=== PATIENT | female | born 1955 | race Caucasian/White ===

== ENCOUNTER 2020-01-26 17:10 | Emergency (ER) | payer BC, SELFPAY ==
[2020-01-26 17:40] VITALS: BP 161/79; PULSE 96; RESP 21; TEMP 36.7; O2SAT 98; BMI 37.1
--- NOTE | 2020-01-26 18:08 | HMH.EDUTC ---
[facility] [place] Disposition Clinical Impression: Abrasion, right lower leg, initial encounter Cellulitis Qualifiers: Site of cellulitis: extremity Site of cellulitis of extremity: lower extremity Laterality: right Qualified Code(s): L03.115 - Cellulitis of right lower limb Disposition: Home, Self-Care Condition on Discharge: Good Instructions: Cellulitis Additional Instructions: Keep the wound clean and dry. Follow up with your regular doctor. Take the antibiotics as directed and apply the topical antibiotics as directed. Watch the wound for signs of worsening infection, such as worsening redness, drainage, swelling, etc. GO TO THE ER FOR ANY WORSENING SYMPTOMS Prescriptions: Mupirocin [Bactroban 2% Ointment 22gm tube] 1 applicatio TP TID 7 Days #1 tube Transmission Status: Received by [facility] #[id number] Doxycycline Hyclate [Doxycycline 100mg Capsule] 100 mg PO Q12 10 Days #20 cap Transmission Status: Received by [facility] #[id number] Referrals: Edith King MD [Primary Care Provider] - Time of Disposition: 18:15 Medical Decision Making - Medical Records Medical records reviewed: No: I reviewed the patient's medical records. - Kam Inquiry Pt receiving controlled substance: No Vital Signs: 01/26/20 17:40 01/26/20 18:20 Temperature 98.1 F 98.1 F Temperature Source Oral Pulse Rate 96 H Pulse Rate [Left Brachial] 96 H Respiratory Rate 21 21 Blood Pressure 161/79 H Blood Pressure [Left Arm] 161/79 H Blood Pressure Mean [Left Arm] 106 Blood Pressure Source [Left Arm] Automatic Cuff Blood Pressure Position [Left Arm] Sitting 02 Sat by Pulse Oximetry 98 Oxygen Delivery Method Room Air [facility] [place] HPI - General Stated complaint: AO 01/17 cut R foot Time Seen by Provider: 01/26/20 18:08 Mode of Arrival: Ambulatory Source of Information: Patient Limitations: No Limitations Description of Symptoms (Recalled from Triage Doc. by RN): PATIENT C/O CUT TO RIGHT JAIME THAT OCCURED LAST SUNDAY. PATIENT STATES SHE THINKS SHE CUT IT ON A PAPER BAG CORNER; SHE IS CONCERNED BECAUSE SHE IS DIABETIC. REDNESS AND SWELLING NOTED TO AREA HEENT Symptoms (Recalled from RN notes): No Resp Symptoms (Recalled from RN notes): No Skin Symptoms (Recalled from RN notes): Yes MS Symptoms (Recalled from RN notes): No Functional Status (Recalled from RN notes): WNL - History of Present Illness Provider Complaint: She states that last week she bumped her right leg. this occured last week. Since then she has had a superficial abrasion on the lateral aspect of her right leg. She is diabetic. She states the skin around the wound has began to turn red. - Related Data Home Medications Medication Instructions Recorded Confirmed Empagliflozin [Jardiance] 25 mg PO DAILY 01/27/18 01/12/19 Glimepiride 4 mg PO BID 01/27/18 01/12/19 Levothyroxine Sodium [Synthroid 88 mcg PO DAILY 01/27/18 01/12/19 88mcg (0.088mg) tablet] Quinapril HCl 20 mg PO DAILY 01/27/18 01/12/19 Sitagliptin Phos/Metformin HCl 1 tab PO BID 01/27/18 01/12/19 [Janumet 50-1,000 mg Tablet] Previous Rx's Medication Instructions Recorded neomycin 3.5 mg-polymyxin 10,000 2 drp OPHTHALMIC QID 10 Days #7.5 07/24/18 unit-hydrocort 10 mg/mL eye ml drop,susp Doxycycline Hyclate [Doxycycline 100 mg PO Q12 10 Days #20 cap 01/26/20 100mg Capsule] Mupirocin [Bactroban 2% Ointment 1 applicatio TP TID 7 Days #1 tube 01/26/20 22gm tube] Allergies Allergy/AdvReac Type Severity Reaction Status Date / Time chlordiazepoxide Allergy Unknown Verified 07/24/18 17:43 [From LIBRAX (WITH CLIDINIUM)] clidinium Allergy Unknown Verified 07/24/18 17:43 [From LIBRAX (WITH CLIDINIUM)] iodine [IODINE] Allergy Unknown Verified 07/24/18 17:43 Penicillins [PENICILLINS] Allergy Unknown Verified 07/24/18 17:43 Sulfa (Sulfonamide Allergy Unknown Verified 07/24/18 17:43 Antibiotics) [SULFA (SULFONAMI
[2020-01-26 18:20] VITALS: BP 161/79; PULSE 96; RESP 21; TEMP 36.7; O2SAT 98
== END 2020-01-26 18:21 | disposition home or self-care (01) ==
PROVIDERS: Emergency Provider Nurse Practitioner Family; PCP Family Medicine
DX: S80.811A Abrasion, right lower leg, initial encounter (principal); L03.115 Cellulitis of right lower limb; E11.9 Type 2 diabetes mellitus without complications; I10 Essential (primary) hypertension
CPT/HCPCS: 99201

== ENCOUNTER 2020-10-24 19:44 | Emergency (ER) | payer BC, SELFPAY ==
[2020-10-24 20:00] VITALS: BP 167/85; PULSE 143; RESP 20; TEMP 37.9; O2SAT 95; BMI 35.5
--- NOTE | 2020-10-24 20:11 | HMH.EDUTC ---
[facility] [place] Disposition Clinical Impression: Fever, Tachycardia Disposition: Home, Self-Care Condition on Discharge: Good Instructions: Preventing the Spread of Coronavirus Discharge Instructions Additional Instructions: You have been tested for COVID19. Please isolate yourself as if you are positive until test results received. Referrals: Henry Sears MD [Primary Care Provider] - Forms: Work/School Release Time of Disposition: 20:31 Medical Decision Making - Kam Inquiry Pt receiving controlled substance: No Vital Signs: 10/24/20 20:00 Temperature 100.2 F H Temperature Source Oral Pulse Rate [Left] 143 H Respiratory Rate 20 Blood Pressure [Right Arm] 167/85 H Blood Pressure Mean [Right Arm] 112 02 Sat by Pulse Oximetry 95 - Lab Data Lab results reviewed: Yes: I reviewed the patient's lab results. Orders (Tests/Meds): ORDERS Category Date Time Status Covid-19 Nasal PCR ([facility]) Routine Lab 10/24/20 19:59 Received [facility] [place] HPI - General Stated complaint: headache and fever Time Seen by Provider: 10/24/20 20:11 Mode of Arrival: Ambulatory Source of Information: Patient Limitations: No Limitations Description of Symptoms (Recalled from Triage Doc. by RN): pt c/o a ROBINS x3 days and a fever, lethargy and cough developed this am. HEENT Symptoms (Recalled from RN notes): Yes (ROBINS) Resp Symptoms (Recalled from RN notes): No (cough) Skin Symptoms (Recalled from RN notes): Yes MS Symptoms (Recalled from RN notes): No Functional Status (Recalled from RN notes): fever and lethargy - History of Present Illness Provider Complaint: Headache, fever, sore throat, cough since this am. Potential exposure to COVID19. No vomiting or diarrhea. Onset (ago): day(s) (1) Relieving factors: none, movement Associated symptoms: cough, fever/chills Treatments prior to arrival: NSAID - Related Data Home Medications Medication Instructions Recorded Confirmed Empagliflozin [Jardiance] 25 mg PO DAILY 01/27/18 01/12/19 Glimepiride 4 mg PO BID 01/27/18 01/12/19 Levothyroxine Sodium [Synthroid 88 mcg PO DAILY 01/27/18 01/12/19 88mcg (0.088mg) tablet] Quinapril HCl 20 mg PO DAILY 01/27/18 01/12/19 Sitagliptin Phos/Metformin HCl 1 tab PO BID 01/27/18 01/12/19 [Janumet 50-1,000 mg Tablet] Previous Rx's Medication Instructions Recorded neomycin 3.5 mg-polymyxin 10,000 2 drp OPHTHALMIC QID 10 Days #7.5 07/24/18 unit-hydrocort 10 mg/mL eye ml drop,susp Doxycycline Hyclate [Doxycycline 100 mg PO Q12 10 Days #20 cap 01/26/20 100mg Capsule] Mupirocin [Bactroban 2% Ointment 1 applicatio TP TID 7 Days #1 tube 01/26/20 22gm tube] Allergies Allergy/AdvReac Type Severity Reaction Status Date / Time chlordiazepoxide Allergy Unknown Verified 07/24/18 17:43 [From LIBRAX (WITH CLIDINIUM)] clidinium Allergy Unknown Verified 07/24/18 17:43 [From LIBRAX (WITH CLIDINIUM)] iodine [IODINE] Allergy Unknown Verified 07/24/18 17:43 Penicillins [PENICILLINS] Allergy Unknown Verified 07/24/18 17:43 Sulfa (Sulfonamide Allergy Unknown Verified 07/24/18 17:43 Antibiotics) [SULFA (SULFONAMIDE ANTIBIOTICS)] morphine Allergy Verified 01/26/20 18:05 - Worker's Comp Is this a Worker's Comp case?: No [facility] History - Hepatitis A Screen Drug use history?: No High risk sexual behaviors?: No History of sexually transmitted infection?: No Currently employed?: No Childcare worker?: No Do you have indoor plumbing?: Yes Do you have electricity?: Yes Attestation statement:: This patient has been screened for Hepatitis A risk factors. I have reviewed the patient's past medical history: Yes 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: Reports:: Cancer, Diabetes Mellitus Type 2 - 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 Smoking Status: Never smoker Alcohol Intake: never Substance Use Type: denies use Occupational Status: other Housing: house Household Members: family Family Hx:: No significant family history ROS Obtain
[2020-10-24 20:25] LABS: UTC Strep Screen (Rapid) Negative (Negative)
[2020-10-24 20:40] VITALS: BP 167/85; PULSE 92; RESP 19; TEMP 37.7
== END 2020-10-24 20:41 | disposition home or self-care (01) ==
PROVIDERS: Emergency Provider Physician Assistant; PCP Family Medicine
DX: U07.1 COVID-19 (principal); E11.9 Type 2 diabetes mellitus without complications; Z79.899 Other long term (current) drug therapy; Z88.0 Allergy status to penicillin; Z88.2 Allergy status to sulfonamides
CPT/HCPCS: 87880; 99203; C9803; G0463; U0003; U0005

== ENCOUNTER → 2020-11-19 09:34 | Outpatient (CLI) | payer BC, SELFPAY ==
--- NOTE | 2020-11-19 09:39 | XR_ITS ---
PROCEDURE: XR SHOULDER LT MIN 2V CLINICAL INDICATION: LT SHOULDER PAIN COMPARISON: No exams were available for comparison FINDINGS: The clavicle is intact. There is a slightly high-riding humeral head with minor subacromial stenosis. There is minor spurring of the inferior AC joint. There are no soft tissue calcifications. IMPRESSION: Somewhat high-riding humeral head suggesting possibility of some degree of rotator cuff pathology Dictated by: Dr. Esdras Fulton MD 11/19/2020 10:26 Dr. Esdras Fulton MD in [place] 11/19/2020 10:26
== END ==
PROVIDERS: PCP Family Medicine; Visit Provider Family Medicine
DX: M25.512 Pain in left shoulder (principal)
CPT/HCPCS: 73030

== ENCOUNTER 2020-12-15 15:30 | Outpatient (RCR) | payer BC, SELFPAY ==
--- NOTE | 2020-12-07 14:49 | HMH.OTOPEV ---
OT Inpatient Evaluation Rehab OT Outpatient Eval Start: 12/07/20 14:36 Freq: Status: Active Protocol: Document 12/07/20 14:37 RMYENNY (Rec: 12/07/20 14:49 RMYENNY [id number]) Electronically Signed By Andrew Aponte OT 12/07/20 14:37 Outpatient Therapy Subjective History Subjective History Pt is a 65 year old female who reports to therapy for intial evaluation to left shoulder. Pt reports ~2 months ago her left shoulder begain having significant pain. She does not recall a specific injury initiating the pain. She has noticed since the pain started , the shoulder has become more stiff and weak. 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 This job requires constant bilatearl UE use: lifting, push/pull, and positioning. At this time she has not had a MRI or seen an ortho. She did have a x-ray showing a slight high riding humeral head. Pt has a past medical history of diabetes, HTN, Thyroid disorder, bladdar cancer. Pt does demonstrate with decreased AROM and strength at left shoulder. Pt will continue to be seen twice a week in order to address deficits. Chief Complaint Pain,Spasms,Weakness Symptom Type Ache,Throb,Sharp,Dull Symptoms Relieved By Nothing Symptoms Aggravated By Physical Activity,Lifting Prior Functional Limitations None Current Functional Limitations Reaching,Lifting,Housework, Driving,Sleeping,Recreation Activity Symptom Description Constant but Variable Level of pain today (0-10) 5 Pain scale - at its best (0-10) 3 Pain scale - at its worst (0-10) 8 Shoulder/Elbow Eval Shoulder Objective Measurements Shoulder ROM Left Shoulder Abduction Active Range of 115 degrees Motion (degrees) Shoulder Flexion Active Range of Motion 125 degrees (degrees) Query Text: Shoulder External Rotation Active Range 40 degrees of Motion (degrees)
--- NOTE | 2020-12-07 14:51 | HMH.OTOPEV ---
OT Inpatient Evaluation Rehab OT Outpatient Eval Start: 12/07/20 14:36 Freq: Status: Active Protocol: Document 12/07/20 14:37 RMYENNY (Rec: 12/07/20 14:49 RMYENNY [id number]) Electronically Signed By Andrew Aponte OT 12/07/20 14:37 Outpatient Therapy Subjective History Subjective History Pt is a 65 year old female who reports to therapy for intial evaluation to left shoulder. Pt reports ~2 months ago her left shoulder begain having significant pain. She does not recall a specific injury initiating the pain. She has noticed since the pain started , the shoulder has become more stiff and weak. 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 This job requires constant bilatearl UE use: lifting, push/pull, and positioning. At this time she has not had a MRI or seen an ortho. She did have a x-ray showing a slight high riding humeral head. Pt has a past medical history of diabetes, HTN, Thyroid disorder, bladdar cancer. Pt does demonstrate with decreased AROM and strength at left shoulder. Pt will continue to be seen twice a week in order to address deficits. Chief Complaint Pain,Spasms,Weakness Symptom Type Ache,Throb,Sharp,Dull Symptoms Relieved By Nothing Symptoms Aggravated By Physical Activity,Lifting Prior Functional Limitations None Current Functional Limitations Reaching,Lifting,Housework, Driving,Sleeping,Recreation Activity Symptom Description Constant but Variable Level of pain today (0-10) 5 Pain scale - at its best (0-10) 3 Pain scale - at its worst (0-10) 8 Shoulder/Elbow Eval Shoulder Objective Measurements Shoulder ROM Left Shoulder Abduction Active Range of 115 degrees Motion (degrees) Shoulder Flexion Active Range of Motion 125 degrees (degrees) Query Text: Shoulder External Rotation Active Range 40 degrees of Motion (degrees)
== END 2020-12-15 15:35 | disposition home or self-care (01) ==
LOC: OT 15:30
PROVIDERS: PCP Family Medicine; Visit Provider Family Medicine
DX: M25.512 Pain in left shoulder (principal)
CPT/HCPCS: 97010; 97110; 97166

== ENCOUNTER 2020-12-20 16:45 | Emergency (ER) | payer BC, SELFPAY ==
[2020-12-20 17:50] VITALS: BP 151/74; PULSE 90; RESP 21; TEMP 37.1; O2SAT 99; BMI 35.8
--- NOTE | 2020-12-20 18:51 | HMH.EDUTC ---
[facility] [place] Clinical Impression: Parotitis Disposition: Home, Self-Care Condition on Discharge: Good Instructions: DI for Parotitis-Adult, Parotitis Additional Instructions: Drink plenty of water, and stay well hydrated. Apply warm compresses to the swollen areas. You can gargle with warm salt water four times daily. If you have a blocked parotid gland you can gently massage the gland (s) that are affected to help return the normal... Eat soft foods that do not require too much chewing. Drink plenty of fluids. Follow up with Dr Segovia On as scheduled Return if needed Straight to ER if any life threatening symptom Prescriptions: Doxycycline Monohydrate [Doxycycline Stearns 100mg Tab] 100 mg PO Q12 10 Days #20 tab Transmission Status: Pending to [facility] #[id number] Referrals: Henry Sears MD [Primary Care Provider] - As needed Trever Segovia MD [Staff Physician] - 12/23/20 11:00 am Forms: Work/School Release Time of Disposition: 19:11 Medical Decision Making - Kam Inquiry Pt receiving controlled substance: No Kam was queried for this patient: No Vital Signs: 12/20/20 17:50 Temperature 98.7 F Temperature Source Oral Pulse Rate [Left Brachial] 90 Respiratory Rate 21 Blood Pressure [Left Arm] 151/74 H Blood Pressure Mean [Left Arm] 99 Blood Pressure Source [Left Arm] Automatic Cuff Blood Pressure Position [Left Arm] Sitting 02 Sat by Pulse Oximetry 99 Oxygen Delivery Method Room Air - Physician Consults Physician Consulted: Dr Segovia Time: 19:12 Reason -: ENT Eval/Care Comment/Response: Spoke with Dr Segovia he advised to start her on Doxy 100mg BID and have her come and see him in the office on at 11am and gargle warm salt water, drink plenty of fluids and take medications [facility] [place] [facility] [place] - General Stated complaint: L jaw swollen Time Seen by Provider: 12/20/20 18:20 Mode of Arrival: Ambulatory Source of Information: Patient Limitations: No Limitations Description of Symptoms (Recalled from Triage Doc. by RN): PATIENT C/O SWOLLEN LEFT JAW AND LEFT EAR PAIN THAT STARTED TODAY HEENT Symptoms (Recalled from RN notes): Yes Resp Symptoms (Recalled from RN notes): No Skin Symptoms (Recalled from RN notes): No MS Symptoms (Recalled from RN notes): No Functional Status (Recalled from RN notes): WNL - History of Present Illness Provider Complaint: Patient states that she is having pain in her left ear and noticed earlier today it looked a little swollen under her left ear and was tender to the touch States that she has TMJ and her jaw has been popping and not sure if she may have some swelling do to that Statse that she has been able to eat ok just feels like it is swollen and hurts States that as the evening has went on the swelling seems to be getting worse - Related Data Home Medications Medication Instructions Recorded Confirmed Empagliflozin [Jardiance] 25 mg PO DAILY 01/27/18 01/12/19 Glimepiride 4 mg PO BID 01/27/18 01/12/19 Levothyroxine Sodium [Synthroid 88 mcg PO DAILY 01/27/18 01/12/19 88mcg (0.088mg) tablet] Quinapril HCl 20 mg PO DAILY 01/27/18 01/12/19 Sitagliptin Phos/Metformin HCl 1 tab PO BID 01/27/18 01/12/19 [Janumet 50-1,000 mg Tablet] Previous Rx's Medication Instructions Recorded neomycin 3.5 mg-polymyxin 10,000 2 drp OPHTHALMIC QID 10 Days #7.5 07/24/18 unit-hydrocort 10 mg/mL eye ml drop,susp Doxycycline Hyclate [Doxycycline 100 mg PO Q12 10 Days #20 cap 01/26/20 100mg Capsule] Mupirocin [Bactroban 2% Ointment 1 applicatio TP TID 7 Days #1 tube 01/26/20 22gm tube] Doxycycline Monohydrate 100 mg PO Q12 10 Days #20 tab 12/20/20 [Doxycycline Stearns 100mg Tab] Allergies Allergy/AdvReac Type Severity Reaction Status Date / Time chlordiazepoxide Allergy Unknown Verified 07/24/18 17:43 [From LIBRAX (WITH CLIDINIUM)] clidinium Allergy Unknown Verified 07/24/18 17:43 [From LIBRAX (WITH C
[2020-12-20 19:10] VITALS: BP 151/74; PULSE 90; RESP 21; TEMP 37.1; O2SAT 99
== END 2020-12-20 19:14 | disposition home or self-care (01) ==
PROVIDERS: Emergency Provider Nurse Practitioner; PCP Family Medicine
DX: K11.20 Sialoadenitis, unspecified (principal); E11.9 Type 2 diabetes mellitus without complications; Z88.0 Allergy status to penicillin; Z88.2 Allergy status to sulfonamides; Z88.5 Allergy status to narcotic agent
CPT/HCPCS: 99202; G0463

== ENCOUNTER 2021-08-01 14:39 | Emergency (ER) | payer BC, MEDICARE, SELFPAY ==
[2021-08-01] VITALS (10 sets, daily range): BP systolic 133–164; BP diastolic 73–88; PULSE 108–130; RESP 16–18; TEMP 36.7; O2SAT 94–98; BMI 35.5
--- NOTE | 2021-08-01 14:35 | ECG_ITS ---
APPROVED REPORT Exam: Resting ECG HR:138 bpm ECG Measurements Heart Rate 138 AXES FL 143 P 58 QRSd 82 QRS -55 QT 302 T 58 QTc 382 Conclusion SINUS TACHYCARDIA LAD with LAFB Late r wave progression ABNORMAL ECG UNCONFIRMED REPORT Electronically signed by : Henry Macias MD 08/03/2021 14:45:14
--- NOTE | 2021-08-01 14:44 | XR_ITS ---
FINAL REPORT CLINICAL HISTORY: chest pain COMPARISON: January 27, 2018 FINDINGS: The heart size is normal. The mediastinum is normal. There is no focal infiltrate or edema. There are no pleural effusions. There is no pneumothorax. There is no osseous abnormality. IMPRESSION: No acute cardiopulmonary process Reviewed, Interpreted and Dictated by Dante Avitia III, MD Transcribed by Rey Rodríguez Authenticated and [facility]
--- NOTE | 2021-08-01 14:57 | HMH.EDCP ---
ED Disposition Clinical Impression: Nonspecific chest pain UTI (urinary tract infection) Qualifiers: Urinary tract infection type: acute cystitis Hematuria presence: with hematuria Qualified Code(s): N30.01 - Acute cystitis with hematuria Disposition: Home, Self-Care Condition on Discharge: Good Instructions: DI for Atypical Chest Pain Prescriptions: cephALEXin [Cephalexin 500mg Tab] 500 mg PO BID #20 tab Transmission Status: Pending to [email or web address] #[id number] Referrals: Henry Sears MD [Primary Care Provider] - - Critical Care Critical Care Time: No Attestation: On 08/01/21, the high probability of a clinically significant, sudden or life threatening deterioration of the following system(s) required my full and direct attention, intervention and personal management. The time I documented below is in addition to time spent performing reported procedures but includes the following listed in this critical care notation. Medical Decision Making - Medical Records Medical records reviewed: Yes: I reviewed the patient's medical records. - Kam Inquiry Pt receiving controlled substance: No Vital Signs: 08/01/21 14:39 08/01/21 15:54 Pulse Rate 115 H Pulse Rate [Left Radial] 130 H Respiratory Rate 18 16 Blood Pressure 146/75 H Blood Pressure [Right Arm] 135/73 Blood Pressure Mean [Right Arm] 93 Blood Pressure Source Automatic Cuff Blood Pressure Position Sitting 02 Sat by Pulse Oximetry 96 98 Oxygen Delivery Method Room Air Room Air - Lab Data Lab Results 08/01/21 14:48: WBC 19.6 H, RBC 5.50 H, Hgb 16.5 H, Hct 48.7 H, MCV 88.5, MCH 30.0, MCHC 33.9, RDW 13.9, Plt Count 224, MPV 10.0, Neut % (Auto) 85.2 H, Lymph % (Auto) 8.4 L, [place] % (Auto) 4.2, Eos % (Auto) 1.7, Baso % (Auto) 0.4, Neut # (Auto) 16.7 H, Lymph # (Auto) 1.7, [place] # (Auto) 0.8, Eos # (Auto) 0.3, Baso # (Auto) 0.1, Total Counted 100, Neutrophils % (Manual) 81 H, Lymphocytes % (Manual) 9 L, Monocytes % (Manual) 10 H, Platelet Estimate Normal, RBC Morphology Normal 08/01/21 14:48: Sodium 139, Potassium 3.9, Chloride 106, Carbon Dioxide 23, Anion Gap 13.9, BUN 6 L, Creatinine 0.50 L, Estimated Creat Clear 87, Estimated GFR 123, Est GFR ( Amer) 149, Glucose 204 H, Calcium 10.6 H, Total Bilirubin 0.8, AST 54 H, ALT 38, Alkaline Phosphatase 104, Troponin I < 0.01, NT-Pro-B Natriuret Pep 66.3, Total Protein 7.7, Albumin 4.4, Globulin 3.3 H, Albumin/Globulin Ratio 1.3, Lipase 144 08/01/21 15:50: Urine Color Yellow, Urine Appearance Clear, Urine pH 6.0, Ur Specific [place] >= 1.030, Urine Protein 2+, Urine Glucose (UA) Negative, Urine Ketones Trace, Urine Blood Trace-i, Urine Nitrate Negative, Urine Bilirubin 1+ A, Urine Urobilinogen 0.2, Ur Leukocyte Esterase Negative, Urine RBC 3-5, Urine WBC 3-5, Ur Squamous Epith Cells 5-10, Urine Bacteria 1+ 08/01/21 18:06: Troponin I < 0.01 Result diagrams: 08/01/21 14:48 08/01/21 14:48 Orders (Tests/Meds): ED MEDICATIONS Discontinued Medications Generic Name Dose Route Start Last Admin Trade Name Freq PRN Reason Stop Dose Admin Sodium Chloride 1,000 mls @ 999 mls/hr 08/01/21 14:45 08/01/21 14:49 Sod Chlor 0.9% 1000ml Bag IV 08/01/21 15:45 999 mls/hr .Q1H1M NICOL Administration ORDERS Category Date Time Status Troponin I Q3H Lab 08/01/21 20:45 Ordered - Radiology Data #1 Image(s): Chest Image Reviewed: Yes I reviewed the patient's radiology results, Yes I reviewed the patient's radiology image, Yes I have reviewed radiologist's interpretation Preliminary Findings: Normal/NAD - CT Data CT Scan: Abdomen, Pelvis Time Received: 18:[address] Reviewed: Yes: I have reviewed the patient's CT results, I have viewed the radiologist's interpretation Findings Narrative: IMPRESSION: 1. Nonobstructing stones in the collecting systems of both kidneys. 2. No other acute changes in the abdomen or pelvis. - ECG Data Tracing #1 I reviewed this ECG and
[2021-08-01 15:01] LABS: Basophils # 0.1 K/mm3 (0-0.2); Basophils % 0.4 % (0.1-2.0); Eosinophils # 0.3 K/mm3 (0.0-0.4); Eosinophils % 1.7 % (0.1-12.0); Hematocrit 48.7 % (37.0-47.0); Hemoglobin 16.5 g/dL (12.2-16.2); Lymphocytes # 1.7 K/mm3 (0.7-4.5); Lymphocytes % 8.4 % (10-50); Mean Corpuscular HGB Conc 33.9 g/dL (31.8-35.4); Mean Corpuscular Volume 88.5 fl (81-99); Monocytes # 0.8 K/mm3 (0.1-1.0); Monocytes % 4.2 % (1.7-9.3); Neutrophils # 16.7 K/mm3 (1.8-7.8); Neutrophils % 85.2 % (37.0-80.0); Platelet Count 224 K/mm3 (142-424); Red Cell Distribution Width 13.9 % (11.5-17.5); White Blood Count 19.6 K/mm3 (4.8-10.8)
[2021-08-01 15:03] LABS: MANUAL DIFFERENTIAL MANUAL DIFFERENTIAL (MANUAL DIFF)
[2021-08-01 15:04] LABS: Chloride 106 mmol/L (98-107); Potassium 3.9 mmoL/L (3.5-5.1); Sodium 139 mmol/L (136-145)
[2021-08-01 15:07] LABS: Alanine Aminotransferase 38 U/L (12-78); Albumin Level 4.4 g/dl (3.5-5.0); Albumin/Globulin Ratio 1.3 (1.1-1.8); Alkaline Phosphatase 104 U/L (38-126); Anion Gap 13.9 mEq/L (5-15); Aspartate Amino Transferase 54 U/L (14-36); Bilirubin,Total 0.8 mg/dl (0.2-1.3); Blood Urea Nitrogen 6 mg/dl (7-17); Calcium 10.6 mg/dl (8.4-10.2); Carbon Dioxide 23 mmol/L (22.0-30.0); Creatinine Clearance Estimated 87 mL/min (50-200); Estimated Glomerular Filt Rate 123 ml/min (>60); GFR (African American) 149 ML/MIN (>60); Globulin 3.3 g/dL (1.3-3.2); Glucose 204 mg/dl (74-100); Lipase 144 U/L (23-300); Total Protein,Serum 7.7 g/dl (6.3-8.2)
[2021-08-01 15:18] LABS: Lymphocytes % 9 % (10-50); Monocytes % 10 % (2-9); NT Pro Brain Natriuretic Pep. 66.3 pg/mL (0-125); Neutrophils % 81 % (42-76); Total Cells Counted 100
[2021-08-01 15:20] LABS: Platelet Estimate Normal; RBC Morphology Normal
[2021-08-01 15:27] LABS: Troponin I < 0.01 ng/ml (0.00-0.034)
--- NOTE | 2021-08-01 15:47 | PC.NURSE ---
Rounded on patient at this time. Pt up and ambulated to restroom.
[2021-08-01 15:54] LABS: Microscopic, Urine URINE MICROSCOPIC (MICROSCOPIC)
--- NOTE | 2021-08-01 15:54 | PC.NURSE ---
pt returned from restroom, able to provide urine sample. Hooked back up to fluids and datascope. Warm blankets provided. No other needs at this time.
[2021-08-01 16:05] LABS: Appearance,Urine CLEAR (Clear); Blood, Urine TRACE-I (Negative); Color,Urine YELLOW (Yellow); Glucose,Urine (UA) Negative (Negative); Ketones,Urine TRACE (Negative); Leukocyte Esterase,Urine Negative (Negative); Nitrate,Urine Negative (Negative); Protein,Urine 2+ (Negative); Specific Gravity, Urine >= 1.030 (1.005-1.030); Urobilinogen,Urine 0.2 EU/dl (0.2)
[2021-08-01 16:26] LABS: Bilirubin,Urine 1+ (Negative)
[2021-08-01 16:34] LABS: Bacteria,Urine 1+ /lpf
--- NOTE | 2021-08-01 17:03 | CT_ITS ---
PROCEDURE INFORMATION: Exam: CT Abdomen And Pelvis Without Contrast Exam date and time: 08/01/2021 5:17 PM Age: 65 years old Clinical indication: Abdominal pain; Prior surgery; Additional info: Low abd pain, h/o kidney stones TECHNIQUE: Imaging protocol: Computed tomography of the abdomen and pelvis without contrast. Radiation optimization: All CT scans at this facility use at least one of these dose optimization techniques: automated exposure control; mA and/or kV adjustment per patient size (includes targeted exams where dose is matched to clinical indication); or iterative reconstruction. COMPARISON: ABDPELW/O CT ABD PELVIS W/O CONTRAST 10/04/2016 1:09 AM FINDINGS: Liver: Mild diffuse fatty infiltration again noted. No focal lesions or acute changes. Gallbladder and bile ducts: Prior cholecystectomy again noted. Normal bile ducts. Pancreas: Diffuse atrophy again noted. No acute changes or focal lesions. Spleen: Normal. No splenomegaly. Adrenal glands: Normal. No mass. Kidneys and ureters: Small nonobstructing renal collecting system stones. No obstructing stones or hydronephrosis. No obstructing stones or hydronephrosis. Stomach and bowel: Unremarkable. No obstruction. No mucosal thickening. Appendix: No evidence for appendicitis. Intraperitoneal space: Unremarkable. No free air. No significant fluid collection. Vasculature: Unremarkable. No abdominal aortic aneurysm. Lymph nodes: Unremarkable. No enlarged lymph nodes. Urinary bladder: Unremarkable as visualized. Reproductive: Unremarkable as visualized. Bones/joints: [id number] degenerative changes in the spine. Diffuse idiopathic skeletal hyperostosis. No fractures. Soft tissues: Unremarkable. IMPRESSION: 1. Nonobstructing stones in the collecting systems of both kidneys. 2. No other acute changes in the abdomen or pelvis.
[2021-08-01 18:37] LABS: Troponin I < 0.01 ng/ml (0.00-0.034)
== END 2021-08-01 19:18 | disposition home or self-care (01) ==
PROVIDERS: Emergency Provider Emergency Medicine; PCP Family Medicine
DX: N13.6 Pyonephrosis (principal); R07.9 Chest pain, unspecified; E11.9 Type 2 diabetes mellitus without complications; Z85.9 Personal history of malignant neoplasm, unspecified; Z88.0 Allergy status to penicillin; Z88.2 Allergy status to sulfonamides; Z88.8 Allergy status to other drugs, medicaments and biological substances
CPT/HCPCS: 36415; 71045; 74176; 80053; 81001; 83690; 83880; 84484; 85007; 85025; 93005; 96360; 99285

== ENCOUNTER 2021-11-29 19:35 | Inpatient (IN) | payer BC, MEDICARE, SELFPAY ==
[2021-11-29 20:50] VITALS: BP 125/51; PULSE 138; RESP 22; TEMP 37.4; O2SAT 99; BMI 35.5
--- NOTE | 2021-11-29 21:10 | PC.NURSE ---
Dr. Rodriguez at bedside
[2021-11-29 21:13] VITALS: BMI 35.5
--- NOTE | 2021-11-29 21:13 | CT_ITS ---
PROCEDURE INFORMATION: Exam: CT Abdomen And Pelvis With Contrast Exam date and time: 11/29/2021 9:55 PM Age: 66 years old Clinical indication: Nausea and vomiting; Additional info: Abd pain, n/v/d TECHNIQUE: Imaging protocol: Computed tomography of the abdomen and pelvis with contrast. Radiation optimization: All CT scans at this facility use at least one of these dose optimization techniques: automated exposure control; mA and/or kV adjustment per patient size (includes targeted exams where dose is matched to clinical indication); or iterative reconstruction. Contrast material: ISOVUE; Contrast volume: 75 ml; Contrast route: IV; COMPARISON: CT ABDOMEN PELVIS WO CON 08/01/2021 5:17 PM FINDINGS: Lungs: There is a 3 mm calcified nodule of the right lower lobe. No focal consolidation. No pleural effusion. Liver: The liver is mildly enlarged measuring 22 cm. There is diffuse low-attenuation of the liver consistent with fatty infiltration. There are mildly nodular hepatic surface contours suggesting parenchymal liver disease. No discrete hepatic mass. Gallbladder and bile ducts: Status post cholecystectomy. Pancreas: Unremarkable. Spleen: Mild splenomegaly. Small splenic calcification noted. Adrenal glands: Unremarkable. Kidneys and ureters: There is a 3 mm nonobstructing right renal stone. There are a few left nonobstructing renal stones measuring up to 4 mm. No hydronephrosis or renal mass. The ureters are normal in caliber. Stomach and bowel: Small bowel caliber is normal. No evidence of obstruction. No bowel wall thickening. No significant colonic diverticulosis or CT evidence of acute diverticulitis. Appendix: No evidence of appendicitis. Intraperitoneal space: No free air. No significant fluid collection. Retroperitoneal space: No bulky lymphadenopathy. Vasculature: Unremarkable. No abdominal aortic aneurysm. Lymph nodes: Unremarkable. No enlarged lymph nodes. Urinary bladder: The urinary bladder is decompressed and unremarkable. Reproductive: Status post hysterectomy. Bones/joints: Unremarkable. No acute osseous abnormality. Soft tissues: There are postoperative changes of the periumbilical ventral abdominal wall, stable. No abdominal wall hernia. IMPRESSION: 1. No acute findings. 2. Mild hepatosplenomegaly with diffuse fatty infiltration of liver. Nodular hepatic surface contours suggest parenchymal liver disease. 3. Bilateral nonobstructing nephrolithiasis. 4. Status post cholecystectomy and hysterectomy.
--- NOTE | 2021-11-29 21:16 | PC.NURSE ---
verbal orders received from Dr. Rodriguez, orders placed
[2021-11-29 21:21] LABS: Coronavirus 19, PCR Not Detected (NotDetected); Influenza A, PCR Not Detected (NotDetected); Influenza B, PCR Not Detected (NotDetected)
[2021-11-29 21:30] LABS: Basophils # 0.1 K/mm3 (0-0.2); Basophils % 0.5 % (0.1-2.0); Eosinophils # 0.3 K/mm3 (0.0-0.4); Eosinophils % 1.2 % (0.1-12.0); Hematocrit 50.7 % (37.0-47.0); Hemoglobin 16.2 g/dL (12.2-16.2); Lymphocytes # 1.3 K/mm3 (0.7-4.5); Lymphocytes % 6.2 % (10-50); Mean Corpuscular Hemoglobin 29.8 pg (27.0-31.2); Monocytes # 0.8 K/mm3 (0.1-1.0); Monocytes % 3.9 % (1.7-9.3); Neutrophils # 18.8 K/mm3 (1.8-7.8); Neutrophils % 88.1 % (37.0-80.0); Platelet Count 321 K/mm3 (142-424); Red Blood Count 5.45 M/mm3 (4.20-5.40); Red Cell Distribution Width 13.8 % (11.5-17.5); White Blood Count 21.3 K/mm3 (4.8-10.8)
[2021-11-29 21:33] LABS: Chloride 99 mmol/L (98-107); Potassium 3.6 mmoL/L (3.5-5.1); Sodium 139 mmol/L (136-145)
[2021-11-29 21:35] LABS: MANUAL DIFFERENTIAL MANUAL DIFFERENTIAL (MANUAL DIFF)
[2021-11-29 21:36] LABS: Alanine Aminotransferase 38 U/L (12-78); Alkaline Phosphatase 121 U/L (38-126); Amylase 51 U/L (30-110); Anion Gap 24.6 mEq/L (5-15); Aspartate Amino Transferase 62 U/L (14-36); Bilirubin,Total 1.1 mg/dl (0.2-1.3); Blood Urea Nitrogen 9 mg/dl (7-17); Calcium 10.1 mg/dl (8.4-10.2); Carbon Dioxide 19 mmol/L (22.0-30.0); Creatinine Clearance Estimated 86 mL/min (50-200); Estimated Glomerular Filt Rate 72 ml/min (>60); GFR (African American) 87 ML/MIN (>60); Glucose 268 mg/dl (74-100); Lipase 179 U/L (23-300)
[2021-11-29 21:37] LABS: Albumin Level 4.6 g/dl (3.5-5.0); Albumin/Globulin Ratio 1.4 (1.1-1.8); Globulin 3.4 g/dL (1.3-3.2)
[2021-11-29 21:42] LABS: Lactic Acid 7.6 mmol/L (0.7-2.1)
--- NOTE | 2021-11-29 21:49 | PC.NURSE ---
Dr. Rodriguez notified of critical lactic
--- NOTE | 2021-11-29 21:57 | PC.NURSE ---
Pt reports to [facility] of a previous reaction during head ct with contrast approx [address] Rodriguez notified and s/w pt and regarding this. Pt reports she had hives all over my throat . Denies any breathing trouble a this occurrence. Pt agreed to have CT with contrast and will monitor for any reaction.
--- NOTE | 2021-11-29 21:58 | HMH.EDNVD ---
Discharge Plan Disposition Patient Disposition: Admitted As Inpatient Chief Complaint: Nausea/Vomiting/Diarrhea Prescriptions Prescriptions: No Action metformin 1,000 mg tablet 500 mg PO BID Label Comments: TAKE 1 TABLET BY MOUTH TWICE DAILY WITH A MEAL Rybelsus 14 mg tablet 14 mg PO DAILY Label Comments: TAKE 1 TABLET BY MOUTH EVERY DAY 30 MINUTES BEFORE FIRST FOOD OR BEVERAGE OR MEDICINE OF THE DAY levothyroxine 88 MCG tablet 88 mcg PO DAILY glimepiride 4 MG tablet 4 mg PO BID quinapril 20 MG tablet 20 mg PO DAILY Referrals Follow up/Referrals: Edith King MD [Primary Care Provider] - See instructions Clinical Impressions Clinical Impression: Gastroenteritis, DKA (diabetic ketoacidosis), Diabetes mellitus, Obesity Instructions Patient Instructions: DI for Diarrhea and Traveler's Diarrhea -- Adult, DI for Diarrhea and Traveler's Diarrhea -- Child, DI for Nausea -- Adult, DI for Nausea -- Child Discharge ED Provider: Samuel Rodriguez Nausea/Vomiting/Diarrhea HPI General Chief complaint: Nausea/Vomiting/Diarrhea Stated complaint: V&D Time Seen by Provider: 11/29/21 21:20 Mode of Arrival: Family Vehicle Source of Information: Patient Limitations: No Limitations Description of Symptoms (Recalled from ER Triage Doc. by RN): Pt c/o nausea, vomiting, and diarrhea that began this evening at 1730. States she is weak and having abd cramping. States she has felt like I had a fever coming on earlier . 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 Denies cough or SOA. She does report runny nose. History of Present Illness HPI Narrative: pt with vomiting and diarrhea w/o blood or known exposure and has crampy abd pain in diabetic pt - no resp sx complaint: nausea, vomiting, diarrhea and abdominal pain Onset (ago): hour(s) Associated Abdominal Pain: Yes Location of pain: diffuse Severity: moderate Quality: cramping Consistency: intermittent Associated symptoms: denies other symptoms Related Data Home Medications Medication Instructions Recorded Confirmed glimepiride 4 mg tablet 4 mg PO BID DM 01/27/18 11/29/21 levothyroxine 88 mcg tablet 88 mcg PO DAILY THYROID 01/27/18 11/29/21 quinapril 20 mg tablet 20 mg PO DAILY HTN 01/27/18 11/29/21 metformin 1,000 mg tablet 500 mg PO BID Diabetes 11/29/21 11/29/21 semaglutide 14 mg tablet (Rybelsus) 14 mg PO DAILY Diabetes 11/29/21 11/29/21 Allergies Allergy/AdvReac Type Severity Reaction Status Date / Time chlordiazepoxide Allergy Unknown Verified 12/23/20 10:42 [From LIBRAX (WITH CLIDINIUM)] clidinium Allergy Unknown Verified 12/23/20 10:42 [From LIBRAX (WITH CLIDINIUM)] iodine [IODINE] Allergy Unknown Verified 12/23/20 10:42 Penicillins [PENICILLINS] Allergy Unknown Verified 12/23/20 10:42 Sulfa (Sulfonamide Allergy Unknown Verified 12/23/20 10:42 Antibiotics) [SULFA (SULFONAMIDE ANTIBIOTICS)] morphine Allergy Verified 12/23/20 10:42 PFSH PFSH 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 Smoking Status: Never smoker alcohol intake: never substance use type: denies use current occupational status: other Travel in the last 8 weeks: None household members: family housing: house ROS Obtained: Yes All systems reviewed & no additional complaints except as documented Constitutional Constitutional: Denies fever(s), Denies frequent falls and Reports weakness Eyes Eyes: Denies diplopia ENT Ears, Nose, Mouth, and Throat: Denies facial pain Cardiovascular Cardiovascular: Denies chest pain with activity Respiratory Respiratory: Denies cough Gastrointestinal Gastrointestingal: Reports as per HPI and vomiting Musculoskeletal Musculoskeletal: Denies back pain Integumentary/Breasts Skin/Breast: Denies rash Neurologic Neurologic: Denies frequent falls and Reports weakness Physical Exam General General appearance: alert and
[2021-11-29 22:03] LABS: Microscopic, Urine URINE MICROSCOPIC (MICROSCOPIC)
[2021-11-29 22:06] LABS: Appearance,Urine CLOUDY (Clear); Blood, Urine TRACE-I (Negative); Color,Urine YELLOW (Yellow); Glucose,Urine (UA) Negative (Negative); Ketones,Urine 1+ (Negative); Leukocyte Esterase,Urine Negative (Negative); Nitrate,Urine Negative (Negative); PH,Urine 5.5 (5.0-8.5); Protein,Urine 3+ (Negative); Specific Gravity, Urine >= 1.030 (1.005-1.030); Urobilinogen,Urine 0.2 EU/dl (0.2)
[2021-11-29 22:08] LABS: Bilirubin,Urine 2+ (Negative)
[2021-11-29 22:25] LABS: Amorphous Sediment,Urine 1+ /lpf; Bacteria,Urine 4+ /lpf; Squamous Epithelial Cell,Urine 20-50 #/hpf (0-5)
[2021-11-29 22:27] LABS: Acetone, Serum (Rapid) Small (None Detect)
[2021-11-29 22:35] LABS: Eosinophils % 2 % (0-3); Lymphocytes % 6 % (10-50); Monocytes % 7 % (2-9); Neutrophils % 85 % (42-76); Total Cells Counted 100
[2021-11-29 22:36] LABS: Platelet Estimate Normal; RBC Morphology Normal
[2021-11-29 23:08] VITALS: BP 130/59; PULSE 120; O2SAT 95
[2021-11-29 23:33] VITALS: BMI 34.0
--- NOTE | 2021-11-29 23:36 | EXP.HP ---
History of Present Illness *Admission Date: 11/29/21 *Reason for visit:: Nausea, vomiting, diarrhea, fevers. *History of present illness: Ms. Ayala is a 66-year-old female with a past medical history that is positive for Diabetes Mellitus, Hypothyroidism and HTN. She presents to [facility] with acute onset of nausea, vomiting and diarrhea associated with fevers body aches and chills that she starts began this afternoon. Work-up in the ER is concerning for DKA and Sepsis. The patient has an elevated WBC at 21.3 and urine is showing 4 plus bacteria with lactic acid level of 7.6. Also Co2 is 19 and anion gap is 24.6 with small Acetone. The patient will be admitted with initial impression: DKA and Sepsis. The patient will be transferred from the ER to the ICU. She will be placed initially on DKA protocol, it is mild, it will be monitored closely as gap closes and transition her from iv to sub q insulin. She will be placed on broad spectrum antibiotics while we await cultures. The plan of care was discussed with the patient and her mother in the ER prior to her admission. Both verbalized understanding and agreement with the plan of care. [facility] 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 (Updated 11/30/21 @ 01:36 by Marine Yusuf RN) Cholelithiases Dermatitis Dermatitis Dermatitis Endometrial cancer GERD (gastroesophageal reflux disease) Hypertension Hypothyroidism UTI (urinary tract infection) Family History (Updated 11/30/21 @ 01:34 by Marine Yusuf RN) Family history of GERD Breast cancer Endometrial cancer Hypertension 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 (Updated 11/30/21 @ 01:38 by Marine Yusuf RN) Smoking Status: Never smoker alcohol intake: never substance use type: denies use current occupational status: employed and other Travel in the last 8 weeks: None household members: family housing: house Review of Systems Review of Systems Review of systems:: pertinent systems reviewed and negative unless documented below Constitutional Constitutional: Reports body ache(s), Reports chills, Reports fever(s) and Reports weakness Eyes Eyes: Reports system reviewed and no additional complaints, except as documented ENT Ears, Nose, Mouth, and Throat: Reports system reviewed and no additional complaints, except as documented *Cardiovascular Cardiovascular: Reports system reviewed and no additional complaints, except as documented *Respiratory Respiratory: Reports system reviewed and no additional complaints, except as documented *Gastrointestinal Gastrointestinal: Reports abdominal pain, Reports diarrhea, Reports nausea and Reports vomiting *Genitourinary Genitourinary: Reports urinary urgency *Musculoskeletal Musculoskeletal: Reports myalgias Integumentary/Breasts Skin/Breast: Reports system reviewed and no additional complaints, except as documented *Neurologic Neurologic: Reports system reviewed and no additional complaints, except as documented and Reports weakness Psychiatric Psychiatric: Reports system reviewed and no additional complaints, except as documented Endocrine Endocrine: Reports system reviewed and no additional complaints, except as documented Hematologic/Lymphatic Hematologic/Lymphatic: Reports system reviewed and no additional complaints, except as documented Allergic/Immunologic Allergic/Immunologic: Reports system reviewed and no additional complaints, except as documented Meds Home Medications and Allergies Home Medications Medication Instructions Recorded Confirmed Type glimepiride 4 mg tablet 8 mg PO DAILYDM Diabetes 01/27/18 11/30/21 History levothyroxine 88 mcg tablet 88 mcg PO DAILYDM hypothyroidism 01/27/18 11/30/21 History quinapril 20 mg tablet 40 mg PO DAILY High blood pressure 01/27/18 11/30/21 History metformin 1,000 mg tablet 1,000 mg PO BID Diabetes 11/29/21 11/30/21 History semaglutide 14 mg tablet (Rybelsus) 14 mg PO DAILYDM Diabetes 11/29/21 11/30/21 History New Prescriptions to Start
[2021-11-29 23:47] VITALS: BP 131/60; PULSE 98; RESP 18; TEMP 36.6; O2SAT 98
[2021-11-30] VITALS (9 sets, daily range): BP systolic 100–133; BP diastolic 55–73; PULSE 78–111; RESP 15–20; TEMP 36.6–37.2; O2SAT 93–99; BMI 34.0
[2021-11-30 00:06] LABS: Reflex Lactic Add Lactic Reflex
[2021-11-30 00:18] LABS: Lactic Acid Follow Up (RFLX 1) 4.1 mmol/L (0.7-2.1)
[2021-11-30 00:26] LABS: Acetone, Serum (Rapid) None Detected (None Detect)
[2021-11-30 00:28] LABS: Anion Gap 20.5 mEq/L (5-15); Blood Urea Nitrogen 11 mg/dl (7-17); Calcium 8.5 mg/dl (8.4-10.2); Carbon Dioxide 19 mmol/L (22.0-30.0); Chloride 101 mmol/L (98-107); Creatinine Clearance Estimated 86 mL/min (50-200); Estimated Glomerular Filt Rate 123 ml/min (>60); GFR (African American) 149 ML/MIN (>60); Glucose 238 mg/dl (74-100); Potassium 4.5 mmoL/L (3.5-5.1); Sodium 136 mmol/L (136-145)
[2021-11-30 01:23] LABS: Reflex Lactic (2 hrs) Add Lactic Reflex
[2021-11-30 01:48] LABS: Lactic Acid Follow up (RFLX 2) 2.8 mmol/L (0.7-2.1)
[2021-11-30 01:53] LABS: POC Glucose,Bedside 261 (70-110)
[2021-11-30 01:53] LABS: POC Glucose,Bedside 230 (70-110)
[2021-11-30 02:37] LABS: POC Glucose,Bedside 215 (70-110)
[2021-11-30 03:45] LABS: Chloride 102 mmol/L (98-107)
[2021-11-30 03:46] LABS: Potassium 3.6 mmoL/L (3.5-5.1); Sodium 137 mmol/L (136-145)
[2021-11-30 03:48] LABS: Acetone, Serum (Rapid) None Detected (None Detect)
[2021-11-30 03:49] LABS: Anion Gap 15.6 mEq/L (5-15); Blood Urea Nitrogen 11 mg/dl (7-17); Calcium 8.8 mg/dl (8.4-10.2); Carbon Dioxide 23 mmol/L (22.0-30.0); Creatinine Clearance Estimated 83 mL/min (50-200); Estimated Glomerular Filt Rate 100 ml/min (>60); GFR (African American) 121 ML/MIN (>60); Glucose 216 mg/dl (74-100)
[2021-11-30 04:12] LABS: POC Glucose,Bedside 211 (70-110)
--- NOTE | 2021-11-30 04:25 | PC.NURSE ---
Spoke with Victor M about new lab results. Continue insulin gtt at this time. Will evaluate after next BMP. Pt is resting in bed. Has slept at intervals since arriving to floor. Has been up to BR x1. Has c/o headache x1. Medicated per mar. Insulin gtt is infusing @ 2 units/hr. NS @ 150 ml/hr. VSS. Call light within reach.
[2021-11-30 06:33] LABS: Lactic Acid 2.7 mmol/L (0.7-2.1)
[2021-11-30 07:11] LABS: POC Glucose,Bedside 141 (70-110)
[2021-11-30 07:11] LABS: POC Glucose,Bedside 153 (70-110)
--- NOTE | 2021-11-30 07:53 | EXP.PHA.CONS ---
Pharmacy Consult Date: 11/30/21 Time: 07:53 Referring provider: DR. PINEDA Reason for Consult:: VANCOMYCIN DOSING Allergies Allergy/AdvReac Type Severity Reaction Status Date / Time chlordiazepoxide Allergy Unknown Verified 12/23/20 10:42 [From LIBRAX (WITH CLIDINIUM)] clidinium Allergy Unknown Verified 12/23/20 10:42 [From LIBRAX (WITH CLIDINIUM)] iodine [IODINE] Allergy Unknown Verified 12/23/20 10:42 Penicillins [PENICILLINS] Allergy Unknown Verified 12/23/20 10:42 Sulfa (Sulfonamide Allergy Unknown Verified 12/23/20 10:42 Antibiotics) [SULFA (SULFONAMIDE ANTIBIOTICS)] morphine Allergy Verified 12/23/20 10:42 Home Medications Medication Instructions Recorded Confirmed Type glimepiride 4 mg tablet 8 mg PO DAILY DM 01/27/18 11/30/21 History levothyroxine 88 mcg tablet 88 mcg PO DAILY THYROID 01/27/18 11/30/21 History quinapril 20 mg tablet 40 mg PO DAILY HTN 01/27/18 11/30/21 History metformin 1,000 mg tablet 1,000 mg PO BID Diabetes 11/29/21 11/30/21 History semaglutide 14 mg tablet (Rybelsus) 14 mg PO DAILY Diabetes 11/29/21 11/30/21 History New Prescriptions to Start Prescriptions: Height: 1.68 m Weight: 95.935 kg Laboratory Results:: Laboratory Results - last 24 hr 11/29/21 20:50: SARS-CoV-2 (PCR) Not detected, Influenza A Untype (PCR) Not detected, Influenza Type B (PCR) Not detected 11/29/21 21:12: WBC 21.3 H*, RBC 5.45 H, Hgb 16.2, Hct 50.7 H, MCV 93.0, MCH 29.8, MCHC 32.0, RDW 13.8, Plt Count 321, MPV 10.0, Neut % (Auto) 88.1 H, Lymph % (Auto) 6.2 L, [place] % (Auto) 3.9, Eos % (Auto) 1.2, Baso % (Auto) 0.5, Neut # (Auto) 18.8 H, Lymph # (Auto) 1.3, [place] # (Auto) 0.8, Eos # (Auto) 0.3, Baso # (Auto) 0.1, Total Counted 100, Neutrophils % (Manual) 85 H, Lymphocytes % (Manual) 6 L, Monocytes % (Manual) 7, Eosinophils % (Manual) 2, Platelet Estimate Normal, RBC Morphology Normal 11/29/21 21:12: Sodium 139, Potassium 3.6, Chloride 99, Carbon Dioxide 19 L, Anion Gap 24.6 H, BUN 9, Creatinine 0.80, Estimated Creat Clear 86, Estimated GFR 72, Est GFR ( Amer) 87, Glucose 268 H, Calcium 10.1, Total Bilirubin 1.1, AST 62 H, ALT 38, Alkaline Phosphatase 121, Total Protein 8.0, Albumin 4.6, Globulin 3.4 H, Albumin/Globulin Ratio 1.4, Amylase 51, Lipase 179 11/29/21 21:12: Lactate 7.6 H 11/29/21 21:12: Acetone Level Small 11/29/21 22:00: Urine Color Yellow, Urine Appearance Cloudy, Urine pH 5.5, Ur Specific [place] >= 1.030, Urine Protein 3+, Urine Glucose (UA) Negative, Urine Ketones 1+, Urine Blood Trace-i, Urine Nitrate Negative, Urine Bilirubin 2+ A, Urine Urobilinogen 0.2, Ur Leukocyte Esterase Negative, Urine RBC 3-5, Urine WBC 3-5, Ur Squamous Epith Cells 20-50, Amorphous Sediment 1+, Urine Bacteria 4+ 11/29/21 23:55: Sodium 136, Potassium 4.5 D, Chloride 101, Carbon Dioxide 19 L, Anion Gap 20.5 H, BUN 11, Creatinine 0.50 L D, Estimated Creat Clear 86, Estimated GFR 123, Est GFR ( Amer) 149 D, Glucose 238 H, Calcium 8.5, Acetone Level None detected 11/30/21 00:00: Lactate 4.1 H 11/30/21 00:24: POC Glucose 230 H 11/30/21 01:30: Lactate 2.8 H 11/30/21 01:45: POC Glucose 261 H 11/30/21 02:27: POC Glucose 215 H 11/30/21 03:15: Sodium 137, Potassium 3.6, Chloride 102, Carbon Dioxide 23, Anion Gap 15.6 H, BUN 11, Creatinine 0.60, Estimated Creat Clear 83, Estimated GFR 100, Est GFR ( Amer) 121, Glucose 216 H, Calcium 8.8 11/30/21 03:15: Acetone Level None detected 11/30/21 03:59: POC Glucose 211 H 11/30/21 05:49: POC Glucose 141 H 11/30/21 05:57: Lactate 2.7 H 11/30/21 07:03: POC Glucose 153 H 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: 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 (Updated 11/30/21 @ 01:36 by Marine Yusuf RN) Cholelithiases Dermatitis Dermatitis Dermatitis Endometrial cancer GERD (gastroesophageal reflux disease) Hypertension Hypothyroidism UTI (urinary tract infection) Assessment and Plan Assessment and plan all Dx Assessment and Plan for all problems:: Pharmacokinetic dosing service
[2021-11-30 08:28] LABS: Chloride 105 mmol/L (98-107); Potassium 3.6 mmoL/L (3.5-5.1); Sodium 139 mmol/L (136-145)
[2021-11-30 08:31] LABS: Anion Gap 12.6 mEq/L (5-15); Blood Urea Nitrogen 11 mg/dl (7-17); Calcium 8.6 mg/dl (8.4-10.2); Carbon Dioxide 25 mmol/L (22.0-30.0); Creatinine Clearance Estimated 83 mL/min (50-200); Estimated Glomerular Filt Rate 123 ml/min (>60); GFR (African American) 149 ML/MIN (>60); Glucose 160 mg/dl (74-100)
[2021-11-30 09:37] LABS: Lipase 58 U/L (23-300)
[2021-11-30 09:48] LABS: Hemoglobin A1C 7.7 % (4.0-6.0)
[2021-11-30 11:17] LABS: POC Glucose,Bedside 208 (70-110)
--- NOTE | 2021-11-30 12:22 | EXP.ACUTE.PN ---
Subjective *Date: 11/30/21 *Time: 12:22 Interval history: Complains of mild discomfort and nausea. Presented with gastroenteritis symptoms for 24 to 36 hours. This morning denies any more emesis. No bowel movement since admission. Blood pressure within a normal range on exam. Her anion gap is closed. Has been taking her diabetes meds fairly regularly per her report. Is somewhat hungry and would like to try p.o. intake. Denies shortness of breath, chest pain, headache, confusion. Medical Exam Vital signs and Labs for Last 24 Hours: Vital Signs Temp Pulse Pulse Resp BP BP Pulse Ox 11/30/21 08:00 99 11/30/21 06:00 88 16 100/58 L 94 L 11/30/21 04:00 98.9 F 101 H 15 107/62 L 95 11/30/21 03:00 101 H 15 103/57 L 96 11/30/21 00:30 102 H 16 113/58 L 93 L 11/30/21 00:00 97.9 F 111 H 16 133/68 97 11/29/21 23:47 98 F 98 H 18 131/60 11/29/21 23:08 120 H 130/59 L 95 11/29/21 20:50 99.3 F 138 H 22 125/51 L 99 Intake and Output 11/29/21 11/30/21 11/30/21 23:59 07:59 15:59 Intake Total 536 / 536 Output Total 300 / 300 0 / 300 Balance 236 / 236 0 / 236 Intake: Intake, Total IV Amount 536 / 536 0.9 % Sodium Chloride 1,000 ml 244 / 244 @ 150 mls/hr IV .Q6H40M [facility] Rx# :[id number] Dextrose 5 % and 0.9 % NaCl 1, 75 / 75 000 ml @ 75 mls/hr IV .[id number] NIC[facility] Rx#:[id number] Insulin Regular, Human 100 unit 17 / 17 In 0.9 % Sodium Chloride 100 ml @ 2 UNITS/HR 2.02 mls/hr IV .Q25H [facility] Rx#:[id number] Levofloxacin/D5w 500 mg In 100 100 / 100 ml @ 100 mls/hr IV Q24H [facility] Rx# :[id number] Metronidaz/Sod Chl 500 mg In 100 / 100 100 ml @ 100 mls/hr IV Q6H NICOL Rx#:[id number] Output: Output, Urine Amount 300 / 300 0 / 300 Other: Number of Unmeasured Voids 1 Weight 95.935 kg 95.935 kg Patient Weight 11/30/21 23:59 Weight 95.935 kg Laboratory Results - last 24 hr 11/29/21 20:50: SARS-CoV-2 (PCR) Not detected, Influenza A Untype (PCR) Not detected, Influenza Type B (PCR) Not detected 11/29/21 21:12: WBC 21.3 H*, RBC 5.45 H, Hgb 16.2, Hct 50.7 H, MCV 93.0, MCH 29.8, MCHC 32.0, RDW 13.8, Plt Count 321, MPV 10.0, Neut % (Auto) 88.1 H, Lymph % (Auto) 6.2 L, [place] % (Auto) 3.9, Eos % (Auto) 1.2, Baso % (Auto) 0.5, Neut # (Auto) 18.8 H, Lymph # (Auto) 1.3, [place] # (Auto) 0.8, Eos # (Auto) 0.3, Baso # (Auto) 0.1, Total Counted 100, Neutrophils % (Manual) 85 H, Lymphocytes % (Manual) 6 L, Monocytes % (Manual) 7, Eosinophils % (Manual) 2, Platelet Estimate Normal, RBC Morphology Normal 11/29/21 21:12: Sodium 139, Potassium 3.6, Chloride 99, Carbon Dioxide 19 L, Anion Gap 24.6 H, BUN 9, Creatinine 0.80, Estimated Creat Clear 86, Estimated GFR 72, Est GFR ( Amer) 87, Glucose 268 H, Calcium 10.1, Total Bilirubin 1.1, AST 62 H, ALT 38, Alkaline Phosphatase 121, Total Protein 8.0, Albumin 4.6, Globulin 3.4 H, Albumin/Globulin Ratio 1.4, Amylase 51, Lipase 179 11/29/21 21:12: Lactate 7.6 H 11/29/21 21:12: Acetone Level Small 11/29/21 22:00: Urine Color Yellow, Urine Appearance Cloudy, Urine pH 5.5, Ur Specific [place] >= 1.030, Urine Protein 3+, Urine Glucose (UA) Negative, Urine Ketones 1+, Urine Blood Trace-i, Urine Nitrate Negative, Urine Bilirubin 2+ A, Urine Urobilinogen 0.2, Ur Leukocyte Esterase Negative, Urine RBC 3-5, Urine WBC 3-5, Ur Squamous Epith Cells 20-50, Amorphous Sediment 1+, Urine Bacteria 4+ 11/29/21 23:55: Sodium 136, Potassium 4.5 D, Chloride 101, Carbon Dioxide 19 L, Anion Gap 20.5 H, BUN 11, Creatinine 0.50 L D, Estimated Creat Clear 86, Estimated GFR 123, Est GFR ( Amer) 149 D, Glucose 238 H, Calcium 8.5, Acetone Level None detected 11/30/21 00:00: Lactate 4.1 H 11/30/21 00:24: POC Glucose 230 H 11/30/21 01:30: Lactate 2.8 H 11/30/21 01:45: POC Glucose 261 H 11/30/21 02:27: POC Glucose 215 H 11/30/21 03:15: Sodium 137, Potassium 3.6, Chloride 1
[2021-11-30 15:53] LABS: Basophils % 0.4 % (0.1-2.0); Eosinophils # 0.2 K/mm3 (0.0-0.4); Eosinophils % 2.3 % (0.1-12.0); Hematocrit 35.5 % (37.0-47.0); Lymphocytes # 1.6 K/mm3 (0.7-4.5); Lymphocytes % 23.6 % (10-50); Mean Corpuscular HGB Conc 33.2 g/dL (31.8-35.4); Mean Corpuscular Volume 90.2 fl (81-99); Mean Platelet Volume 10.7 fl (7.4-10.4); Monocytes # 0.4 K/mm3 (0.1-1.0); Monocytes % 6.1 % (1.7-9.3); Neutrophils # 4.6 K/mm3 (1.8-7.8); Neutrophils % 67.6 % (37.0-80.0); Platelet Count 149 K/mm3 (142-424); Red Blood Count 3.93 M/mm3 (4.20-5.40); White Blood Count 6.9 K/mm3 (4.8-10.8)
[2021-11-30 15:56] LABS: Hemoglobin 11.8 g/dL (12.2-16.2)
[2021-11-30 16:27] LABS: POC Glucose,Bedside 170 (70-110)
--- NOTE | 2021-11-30 16:55 | PC.NURSE ---
Patient weaned from insulin drip this shift, transitioned to sliding scale insulin, alert and oriented x4, perrla, HR reg, lungs cta, on RA, voids per BR, no BM this shift, denies any cp or soa, reported headache, treated with tylenol per emar with good results, vss, bed in lowest position with call light in reach.
[2021-11-30 20:43] LABS: POC Glucose,Bedside 257 (70-110)
[2021-12-01] VITALS: BP 119/65; PULSE 80; PULSE 82; RESP 16; TEMP 36.6; O2SAT 97
[2021-12-01 04:00] VITALS: BP 120/69; PULSE 80; RESP 16; TEMP 36.7; O2SAT 97
--- NOTE | 2021-12-01 04:47 | PC.NURSE ---
Pt has c/o some discomfort to abdomen this shift. Has had 2 loose stools. Specimen not obtained due to contamination with urine. Pt advised to notify staff when she has another BM. Pt has ambulated to BR without difficulty. VSS. Call light within reach.
[2021-12-01 05:00] VITALS: BMI 34.0
[2021-12-01 06:02] LABS: POC Glucose,Bedside 202 (70-110)
[2021-12-01 06:23] LABS: Adenovirus F 40/41, stool Not Detected (NotDetected); Astrovirus Not Detected (NotDetected); Campylobacter Not Detected (NotDetected); Clostridium Difficile A/B, PCR Not Detected (NotDetected); Cryptosporidium Not Detected (NotDetected); Cyclospora Cayetanesis Not Detected (NotDetected); Entamoeba histolytica Not Detected (NotDetected); Enteroaggregative E coli Not Detected (NotDetected); Enteropathogenic E coli Not Detected (NotDetected); Enterotoxigenic E coli Not Detected (NotDetected); Giardia lamblia Not Detected (NotDetected); Norovirus Not Detected (NotDetected); Plesimonas Shigalloides, PCR Not Detected (NotDetected); Rotavirus A Not Detected (NotDetected); Salmonella, PCR Not Detected (NotDetected); Sapovirus Not Detected (NotDetected); Shiga-like toxin E coli Not Detected (NotDetected); Shigella Enterovasive E coli Not Detected (NotDetected); Vibrio Cholerae Not Detected (NotDetected); Vibrio, PCR Not Detected (NotDetected); Yersinia Entercolitica, PCR Not Detected (NotDetected)
[2021-12-01 07:10] LABS: Chloride 107 mmol/L (98-107); Potassium 3.7 mmoL/L (3.5-5.1); Sodium 142 mmol/L (136-145)
[2021-12-01 07:13] LABS: Anion Gap 11.7 mEq/L (5-15); Blood Urea Nitrogen 6 mg/dl (7-17); Carbon Dioxide 27 mmol/L (22.0-30.0); Creatinine Clearance Estimated 83 mL/min (50-200); Estimated Glomerular Filt Rate 123 ml/min (>60); GFR (African American) 149 ML/MIN (>60)
[2021-12-01 07:14] LABS: Calcium 8.7 mg/dl (8.4-10.2); Glucose 195 mg/dl (74-100)
[2021-12-01 08:00] VITALS: BP 124/78; PULSE 88; RESP 16; TEMP 36.7; O2SAT 93; O2SAT 97
--- NOTE | 2021-12-01 08:34 | EXP.DC.SUM ---
General Admission date:: 11/30/21 HPI HPI HPI: Ms. Ayala is a 66-year-old female with a past medical history that is positive for Diabetes Mellitus, Hypothyroidism and HTN. She presents to [facility] with acute onset of nausea, vomiting and diarrhea associated with fevers body aches and chills that she starts began this afternoon. Work-up in the ER is concerning for DKA and Sepsis. The patient has an elevated WBC at 21.3 and urine is showing 4 plus bacteria with lactic acid level of 7.6. Also Co2 is 19 and anion gap is 24.6 with small Acetone. The patient will be admitted with initial impression: DKA and Sepsis. The patient will be transferred from the ER to the ICU. She will be placed initially on DKA protocol, it is mild, it will be monitored closely as gap closes and transition her from iv to sub q insulin. She will be placed on broad spectrum antibiotics while we await cultures. The plan of care was discussed with the patient and her mother in the ER prior to her admission. Both verbalized understanding and agreement with the plan of care. Hospital Course Hospital Course Hospital Course: 66 year old female with past medical history of Diabetes, Hypothyroidism and Hypertension who presented with acute onset of nausea, vomiting, diarrhea, fevers, chills and body aches.? Work-up concerning for Sepsis and mild DKA.? Cultures obtained on admission. Urine positive for gram-negative rods. Stool sample negative for pathogens. Diarrhea improved but not resolved during admission. Problems addressed as follows: Sepsis -Blood cultures remain negative at 48 hours. Initially treated with vancomycin, Levaquin, Flagyl. De-escalated antibiotics to Levaquin orally to complete treatment for urinary tract infection. Patient's symptoms defervesced within 24 hours of admission. Stable for discharge home with lose follow-up with her PCP. DKA, resolved -Gap closed quickly with insulin drip. Transition to sliding scale insulin for remainder of hospitalization. Will transition to home diabetic regimen at discharge. A1c 7.7 on admission, appears to be fairly well controlled and compliant with her regimen. Hypothyroidism: continued patient's home regime Essential hypertension: held home regimen in light of patient's blood pressure being very well controlled.? Held at discharge, reevaluate in outpatient setting with follow-up with PCP. Of note, CT of abdomen also identified Mild hepatosplenomegaly with diffuse fatty infiltration of liver. Nodular hepatic surface contours suggest parenchymal liver disease. This needs follow-up/work-up in the outpatient setting. Deferring to PCP. Medically stable for discharge home Exam Data for Last 24 hours Vital signs and Labs for Last 24 Hours: Temp Pulse Resp BP Pulse Ox 98.1 F 80 16 120/69 97 12/01/21 04:00 12/01/21 04:00 12/01/21 04:00 12/01/21 04:00 12/01/21 04:00 Laboratory Results - last 24 hr 11/29/21 06:05: Stl Aeromonas (PCR) Not detected, Stl C. cayetanensis PCR Not detected, Stool Rotavirus (PCR) Not detected, Stl Adenov F 40/41 PCR Not detected, Stool Astrovirus (PCR) Not detected, Stool Campylobacter PCR Not detected, Stl C.difficile Tox PCR Not detected, Stool Cryptosporidium PCR Not detected, Stl E.coli Shiga Tox PCR Not detected, Stool E coli O157 PCR Not detected, Stl Enterotoxigenic E PCR Not detected, Stool EPEC (PCR) Not detected, Stool EAEC (PCR) Not detected, Stl E. histolytica PCR Not detected, Stool Giardia Lamblia PCR Not detected, Stool Salmonella PCR Not detected, Stool Sapovirus (PCR) Not detected, Stl P. shigelloides PCR Not detected, Stl Shigella/EIEC PCR Not detected, St Y.enterocolitica PCR Not detected, Stool Vibrio (PCR) Not detected, Stl Vibrio cholerae PCR Not detected, Stl Norovirus GI/GII PCR Not detected 11/29/21 22:00: Urine Color Yellow, Urine Appearance Cloudy, Urine pH 5.5, Ur Specific [place] >= 1.030, Urine Protein 3+, Urine Glucose
[2021-12-01 11:55] LABS: POC Glucose,Bedside 235 (70-110)
[2021-12-01 12:00] VITALS: BP 136/75; PULSE 80; RESP 16; TEMP 36.8; O2SAT 98
[2021-12-01 23:42] LABS: Peripheral Smear Review Scanned Result
--- NOTE | 2021-12-02 13:28 | CARE MANAGER ---
Spoke with patient for post-discharge phone interview, she states that she is dong well and has no issues at this time.
== END 2021-12-01 13:05 | disposition home or self-care (01) | DRG 637 ==
LOC: ER 23:19 → 2ND 23:34
PROVIDERS: Nurse Practitioner Family; Admitting Provider Internal Medicine Adolescent Medicine; Emergency Provider Emergency Medicine; PCP Family Medicine; Visit Provider Internal Medicine Adolescent Medicine
DX: E11.10 Type 2 diabetes mellitus with ketoacidosis without coma (principal); A41.9 Sepsis, unspecified organism; N39.0 Urinary tract infection, site not specified; I10 Essential (primary) hypertension; E03.9 Hypothyroidism, unspecified; K21.9 Gastro-esophageal reflux disease without esophagitis; Z85.42 Personal history of malignant neoplasm of other parts of uterus; Z79.84 Long term (current) use of oral hypoglycemic drugs
CPT/HCPCS: 36415; 74177; 80048; 80053; 81001; 82009; 82150; 82962; 83036; 83605; 83690; 85007; 85025; 87040; 87086; 87088; 87186; 87507; 99285; C9803; J1956; J2405; Q9967; U0003; U0005

== ENCOUNTER → 2021-12-06 16:39 | Outpatient (CLI) | payer BC, MEDICARE, SELFPAY ==
[2021-12-06 18:21] LABS: Alanine Aminotransferase 45 U/L (12-78); Albumin Level 4.1 g/dl (3.5-5.0); Albumin/Globulin Ratio 1.3 (1.1-1.8); Alkaline Phosphatase 109 U/L (38-126); Anion Gap 19.1 mEq/L (5-15); Aspartate Amino Transferase 86 U/L (14-36); Bilirubin,Total 0.7 mg/dl (0.2-1.3); Blood Urea Nitrogen 6 mg/dl (7-17); Carbon Dioxide 24 mmol/L (22.0-30.0); Chloride 100 mmol/L (98-107); Estimated Glomerular Filt Rate 123 ml/min (>60); GFR (African American) 149 ML/MIN (>60); Globulin 3.1 g/dL (1.3-3.2); Glucose 99 mg/dl (74-100); Potassium 4.1 mmoL/L (3.5-5.1); Sodium 139 mmol/L (136-145); Total Protein,Serum 7.2 g/dl (6.3-8.2)
[2021-12-06 18:45] LABS: Basophils # 0.1 K/mm3 (0-0.2); Basophils % 0.7 % (0.1-2.0); Eosinophils # 0.2 K/mm3 (0.0-0.4); Eosinophils % 2.7 % (0.1-12.0); Hematocrit 45.7 % (37.0-47.0); Hemoglobin 14.6 g/dL (12.2-16.2); Lymphocytes # 2.6 K/mm3 (0.7-4.5); Lymphocytes % 28.2 % (10-50); Mean Corpuscular HGB Conc 31.9 g/dL (31.8-35.4); Mean Corpuscular Hemoglobin 28.8 pg (27.0-31.2); Mean Corpuscular Volume 90.3 fl (81-99); Mean Platelet Volume 9.6 fl (7.4-10.4); Monocytes # 0.5 K/mm3 (0.1-1.0); Monocytes % 5.8 % (1.7-9.3); Neutrophils # 5.7 K/mm3 (1.8-7.8); Neutrophils % 62.6 % (37.0-80.0); Platelet Count 202 K/mm3 (142-424); Red Blood Count 5.06 M/mm3 (4.20-5.40); Red Cell Distribution Width 13.8 % (11.5-17.5); White Blood Count 9.1 K/mm3 (4.8-10.8)
== END ==
PROVIDERS: PCP Family Medicine; Visit Provider Family Medicine
DX: N39.0 Urinary tract infection, site not specified (principal); R11.2 Nausea with vomiting, unspecified; B96.89 Other specified bacterial agents as the cause of diseases classified elsewhere; B96.29 Other Escherichia coli [E. coli] as the cause of diseases classified elsewhere
CPT/HCPCS: 36415; 80053; 85025; 87086; 87088; 87186

== ENCOUNTER 2021-12-07 16:46 | Observation (INO) | payer BC, MEDICARE, SELFPAY ==
--- NOTE | 2021-12-07 16:44 | ECG_ITS ---
APPROVED REPORT Exam: Resting ECG HR:130 bpm ECG Measurements Heart Rate 130 AXES WI 146 P 69 QRSd 90 QRS -63 QT 308 T 53 QTc 385 Conclusion SINUS TACHYCARDIA LEFT ANTERIOR FASCICULAR BLOCK LAD Late r wave progression ABNORMAL ECG UNCONFIRMED REPORT Electronically signed by : Henry Macias MD 12/08/2021 21:07:42
[2021-12-07 16:47] VITALS: BP 171/84; PULSE 132; RESP 20; TEMP 36.7; O2SAT 99; BMI 34.9
--- NOTE | 2021-12-07 16:53 | PC.NURSE ---
ED MD AT BEDSIDE FOR EVALUATION
--- NOTE | 2021-12-07 16:54 | XR_ITS ---
PROCEDURE INFORMATION: Exam: XR Chest Exam date and time: 12/07/2021 5:09 PM Age: 66 years old Clinical indication: Other: Palpitations TECHNIQUE: Imaging protocol: Radiologic exam of the chest. Views: 1 view. Portable AP exam 5:14 p.m. COMPARISON: CR XR CHEST PORTABLE 08/01/2021 2:55 PM FINDINGS: Tubes, catheters and devices: Overlying cardiac care nurse electrodes. Lungs: Mild hypoventilation. No acute findings. No consolidation. Pulmonary vessels do not appear congested. Pleural spaces: Unremarkable. No significant pleural effusion. No pneumothorax. Heart/Mediastinum: The cardiac silhouette is normal. Bones/joints: There are spinal degenerative changes, with multilevel disc narrrowing and spondylosis. Arthritis of acromioclavicular joints. IMPRESSION: No acute findings.
--- NOTE | 2021-12-07 16:55 | HMH.EDGENADL ---
Discharge Plan Disposition Patient Disposition: Admitted as Observation Condition: Fair Prescriptions Prescriptions: No Action metformin 1,000 mg tablet 1,000 mg PO BID Label Comments: TAKE 1 TABLET BY MOUTH TWICE DAILY WITH A MEAL Rybelsus 14 mg tablet 14 mg PO DAILYDM Label Comments: TAKE 1 TABLET BY MOUTH EVERY DAY 30 MINUTES BEFORE FIRST FOOD OR BEVERAGE OR MEDICINE OF THE DAY levofloxacin 500 mg Tablet 500 mg PO DAILY 3 Days Qty: 3 0RF levothyroxine 88 MCG tablet 88 mcg PO DAILYDM glimepiride 4 MG tablet 8 mg PO DAILYDM quinapril 20 MG tablet 40 mg PO DAILY Hold Instructions: pending follow-up with PCP Referrals Follow up/Referrals: Provider,Referral, [Primary Care Provider] - See instructions Clinical Impressions Clinical Impression: Dehydration, Persistent vomiting Discharge ED Provider: Deja Diaz Adult HPI General Chief complaint: Chest Pain Stated complaint: chest pain Time Seen by Provider: 12/07/21 16:50 Mode of Arrival: Ambulatory Limitations: No Limitations Description of Symptoms (Recalled from ER Triage Doc. by RN): PT WITH C/O CHEST PAIN THAT BEGAN AFTER VOMITING THAT BEGAN ABOUT 30 MINUTES AGO. PT C/O OF SHORTNESS OF BREATH AND INCREASED HR. RECENTLY DISCHARGED LAST SUNDAY History of Present Illness HPI narrative: 66-year-old female presenting to the emergency department with palpitations, chest pain, nausea, diarrhea. Symptoms started this afternoon. When she got home from work she felt generally unwell. Had nausea and 1 episode of emesis. Then had an episode of diarrhea. Now she has chest pain that is located across the front of her chest. Feels like her heart is beating fast. Feels dehydrated. She recently was admitted to our hospital and treated for sepsis. Urinary source. Says she felt well this morning. No fevers, chills. She was able to eat today, fruit, donuts. No medications prior to arrival. Related Data Home Medications Medication Instructions Recorded Confirmed glimepiride 4 mg tablet 8 mg PO DAILYDM Diabetes 01/27/18 11/30/21 levothyroxine 88 mcg tablet 88 mcg PO DAILYDM hypothyroidism 01/27/18 11/30/21 quinapril 20 mg tablet 40 mg PO DAILY High blood pressure 01/27/18 11/30/21 metformin 1,000 mg tablet 1,000 mg PO BID Diabetes 11/29/21 11/30/21 semaglutide 14 mg tablet (Rybelsus) 14 mg PO DAILYDM Diabetes 11/29/21 11/30/21 Previous Rx's Medication Instructions Recorded levofloxacin 500 mg tablet 500 mg PO DAILY 3 days #3 tabs 12/01/21 Allergies Allergy/AdvReac Type Severity Reaction Status Date / Time chlordiazepoxide Allergy Unknown Verified 12/23/20 10:42 [From LIBRAX (WITH CLIDINIUM)] clidinium Allergy Unknown Verified 12/23/20 10:42 [From LIBRAX (WITH CLIDINIUM)] iodine [IODINE] Allergy Unknown Verified 12/23/20 10:42 Penicillins [PENICILLINS] Allergy Unknown Verified 12/23/20 10:42 Sulfa (Sulfonamide Allergy Unknown Verified 12/23/20 10:42 Antibiotics) [SULFA (SULFONAMIDE ANTIBIOTICS)] morphine Allergy Verified 12/23/20 10:42 [facility] 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 (Updated 12/07/21 @ 19:39 by Deja Diaz DO) Cholelithiases Dermatitis Dermatitis Dermatitis Endometrial cancer GERD (gastroesophageal reflux disease) Hypertension Hypothyroidism UTI (urinary tract infection) Family History Other Breast cancer Endometrial cancer Family history of GERD Hypertension 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 (Updated 12/07/21 @ 18:[address] RN) Smoking Status: Never smoker alcohol intake: never substance use type: denies use current occupational status: employed and other Travel in the last 8 weeks: None household members: family housing: house ROS Obtained: Yes All systems reviewed & no additional complaints except as documented Constitutional Constitutional: Denies chills,
--- NOTE | 2021-12-07 16:59 | PC.NURSE ---
XR AT BEDSIDE
[2021-12-07 17:24] LABS: Alanine Aminotransferase 54 U/L (12-78); Albumin Level 4.4 g/dl (3.5-5.0); Albumin/Globulin Ratio 1.3 (1.1-1.8); Alkaline Phosphatase 128 U/L (38-126); Anion Gap 20.6 mEq/L (5-15); Aspartate Amino Transferase 92 U/L (14-36); Bilirubin,Total 0.7 mg/dl (0.2-1.3); Blood Urea Nitrogen 6 mg/dl (7-17); Carbon Dioxide 22 mmol/L (22.0-30.0); Chloride 99 mmol/L (98-107); Creatinine Clearance Estimated 82 mL/min (50-200); Estimated Glomerular Filt Rate 123 ml/min (>60); GFR (African American) 149 ML/MIN (>60); Globulin 3.5 g/dL (1.3-3.2); Glucose 122 mg/dl (74-100); Potassium 3.6 mmoL/L (3.5-5.1); Sodium 138 mmol/L (136-145); Total Protein,Serum 7.9 g/dl (6.3-8.2)
[2021-12-07 17:28] LABS: Basophils # 0.1 K/mm3 (0-0.2); Basophils % 0.5 % (0.1-2.0); Eosinophils # 0.3 K/mm3 (0.0-0.4); Eosinophils % 1.5 % (0.1-12.0); Hematocrit 50.5 % (37.0-47.0); Lymphocytes # 3.8 K/mm3 (0.7-4.5); Lymphocytes % 17.5 % (10-50); Mean Corpuscular HGB Conc 32.5 g/dL (31.8-35.4); Mean Corpuscular Hemoglobin 29.8 pg (27.0-31.2); Mean Corpuscular Volume 91.7 fl (81-99); Mean Platelet Volume 9.7 fl (7.4-10.4); Monocytes # 0.7 K/mm3 (0.1-1.0); Monocytes % 3.3 % (1.7-9.3); Neutrophils # 16.9 K/mm3 (1.8-7.8); Neutrophils % 77.1 % (37.0-80.0); Platelet Count 292 K/mm3 (142-424); Red Cell Distribution Width 13.9 % (11.5-17.5); White Blood Count 21.8 K/mm3 (4.8-10.8)
[2021-12-07 17:30] LABS: D-Dimer 0.67 ug/mL (0.0-0.5); Hemoglobin 16.4 g/dL (12.2-16.2); MANUAL DIFFERENTIAL MANUAL DIFFERENTIAL (MANUAL DIFF)
[2021-12-07 17:46] LABS: Troponin I < 0.01 ng/ml (0.00-0.034)
[2021-12-07 17:50] LABS: VBG Base Excess -4.8 mmol/L (-2.4-2.3); VBG HCO3 21.5 mmol/L (23-30); VBG Oxygen Saturation 69.3 % (50-70); VBG PCO2 43.8 mmol/L (35-51); VBG PH 7.31 mmol/L (7.31-7.41); VBG PO2 37.6 mmol/L (28-40); VBG Total CO2 22.8 mmol/L (23-27)
[2021-12-07 17:56] LABS: Eosinophils % 2 % (0-3); Lymphocytes % 21 % (10-50); Monocytes % 3 % (2-9); Neutrophils % 73 % (42-76); Total Cells Counted 100
[2021-12-07 17:57] LABS: Platelet Estimate Normal; RBC Morphology Normal; Thyroid Stimulating Hormone 3.41 uIU/mL (0.465-4.68)
--- NOTE | 2021-12-07 18:00 | PC.NURSE ---
ROUNDED ON PT AT THIS TIME, C/O NAUSEA. UNABLE TO PROVIDE UA AT THIS TIME
--- NOTE | 2021-12-07 18:22 | PC.NURSE ---
PT MEDICATED PER EMAR, WARM BLANKET PROVIDED. UNABLE TO VOID. CALL LIGHT WITHIN REACH. WILL CALL FOR ASSISTANCE TO PROVIDE UA
[2021-12-07 19:02] VITALS: BP 165/71; PULSE 125; RESP 19; O2SAT 97
--- NOTE | 2021-12-07 19:03 | PC.NURSE ---
ED MD AT BEDSIDE FOR REEVALUATION
[2021-12-07 19:24] LABS: Appearance,Urine SL CLOUDY (Clear); Blood, Urine Negative (Negative); Color,Urine YELLOW (Yellow); Glucose,Urine (UA) Negative (Negative); Ketones,Urine 1+ (Negative); Leukocyte Esterase,Urine Negative (Negative); Microscopic, Urine URINE MICROSCOPIC (MICROSCOPIC); Nitrate,Urine Negative (Negative); Protein,Urine 3+ (Negative); Specific Gravity, Urine >= 1.030 (1.005-1.030); Urobilinogen,Urine 0.2 EU/dl (0.2)
[2021-12-07 19:31] LABS: Bilirubin,Urine 1+ (Negative)
[2021-12-07 19:59] LABS: Amorphous Sediment,Urine Trace /lpf; Bacteria,Urine Trace /lpf; Calcium Oxalate Crystals,Urine 2+ /lpf
[2021-12-07 20:18] LABS: Procalcitonin 0.236 ng/mL (0.0-2.0)
[2021-12-07 20:21] LABS: Coronavirus 19, PCR Not Detected (NotDetected); Influenza A, PCR Not Detected (NotDetected); Influenza B, PCR Not Detected (NotDetected)
--- NOTE | 2021-12-07 20:25 | EXP.HP ---
History of Present Illness *Admission Date: 12/07/21 *Reason for visit:: SIRS, Dehydration *History of present illness: Ms. Ayala is a 66-year-old female with a past medical history that is positive for Diabetes Mellitus, Hypothyroidism and Hypertension. She presents to [facility] through the ER, today, 12/07/2021 secondary to feeling ill associated with nausea and vomiting that started approximately two days prior to this admission. The patient was seen in the ER prior to admission. It is important to note that the patient was just discharged from this facility following an acute hospitalization from 11/29-12/01/21 where she was treated for Sepsis due to UTI from gram negative rods. She was treated with a seven day course of Levaquin. WBC normalized prior to discharge. The patient reports that she took her antibiotic as prescribed. She reports that two days prior to presentation that she started feeling ill and fatigued. She reports that she missed work two days ago and went to work the last two days (12/06 and 12/07). She reports that today following work that she continued to feel ill and started having constant vomiting and diarrhea so she came into the ER again for evaluation. In the ER the patient was noted to be Tachycardic with a HR of 125, WBC was elevated at 21.8. Anion Gap was 20.6, Co2 was within normal range at 22. Urinalysis was negative for leukocytes and showed trace bacteria. The patient will be admitted with initial impression: SIRS and Dehydration. Cultures will be obtained again to include stool, urine and blood. A KUB will be ordered. The patient will be given fluids. The plan of care was discussed with the patient in length and detail at bedside. The patient verbalized understanding and agreement with the plan of care. [facility] 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 (Updated 12/07/21 @ 23:29 by Suzanne Rodriguez RN) Ankle fracture, right Bladder cancer Cholelithiases Dermatitis Dermatitis Dermatitis Diabetes mellitus, type 2 Endometrial cancer GERD (gastroesophageal reflux disease) Hypertension Hypothyroidism Kidney stones Left wrist fracture UTI (urinary tract infection) Surgical History (Updated 12/07/21 @ 23:27 by Suzanne Rodriguez RN) H/O bilateral oophorectomy H/O total hysterectomy History of cholecystectomy S/P hernia surgery Family History Other Breast cancer Endometrial cancer Family history of GERD Hypertension 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 (Updated 12/07/21 @ 23:29 by Suzanne Rodriguez RN) Smoking Status: Never smoker alcohol intake: never substance use type: denies use current occupational status: employed and other Travel in the last 8 weeks: None household members: family housing: house lives independently: No education level: high school service: No pets and animals: No Review of Systems Review of Systems Review of systems:: pertinent systems reviewed and negative unless documented below Constitutional Constitutional: Reports fatigue, Reports lethargy and Reports malaise Eyes Eyes: Reports system reviewed and no additional complaints, except as documented ENT Ears, Nose, Mouth, and Throat: Reports system reviewed and no additional complaints, except as documented *Cardiovascular Cardiovascular: Reports system reviewed and no additional complaints, except as documented *Respiratory Respiratory: Reports system reviewed and no additional complaints, except as documented *Gastrointestinal Gastrointestinal: Reports bloating, Reports loose stools, Reports nausea and Reports vomiting *Genitourinary Genitourinary: Reports system reviewed and no additional complaints, except as documented *Musculoskeletal Musculoskeletal: Reports muscle weakness and Reports myalgias Integumentary/Breasts Skin/Breast: Reports system reviewed and no additional complaints, except as documented *Neurologic Neurolog
--- NOTE | 2021-12-07 20:45 | XR_ITS ---
PROCEDURE INFORMATION: Exam: XR Abdomen Exam date and time: 12/07/2021 9:04 PM Age: 66 years old Clinical indication: Nausea and vomiting and other: Diarrhea; Additional info: Nausea, vomiting, diarrhea TECHNIQUE: Imaging protocol: Radiologic exam of the abdomen. Views: Frontal supine view of the abdomen. 1 View. Four images received in order to better visualize the entire abdomen. COMPARISON: CT ABDOMEN PELVIS W CON 11/29/2021 9:55 PM FINDINGS: Tubes, catheters and devices: Overlying satellite project site monitor electrodes. Gastrointestinal tract: Nonobstructive bowel gas pattern. Minimal small intestinal air, mild gaseous distention of the colon; no dilated loops. Intraperitoneal space: Right upper quadrant cholecystectomy clips. Organs: Some tiny rounded calcifications at the left flank up to 4 mm likely corresponding with small renal stones seen on the prior CT of 11/29/2021, and a calcification in the lower left pelvis up to 3 mm which likely corresponds with phlebolith seen on the prior CT. Bones/joints: Spinal degenerative changes, with disc narrowing and spondylosis, lower lumbar facet arthropathy.There is no evidence of acute fracture. IMPRESSION: 1. Nonobstructive bowel gas pattern. 2. Tiny calcifications at the left flank, likely corresponding with left lower pole renal calculi seen on prior CT of 11/29/2021. 3. Additional nonemergency and chronic findings as above.
--- NOTE | 2021-12-07 20:45 | PC.NURSE ---
Bed assignment obtained, admissions notified
[2021-12-07 22:11] VITALS: BP 137/74; PULSE 119; RESP 18; TEMP 36.7; O2SAT 97
[2021-12-07 22:19] LABS: Lactic Acid 3.8 mmol/L (0.7-2.1)
[2021-12-07 22:34] VITALS: BP 113/68; PULSE 121; RESP 16; TEMP 36.8; O2SAT 97; BMI 36.6
--- NOTE | 2021-12-07 22:34 | PC.NURSE ---
PT ARRIVED TO FLOOR VIA WHEELCHAIR AT THIS TIME
[2021-12-07 23:53] LABS: Troponin I < 0.01 ng/ml (0.00-0.034)
[2021-12-08] VITALS: BP 122/59; PULSE 118; PULSE 121; RESP 18; TEMP 37.2; O2SAT 94
[2021-12-08 00:05] LABS: Troponin I < 0.01 ng/ml (0.00-0.034)
[2021-12-08 01:32] LABS: Reflex Lactic Add Lactic Reflex
[2021-12-08 02:09] LABS: Lipase 101 U/L (23-300)
[2021-12-08 02:12] LABS: Lactic Acid Follow Up (RFLX 1) 2.1 mmol/L (0.7-2.1)
[2021-12-08 03:42] LABS: Reflex Lactic (2 hrs) Add Lactic Reflex
[2021-12-08 03:51] VITALS: BP 126/69; PULSE 104; RESP 18; TEMP 36.8; O2SAT 95
[2021-12-08 05:05] LABS: Lactic Acid Follow up (RFLX 2) 2.1 mmol/L (0.7-2.1)
--- NOTE | 2021-12-08 05:21 | PC.NURSE ---
pt is alert and oriented x4, 2+ edema noted to RLE, 1+ to LLE, pt with complaints of nausea and projectile emesis noted x1 upon arrival to floor, phenergan given with relief as prescribed, pt complains of lower abd pain and tenderness, abd large, soft, round with hypoactive bowel sounds noted, states it feels better laying supine, pt states she gets nauseated when lays on either side, v/s reveal tachycardia in which christin winkler [employer] is aware of, no other issues or concerns noted at this time, no acute distress noted
[2021-12-08 05:51] VITALS: BMI 36.0
[2021-12-08 05:54] LABS: POC Glucose,Bedside 116 (70-110)
--- NOTE | 2021-12-08 07:18 | HMH.PHAINT1 ---
Pharmacy Intervention Comments: Home medication reconciliation completed using outpatient pharmacy fill history and recent discharge packet.
[2021-12-08 08:00] VITALS: BP 101/48; PULSE 95; RESP 16; TEMP 36.7; O2SAT 93
[2021-12-08 12:22] LABS: POC Glucose,Bedside 146 (70-110)
--- NOTE | 2021-12-08 14:27 | EXP.PN ---
Subjective *Date: 12/08/21 *Time: 14:33 Interval history: The patient reports no acute events since admission. I am accompanied by multiple members of the MDR team to evaluate the patient. Nursing staff report that she remains afebrile with improved blood pressures and ongoing tachycardia. She is saturating appropriately on room air. Her morning labs identify a creatinine of 0.5 and a white blood cell count of 22,000. Her procalcitonin is negative. Her troponins trended negatively. Her recent Levaquin course has been noted and her urine culture identifies intermediate coverage. CT scan of her abdomen and pelvis x2 identifies ongoing concerns with bilateral kidney stones left greater than right. The patient reports ongoing evaluation with Dr. Edd Sosa for urological needs. Exam Data for Last 24 hours Vital signs and Labs for Last 24 Hours: Temp Pulse Resp BP Pulse Ox 98.0 F 95 H 16 101/48 L 93 L 12/08/21 08:00 12/08/21 08:00 12/08/21 08:00 12/08/21 08:00 12/08/21 08:00 Laboratory Results - last 24 hr 12/07/21 16:50: WBC 21.8 H* D, RBC 5.50 H, Hgb 16.4 H D, Hct 50.5 H, MCV 91.7, MCH 29.8, MCHC 32.5, RDW 13.9, Plt Count 292 D, MPV 9.7, Neut % (Auto) 77.1, Lymph % (Auto) 17.5, [place] % (Auto) 3.3, Eos % (Auto) 1.5, Baso % (Auto) 0.5, Neut # (Auto) 16.9 H, Lymph # (Auto) 3.8, [place] # (Auto) 0.7, Eos # (Auto) 0.3, Baso # (Auto) 0.1, Total Counted 100, Neutrophils % (Manual) 73, Band Neutrophils % 1.0, Lymphocytes % (Manual) 21, Monocytes % (Manual) 3, Eosinophils % (Manual) 2, Platelet Estimate Normal, RBC Morphology Normal 12/07/21 16:50: D-Dimer 0.67 H 12/07/21 16:50: Sodium 138, Potassium 3.6, Chloride 99, Carbon Dioxide 22, Anion Gap 20.6 H, BUN 6 L, Creatinine 0.50 L, Estimated Creat Clear 82, Estimated GFR 123, Est GFR ( Amer) 149, Glucose 122 H D, Calcium 10.0, Total Bilirubin 0.7, AST 92 H, ALT 54, Alkaline Phosphatase 128 H, Troponin I < 0.01, Total Protein 7.9, Albumin 4.4, Globulin 3.5 H, Albumin/Globulin Ratio 1.3, TSH 3.41 12/07/21 16:50: Procalcitonin 0.236 12/07/21 17:40: VBG pH 7.31, VBG pCO2 43.8, VBG pO2 37.6, VBG HCO3 21.5 L, VBG Total CO2 22.8 L, VBG O2 Saturation 69.3, VBG Base Excess -4.8 L 12/07/21 19:15: Urine Color Yellow, Urine Appearance Sl cloudy, Urine pH 6.0, Ur Specific [place] >= 1.030, Urine Protein 3+, Urine Glucose (UA) Negative, Urine Ketones 1+, Urine Blood Negative, Urine Nitrate Negative, Urine Bilirubin 1+ A, Urine Urobilinogen 0.2, Ur Leukocyte Esterase Negative, Urine RBC 3-5, Urine WBC 3-5, Ur Squamous Epith Cells 10-20, Calcium Oxalate Crystal 2+, Amorphous Sediment Trace, Urine Bacteria Trace, Hyaline Casts 5-10 12/07/21 19:55: Troponin I < 0.01 12/07/21 19:55: Lipase 101 12/07/21 20:15: SARS-CoV-2 (PCR) Not detected, Influenza A Untype (PCR) Not detected, Influenza Type B (PCR) Not detected 12/07/21 21:25: Lactate 3.8 H 12/07/21 23:03: Troponin I < 0.01 12/08/21 01:33: Lactate 2.1 12/08/21 04:10: Lactate 2.1 12/08/21 05:43: POC Glucose 116 H 12/08/21 12:11: POC Glucose 146 H I & O for Last 24 hours: Intake & Output 12/05/21 12/06/21 12/07/21 12/08/21 23:59 23:59 23:59 23:59 Intake Total 842 / 842 Output Total 500 / 500 Balance 342 / 342 Weight 99.904 kg 98.146 kg Assessment and Plan *Assessment and plan (1) SIRS (systemic inflammatory response syndrome): Status: Acute Category: Medical Code(s): R65.10 - Systemic inflammatory response syndrome (SIRS) of non-infectious origin without acute organ dysfunction (2) UTI (urinary tract infection): Status: Acute Qualifiers: Hematuria presence: with hematuria Urinary tract infection type: acute cystitis Qualified Code(s): N30.01 - Acute cystitis with hematuria Category: Medical Code(s): N39.0 - Urinary tract infection, site not specified (3) Diabetes: Status: Acute Category: Medical Code(s): E11.9 - Type 2 diabetes mellitus without compli
[2021-12-08 15:06] VITALS: BP 108/56; PULSE 87; RESP 16; TEMP 36.9; O2SAT 94
[2021-12-08 16:43] LABS: POC Glucose,Bedside 145 (70-110)
--- NOTE | 2021-12-08 18:33 | PC.NURSE ---
Pt is alert and oriented x4. She's ambulated to the bathroom with standby assist. Glucose was 146 and 145 at checks. Tylenol administered once for pt report of pain. Relief noted on reassessment. No reports of nausea. +2 edema noted to RLE. Family/friends have been to visit. Bed is locked and in the lowest position, call light is within reach.
[2021-12-08 19:43] VITALS: BP 117/65; PULSE 87; RESP 18; TEMP 36.9; O2SAT 97
[2021-12-08 20:00] VITALS: O2SAT 96
[2021-12-08 21:14] LABS: POC Glucose,Bedside 193 (70-110)
[2021-12-09 04:00] VITALS: BP 127/69; PULSE 79; RESP 17; TEMP 36.8; O2SAT 94
[2021-12-09 05:00] VITALS: BMI 36.6
[2021-12-09 06:25] LABS: POC Glucose,Bedside 142 (70-110)
--- NOTE | 2021-12-09 06:29 | PC.NURSE ---
no acute distress, pt rested well through the night, no issues or concerns, pt denies n/v, no c/o pain noted, no other issues or concerns noted at this time. VSS, fsbs this am 142
[2021-12-09 07:09] LABS: Chloride 109 mmol/L (98-107); Potassium 3.9 mmoL/L (3.5-5.1); Sodium 139 mmol/L (136-145)
[2021-12-09 07:12] LABS: Blood Urea Nitrogen 3 mg/dl (7-17); Creatinine Clearance Estimated 86 mL/min (50-200); Estimated Glomerular Filt Rate 159 ml/min (>60); GFR (African American) 193 ML/MIN (>60)
[2021-12-09 07:13] LABS: Anion Gap 7.9 mEq/L (5-15); Calcium 8.5 mg/dl (8.4-10.2); Carbon Dioxide 26 mmol/L (22.0-30.0); Glucose 160 mg/dl (74-100)
[2021-12-09 08:00] VITALS: BP 122/74; PULSE 87; RESP 20; TEMP 36.7; O2SAT 96
[2021-12-09 08:28] LABS: Basophils % 0.6 % (0.1-2.0); Eosinophils # 0.2 K/mm3 (0.0-0.4); Eosinophils % 4.8 % (0.1-12.0); Hematocrit 38.3 % (37.0-47.0); Hemoglobin 12.6 g/dL (12.2-16.2); Lymphocytes # 1.3 K/mm3 (0.7-4.5); Lymphocytes % 28.3 % (10-50); Mean Corpuscular HGB Conc 32.8 g/dL (31.8-35.4); Mean Corpuscular Hemoglobin 29.9 pg (27.0-31.2); Mean Corpuscular Volume 91.3 fl (81-99); Monocytes # 0.2 K/mm3 (0.1-1.0); Monocytes % 4.9 % (1.7-9.3); Neutrophils # 2.7 K/mm3 (1.8-7.8); Neutrophils % 61.3 % (37.0-80.0); Platelet Count 138 K/mm3 (142-424); Red Cell Distribution Width 13.9 % (11.5-17.5); White Blood Count 4.4 K/mm3 (4.8-10.8)
--- NOTE | 2021-12-09 10:07 | PC.NURSE ---
courtesy tech jerry: pt is sleeping with call light within reach
[2021-12-09 12:03] LABS: POC Glucose,Bedside 158 (70-110)
[2021-12-09 14:15] VITALS: BMI 36.5
[2021-12-09 16:00] VITALS: BP 116/59; PULSE 83; RESP 20; TEMP 36.8; O2SAT 97
--- NOTE | 2021-12-09 16:26 | EXP.PN ---
Subjective *Date: 12/09/21 *Time: 16:26 Interval history: Date of service 12/09/2021 The patient reports that she is feeling better and is sitting up at the side of her bed. I am accompanied by multiple members of the MDR team to evaluate the patient. Nursing staff report that she remains afebrile with stable vital signs and saturating appropriately on room air. She is tolerating her IV antibiotic therapy with no adverse events. Her morning labs have been reviewed and discussed which identified improved leukocytosis. Exam Data for Last 24 hours Vital signs and Labs for Last 24 Hours: Temp Pulse Resp BP Pulse Ox 98.0 F 87 20 122/74 96 12/09/21 08:00 12/09/21 08:00 12/09/21 08:00 12/09/21 08:00 12/09/21 08:00 Laboratory Results - last 24 hr 12/08/21 16:35: POC Glucose 145 H 12/08/21 20:43: POC Glucose 193 H 12/09/21 06:12: POC Glucose 142 H 12/09/21 06:28: Sodium 139, Potassium 3.9, Chloride 109 H, Carbon Dioxide 26, Anion Gap 7.9, BUN 3 L D, Creatinine 0.40 L, Estimated Creat Clear 86, Estimated GFR 159, Est GFR ( Amer) 193 D, Glucose 160 H, Calcium 8.5 12/09/21 08:18: WBC 4.4 L D, RBC 4.20, Hgb 12.6, Hct 38.3, MCV 91.3, MCH 29.9, MCHC 32.8, RDW 13.9, Plt Count 138 L D, MPV 10.0, Neut % (Auto) 61.3, Lymph % (Auto) 28.3, [place] % (Auto) 4.9, Eos % (Auto) 4.8, Baso % (Auto) 0.6, Neut # (Auto) 2.7, Lymph # (Auto) 1.3, [place] # (Auto) 0.2, Eos # (Auto) 0.2, Baso # (Auto) 0.0 12/09/21 11:44: POC Glucose 158 H Temp Pulse Resp BP Pulse Ox 98.1 F 80 16 120/69 97 12/01/21 04:00 12/01/21 04:00 12/01/21 04:00 12/01/21 04:00 12/01/21 04:00 Laboratory Results - last 24 hr 11/29/21 06:05: Stl Aeromonas (PCR) Not detected, Stl C. cayetanensis PCR Not detected, Stool Rotavirus (PCR) Not detected, Stl Adenov F 40/41 PCR Not detected, Stool Astrovirus (PCR) Not detected, Stool Campylobacter PCR Not detected, Stl C.difficile Tox PCR Not detected, Stool Cryptosporidium PCR Not detected, Stl E.coli Shiga Tox PCR Not detected, Stool E coli O157 PCR Not detected, Stl Enterotoxigenic E PCR Not detected, Stool EPEC (PCR) Not detected, Stool EAEC (PCR) Not detected, Stl E. histolytica PCR Not detected, Stool Giardia Lamblia PCR Not detected, Stool Salmonella PCR Not detected, Stool Sapovirus (PCR) Not detected, Stl P. shigelloides PCR Not detected, Stl Shigella/EIEC PCR Not detected, St Y.enterocolitica PCR Not detected, Stool Vibrio (PCR) Not detected, Stl Vibrio cholerae PCR Not detected, Stl Norovirus GI/GII PCR Not detected 11/29/21 22:00: Urine Color Yellow, Urine Appearance Cloudy, Urine pH 5.5, Ur Specific [place] >= 1.030, Urine Protein 3+, Urine Glucose (UA) Negative, Urine Ketones 1+, Urine Blood Trace-i, Urine Nitrate Negative, Urine Bilirubin 2+ A, Urine Urobilinogen 0.2, Ur Leukocyte Esterase Negative, Urine RBC 3-5, Urine WBC 3-5, Ur Squamous Epith Cells 20-50, Amorphous Sediment 1+, Urine Bacteria 4+ 11/30/21 03:15: Lipase 58 11/30/21 05:35: Hemoglobin A1c 7.7 H 11/30/21 08:15: Sodium 139, Potassium 3.6, Chloride 105, Carbon Dioxide 25, Anion Gap 12.6, BUN 11, Creatinine 0.50 L, Estimated Creat Clear 83, Estimated GFR 123, Est GFR ( Amer) 149 D, Glucose 160 H D, Calcium 8.6 11/30/21 11:03: POC Glucose 208 H 11/30/21 15:23: WBC 6.9 D, RBC 3.93 L D, Hgb 11.8 L D, Hct 35.5 L, MCV 90.2, MCH 30.0, MCHC 33.2, RDW 14.0, Plt Count 149 D, MPV 10.7 H, Neut % (Auto) 67.6, Lymph % (Auto) 23.6, [place] % (Auto) 6.1, Eos % (Auto) 2.3, Baso % (Auto) 0.4, Neut # (Auto) 4.6, Lymph # (Auto) 1.6, [place] # (Auto) 0.4, Eos # (Auto) 0.2, Baso # (Auto) 0.0 11/30/21 16:10: POC Glucose 170 H 11/30/21 19:56: POC Glucose 257 H 12/01/21 05:38: Sodium 142, Potassium 3.7, Chloride 107, Carbon Dioxide 27, Anion Gap 11.7, BUN 6 L D, Creatinine 0.50 L, Estimated Creat Clear 83, Estimated GFR 123, Est GFR ( Amer) 149, Glucose 195 H D, Calcium 8.7 12/01/21 05:51: POC Glucose 202 H I & O for Last 24 hours: Intake & Output 12/06/21 12/07/21 1
[2021-12-09 17:11] LABS: POC Glucose,Bedside 225 (70-110)
[2021-12-09 20:00] VITALS: BP 131/55; PULSE 85; RESP 18; TEMP 36.9; O2SAT 96
--- NOTE | 2021-12-09 20:14 | PC.NURSE ---
Pt is A/ox4. She has tolerated her diet well this shift. She ambulated multiple times in her room independently. She has been RA all shift. She has no complaints.
[2021-12-09 21:27] LABS: POC Glucose,Bedside 154 (70-110)
--- NOTE | 2021-12-10 01:58 | EXP.PN ---
Subjective *Date: 12/10/21 *Time: 05:52 Interval history: Progress note I saw and examined this patient in room 203. Upon examination of this patient she appears to be in no acute distress and nontoxic in nature. This is patient's second day of admission to the hospital. She denies any acute complaints this evening she continues to receive IV antibiotics for the urinary tract infection. Will monitor laboratory studies in the morning. White blood cell count has decreased from 21.8 on 12/07/2021 to 4.4 this morning. Microbiology results of blood cultures showed no growth after 48 hours and the preliminary urine culture revealed gram-negative rods. Will continue current clinical plan and evaluate for potential discharge in the next 24 hours. Exam Data for Last 24 hours Vital signs and Labs for Last 24 Hours: Temp Pulse Resp BP Pulse Ox 98.5 F 85 18 131/55 L 96 12/09/21 20:00 12/09/21 20:00 12/09/21 20:00 12/09/21 20:00 12/09/21 20:00 Laboratory Results - last 24 hr 12/09/21 06:12: POC Glucose 142 H 12/09/21 06:28: Sodium 139, Potassium 3.9, Chloride 109 H, Carbon Dioxide 26, Anion Gap 7.9, BUN 3 L D, Creatinine 0.40 L, Estimated Creat Clear 86, Estimated GFR 159, Est GFR ( Amer) 193 D, Glucose 160 H, Calcium 8.5 12/09/21 08:18: WBC 4.4 L D, RBC 4.20, Hgb 12.6, Hct 38.3, MCV 91.3, MCH 29.9, MCHC 32.8, RDW 13.9, Plt Count 138 L D, MPV 10.0, Neut % (Auto) 61.3, Lymph % (Auto) 28.3, [place] % (Auto) 4.9, Eos % (Auto) 4.8, Baso % (Auto) 0.6, Neut # (Auto) 2.7, Lymph # (Auto) 1.3, [place] # (Auto) 0.2, Eos # (Auto) 0.2, Baso # (Auto) 0.0 12/09/21 11:44: POC Glucose 158 H 12/09/21 16:49: POC Glucose 225 H 12/09/21 20:34: POC Glucose 154 H Temp Pulse Resp BP Pulse Ox 98.1 F 80 16 120/69 97 12/01/21 04:00 12/01/21 04:00 12/01/21 04:00 12/01/21 04:00 12/01/21 04:00 Laboratory Results - last 24 hr 11/29/21 06:05: Stl Aeromonas (PCR) Not detected, Stl C. cayetanensis PCR Not detected, Stool Rotavirus (PCR) Not detected, Stl Adenov F 40/41 PCR Not detected, Stool Astrovirus (PCR) Not detected, Stool Campylobacter PCR Not detected, Stl C.difficile Tox PCR Not detected, Stool Cryptosporidium PCR Not detected, Stl E.coli Shiga Tox PCR Not detected, Stool E coli O157 PCR Not detected, Stl Enterotoxigenic E PCR Not detected, Stool EPEC (PCR) Not detected, Stool EAEC (PCR) Not detected, Stl E. histolytica PCR Not detected, Stool Giardia Lamblia PCR Not detected, Stool Salmonella PCR Not detected, Stool Sapovirus (PCR) Not detected, Stl P. shigelloides PCR Not detected, Stl Shigella/EIEC PCR Not detected, St Y.enterocolitica PCR Not detected, Stool Vibrio (PCR) Not detected, Stl Vibrio cholerae PCR Not detected, Stl Norovirus GI/GII PCR Not detected 11/29/21 22:00: Urine Color Yellow, Urine Appearance Cloudy, Urine pH 5.5, Ur Specific [place] >= 1.030, Urine Protein 3+, Urine Glucose (UA) Negative, Urine Ketones 1+, Urine Blood Trace-i, Urine Nitrate Negative, Urine Bilirubin 2+ A, Urine Urobilinogen 0.2, Ur Leukocyte Esterase Negative, Urine RBC 3-5, Urine WBC 3-5, Ur Squamous Epith Cells 20-50, Amorphous Sediment 1+, Urine Bacteria 4+ 11/30/21 03:15: Lipase 58 11/30/21 05:35: Hemoglobin A1c 7.7 H 11/30/21 08:15: Sodium 139, Potassium 3.6, Chloride 105, Carbon Dioxide 25, Anion Gap 12.6, BUN 11, Creatinine 0.50 L, Estimated Creat Clear 83, Estimated GFR 123, Est GFR ( Amer) 149 D, Glucose 160 H D, Calcium 8.6 11/30/21 11:03: POC Glucose 208 H 11/30/21 15:23: WBC 6.9 D, RBC 3.93 L D, Hgb 11.8 L D, Hct 35.5 L, MCV 90.2, MCH 30.0, MCHC 33.2, RDW 14.0, Plt Count 149 D, MPV 10.7 H, Neut % (Auto) 67.6, Lymph % (Auto) 23.6, [place] % (Auto) 6.1, Eos % (Auto) 2.3, Baso % (Auto) 0.4, Neut # (Auto) 4.6, Lymph # (Auto) 1.6, [place] # (Auto) 0.4, Eos # (Auto) 0.2, Baso # (Auto) 0.0 11/30/21 16:10: POC Glucose 170 H 11/30/21 19:56: POC Glucose 257 H 12/01/21 05:38: Sodium 142, Potassium 3.7, Chloride 107, Carbon Dioxide 27, Anion Gap 11.7, BUN 6 L
[2021-12-10 04:00] VITALS: BP 116/68; PULSE 79; RESP 20; TEMP 36.6; O2SAT 97
[2021-12-10 04:20] LABS: Peripheral Smear Review Scanned Result
--- NOTE | 2021-12-10 04:31 | PC.NURSE ---
Shift summary: Pt has not voiced any c/o to staff. Tolerating RA. VS WNL. Ambulating to BR independently. Call light within reach.
[2021-12-10 04:54] LABS: POC Glucose,Bedside 129 (70-110)
[2021-12-10 05:00] VITALS: BMI 35.8
[2021-12-10 08:21] VITALS: BP 139/66; PULSE 75; RESP 16; TEMP 36.7; O2SAT 96
--- NOTE | 2021-12-10 10:34 | EXP.DC.SUM ---
General Admission date:: 12/07/21 Discharge date: 12/10/21 HPI HPI HPI: Ms. Ayala is a 66-year-old female with a past medical history that is positive for Diabetes Mellitus, Hypothyroidism and Hypertension. She presents to [facility] through the ER, today, 12/07/2021 secondary to feeling ill associated with nausea and vomiting that started approximately two days prior to this admission. The patient was seen in the ER prior to admission. It is important to note that the patient was just discharged from this facility following an acute hospitalization from 11/29-12/01/21 where she was treated for Sepsis due to UTI from gram negative rods. She was treated with a seven day course of Levaquin. WBC normalized prior to discharge. The patient reports that she took her antibiotic as prescribed. She reports that two days prior to presentation that she started feeling ill and fatigued. She reports that she missed work two days ago and went to work the last two days (12/06 and 12/07). She reports that today following work that she continued to feel ill and started having constant vomiting and diarrhea so she came into the ER again for evaluation. In the ER the patient was noted to be Tachycardic with a HR of 125, WBC was elevated at 21.8. Anion Gap was 20.6, Co2 was within normal range at 22. Urinalysis was negative for leukocytes and showed trace bacteria. The patient will be admitted with initial impression: SIRS and Dehydration. Cultures will be obtained again to include stool, urine and blood. A KUB will be ordered. The patient will be given fluids. The plan of care was discussed with the patient in length and detail at bedside. The patient verbalized understanding and agreement with the plan of care. Hospital Course Hospital Course Hospital Course: The patient was admitted to the medical floor with IV fluid resuscitation. Her imaging was significant for kidney stones and the patient reported chronic history of kidney stones with previous evaluation by Dr. Edd Sosa from urology. Her previous urine culture identified intermediate sensitivity to Levaquin. Her labs, inflammatory markers and cultures were trended. She was administered IV Rocephin with good tolerance and resolve of her leukocytosis. The patient identified improvement and inquired about discharge home. We recommended discharge home on antibiotic therapy with her kidney stones with the addition of alpha-arlin therapy. Her usual blood pressure medication was reduced in dose secondary to low blood pressures in the hospital. She is advised to follow-up with her PCP in 3 to 5 days to discuss her kidney stones, urinary tract infection and reassess her blood pressure and medications. She is advised to follow-up with her urologist to discuss her hospitalization course and chronic kidney stones. I spent 35 minutes in [id number] time with the patient and nursing staff (Laverne STEPHENS) concerning the discharge process. We discussed the admitting diagnoses and the hospital course. We discussed identified improvement and the patient's desire to be discharged. We reviewed inpatient studies and imaging. The patient voiced understanding on the importance of follow-up with her primary care provider and urologist. The patient plans to be compliant with the medication regimen prescribed. She understands that she can return to the emergency department with any sudden changes or concerns. Exam Data for Last 24 hours Vital signs and Labs for Last 24 Hours: Temp Pulse Resp BP Pulse Ox 98.1 F 75 16 139/66 96 12/10/21 08:21 12/10/21 08:21 12/10/21 08:21 12/10/21 08:21 12/10/21 08:21 Laboratory Results - last 24 hr 12/09/21 11:44: POC Glucose 158 H 12/09/21 16:49: POC Glucose 225 H 12/09/21 20:34: POC Glucose 154 H 12/10/21 04:47: POC Glucose 129 H I & O for Last 24 hours: Intake & Output 12/07/21 12/08/21 12/09/21 12/10/21 23:59 23:59 23:59 23:
--- NOTE | 2021-12-10 10:55 | PC.NURSE ---
Pt is calling jo
--- NOTE | 2021-12-12 14:36 | CARE MANAGER ---
Left message for post-discharge phone interview.
== END 2021-12-10 11:50 | disposition home or self-care (01) ==
LOC: ER 19:39 → 2ND 20:56
PROVIDERS: Nurse Practitioner Family; Admitting Provider Family Medicine; Emergency Provider Emergency Medicine; Visit Provider Family Medicine
DX: E86.0 Dehydration (principal); I10 Essential (primary) hypertension; E11.9 Type 2 diabetes mellitus without complications; E03.9 Hypothyroidism, unspecified; Z79.899 Other long term (current) drug therapy; Z79.84 Long term (current) use of oral hypoglycemic drugs; N39.0 Urinary tract infection, site not specified
CPT/HCPCS: 36415; 71045; 74018; 80048; 80053; 81001; 82803; 82962; 83605; 83690; 84145; 84443; 84484; 85007; 85025; 85378; 87040; 93005; 99285; C9803; G0378; J0696; J2405; U0003; U0005

== ENCOUNTER 2022-03-22 17:20 | Emergency (ER) | payer BC, MEDICARE, SELFPAY ==
[2022-03-22 18:08] VITALS: BP 138/72; PULSE 95; RESP 18; TEMP 36.9; O2SAT 97; BMI 35.5
--- NOTE | 2022-03-22 18:19 | CT_ITS ---
PROCEDURE INFORMATION: Exam: CT Abdomen And Pelvis With Contrast Exam date and time: 03/22/2022 7:48 PM Age: 66 years old Clinical indication: Abdominal pain; Generalized TECHNIQUE: Imaging protocol: Computed tomography of the abdomen and pelvis with contrast. Radiation optimization: All CT scans at this facility use at least one of these dose optimization techniques: automated exposure control; mA and/or kV adjustment per patient size (includes targeted exams where dose is matched to clinical indication); or iterative reconstruction. Contrast material: ISOVUE; Contrast volume: 75 ml; Contrast route: IV; Other protocol: This patient has received 2 known CTs and 0 known cardiac nuclear medicine studies in the 12 months prior to the current study. COMPARISON: CT ABDOMEN PELVIS W CON 11/29/2021 9:55 PM FINDINGS: Heart: Mitral valve calcifications. Coronary arteries: Coronary artery calcifications. Liver: Hepatic steatosis and cirrhosis. Gallbladder and bile ducts: Gallbladder is absent. Pancreas: Normal. No ductal dilation. Spleen: Borderline splenomegaly. Adrenal glands: Normal. No mass. Kidneys and ureters: Nonobstructing bilateral nephrolithiasis. Stomach and bowel: Nonspecific bowel wall thickening of portions of small bowel and colon. Appendix: Unremarkable appendix. Intraperitoneal space: Unremarkable. No free air. No significant fluid collection. Vasculature: The arteries demonstrate mild atherosclerotic disease. Lymph nodes: Unremarkable. No enlarged lymph nodes. Urinary bladder: Unremarkable as visualized. Reproductive: Status post hysterectomy. Bones/joints: The lumbar spine demonstrates moderate degenerative changes at multiple levels. Soft tissues: There is a healed anterior abdominal wall incision. Other findings: Stigmata of old granulomatous disease. IMPRESSION: 1. Nonspecific bowel wall thickening of portions of small bowel and colon. Please exclude enterocolitis. 2. Hepatic steatosis and cirrhosis. 3. Nonobstructing bilateral nephrolithiasis.
--- NOTE | 2022-03-22 18:26 | HMH.EDGENADL ---
Discharge Plan Disposition Patient Disposition: Still a Patient Prescriptions Prescriptions: No Action metformin 1,000 mg tablet 1,000 mg PO BID Label Comments: TAKE 1 TABLET BY MOUTH TWICE DAILY WITH A MEAL Rybelsus 14 mg tablet 14 mg PO DAILYDM Label Comments: TAKE 1 TABLET BY MOUTH EVERY DAY 30 MINUTES BEFORE FIRST FOOD OR BEVERAGE OR MEDICINE OF THE DAY tamsulosin 0.4 mg Capsule 0.4 mg PO HS Qty: 30 0RF cefdinir 300 mg capsule 300 mg PO BID Qty: 20 0RF quinapril 10 mg tablet 10 mg PO DAILY Qty: 30 0RF levothyroxine 88 MCG tablet 88 mcg PO DAILYDM glimepiride 4 MG tablet 8 mg PO DAILYDM Referrals Follow up/Referrals: Edith King MD [Primary Care Provider] - See instructions Clinical Impressions Clinical Impression: Abdominal pain Instructions Patient Instructions: DI for Acute Abdominal Pain Discharge ED Provider: Lino Beckman General Adult HPI General Chief complaint: Abdominal Pain Stated complaint: Abdominal Pain,Diarrhea Time Seen by Provider: 03/22/22 19:00 Mode of Arrival: Ambulatory Source of Information: Patient Limitations: No Limitations Description of Symptoms (Recalled from ER Triage Doc. by RN): Pt reports lower abd cramping x2 days, diarrhea. Pt also reports nausea and GERD, burning like reflux x2 days. Pt denies vomitting, fever or urinary symptoms. History of Present Illness HPI narrative: 66-year-old female presents with lower abdominal cramping for 2 days and watery diarrhea. She also has nausea and GERD history of hiatal hernia. Pain is constant nonradiating. No hematuria or dysuria. Related Data Home Medications Medication Instructions Recorded Confirmed glimepiride 4 mg tablet 8 mg PO DAILYDM Diabetes 01/27/18 12/08/21 levothyroxine 88 mcg tablet 88 mcg PO DAILYDM hypothyroidism 01/27/18 12/08/21 metformin 1,000 mg tablet 1,000 mg PO BID Diabetes 11/29/21 12/08/21 semaglutide 14 mg tablet (Rybelsus) 14 mg PO DAILYDM Diabetes 11/29/21 12/08/21 Previous Rx's Medication Instructions Recorded cefdinir 300 mg capsule 300 mg PO BID #20 caps 12/10/21 quinapril 10 mg tablet 10 mg PO DAILY #30 tabs 12/10/21 tamsulosin 0.4 mg capsule 0.4 mg PO HS #30 caps 12/10/21 Allergies Allergy/AdvReac Type Severity Reaction Status Date / Time chlordiazepoxide Allergy Unknown Verified 12/23/20 10:42 [From LIBRAX (WITH CLIDINIUM)] clidinium Allergy Unknown Verified 12/23/20 10:42 [From LIBRAX (WITH CLIDINIUM)] iodine [IODINE] Allergy Unknown Verified 12/07/21 23:16 Penicillins [PENICILLINS] Allergy Unknown Rash Verified 12/07/21 23:16 Sulfa (Sulfonamide Allergy Unknown Rash Verified 12/07/21 23:16 Antibiotics) [SULFA (SULFONAMIDE ANTIBIOTICS)] morphine Allergy Chest Pain Verified 12/07/21 23:16 [facility] Disclaimer: The information contained in this section may have been updated after the patient was seen, as this information can be updated by other users. 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 (Updated 03/22/22 @ 19:52 by Lino Beckman MD) Ankle fracture, right Bladder cancer Cholelithiases Dermatitis Dermatitis Dermatitis Diabetes mellitus, type 2 Endometrial cancer GERD (gastroesophageal reflux disease) Hypertension Hypothyroidism Kidney stones Left wrist fracture UTI (urinary tract infection) Surgical History (Updated 12/07/21 @ 23:27 by Suzanne Rodriguez, KAT) H/O bilateral oophorectomy H/O total hysterectomy History of cholecystectomy S/P hernia surgery Family History Other Breast cancer Endometrial cancer Family history of GERD Hypertension 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 (Updated 12/07/21 @ 23:29 by Suzanne Rodriguez, RN) Smoking Status: Never smoker alcohol intake: never substance use type: denies use current occupational status: employed and other Travel in the last 8 weeks: None household members: family housing:
[2022-03-22 18:59] LABS: Chloride 106 mmol/L (98-107)
[2022-03-22 19:00] VITALS: BP 117/81; PULSE 95; O2SAT 96
[2022-03-22 19:00] LABS: Basophils # 0.1 K/mm3 (0-0.2); Basophils % 0.7 % (0.1-2.0); Eosinophils # 0.4 K/mm3 (0.0-0.4); Eosinophils % 3.4 % (0.1-12.0); Hematocrit 42.7 % (37.0-47.0); Hemoglobin 14.5 g/dL (12.2-16.2); Lymphocytes # 2.2 K/mm3 (0.7-4.5); Mean Corpuscular HGB Conc 34.1 g/dL (31.8-35.4); Mean Corpuscular Hemoglobin 29.9 pg (27.0-31.2); Mean Corpuscular Volume 87.8 fl (81-99); Mean Platelet Volume 9.9 fl (7.4-10.4); Monocytes # 0.5 K/mm3 (0.1-1.0); Monocytes % 4.5 % (1.7-9.3); Neutrophils # 7.3 K/mm3 (1.8-7.8); Neutrophils % 70.4 % (37.0-80.0); Platelet Count 184 K/mm3 (142-424); Potassium 3.7 mmoL/L (3.5-5.1); Red Blood Count 4.87 M/mm3 (4.20-5.40); Red Cell Distribution Width 13.9 % (11.5-17.5); Sodium 139 mmol/L (136-145); White Blood Count 10.4 K/mm3 (4.8-10.8)
--- NOTE | 2022-03-22 19:00 | PC.NURSE ---
shift change report given to emely salinas and marielenarn
[2022-03-22 19:02] LABS: Alanine Aminotransferase 35 U/L (12-78); Albumin Level 4.2 g/dl (3.5-5.0); Albumin/Globulin Ratio 1.4 (1.1-1.8); Alkaline Phosphatase 79 U/L (38-126); Aspartate Amino Transferase 44 U/L (14-36); Bilirubin,Total 0.6 mg/dl (0.2-1.3); Blood Urea Nitrogen 6 mg/dl (7-17); Creatinine Clearance Estimated 86 mL/min (50-200); Estimated Glomerular Filt Rate 123 ml/min (>60); GFR (African American) 149 ML/MIN (>60); Globulin 3.1 g/dL (1.3-3.2); Total Protein,Serum 7.3 g/dl (6.3-8.2)
[2022-03-22 19:03] LABS: Anion Gap 14.7 mEq/L (5-15); Calcium 9.5 mg/dl (8.4-10.2); Carbon Dioxide 22 mmol/L (22.0-30.0); Glucose 170 mg/dl (74-100)
[2022-03-22 19:19] LABS: Lipase 177 U/L (23-300)
[2022-03-22 19:30] VITALS: BP 137/79; PULSE 87; O2SAT 95
--- NOTE | 2022-03-22 19:41 | ECG_ITS ---
APPROVED REPORT Exam: Resting ECG HR:84 bpm ECG Measurements Heart Rate 84 AXES SC 183 P 48 QRSd 100 QRS -29 QT 377 T 20 QTc 418 Conclusion SINUS RHYTHM LOW QRS VOLTAGE IN PRECORDIAL LEADS [QRS DEFLECTION < 1.0 mV IN CHEST LEADS] MODERATE VOLTAGE CRITERIA FOR LVH, CONSIDER NORMAL VARIANT [MEETS CRITERIA IN ONE OF: R(aVL), S(V1), R(V5), R(V5/V6)+S(V1)] POSSIBLE ANTERIOR MYOCARDIAL INFARCTION , PROBABLY OLD [30 ms Q WAVE IN V3/V4, OR R < 0.2 mV IN V4] BORDERLINE ECG UNCONFIRMED REPORT Electronically signed by : Henry Macias MD 03/23/2022 08:01:13
--- NOTE | 2022-03-22 19:55 | PC.NURSE ---
Pt back from RAD
[2022-03-22 20:00] VITALS: BP 142/79; PULSE 93; O2SAT 96
[2022-03-22 20:30] VITALS: BP 115/68; PULSE 95; O2SAT 95
[2022-03-22 20:41] LABS: Microscopic, Urine URINE MICROSCOPIC (MICROSCOPIC)
[2022-03-22 20:47] LABS: Appearance,Urine CLEAR (Clear); Bilirubin,Urine Negative (Negative); Blood, Urine Negative (Negative); Color,Urine STRAW (Yellow); Glucose,Urine (UA) Negative (Negative); Ketones,Urine Negative (Negative); Leukocyte Esterase,Urine Negative (Negative); Nitrate,Urine Negative (Negative); Protein,Urine Negative (Negative); Specific Gravity, Urine <= 1.005 (1.005-1.030); Urobilinogen,Urine 0.2 EU/dl (0.2)
--- NOTE | 2022-03-22 22:17 | PC.NURSE ---
Rounded on pt. Pt notified that we have critical cases at this time and we will be back with them as soon as possible.
[2022-03-22 23:10] VITALS: BP 121/75; PULSE 82; RESP 18; TEMP 36.6; O2SAT 97
--- NOTE | 2022-03-22 23:18 | PC.NURSE ---
Pt d/c at [id number]
--- NOTE | 2022-03-23 06:04 | HMH.EDABDPAI ---
Discharge Plan Disposition Patient Disposition: Home, Self-Care Prescriptions Prescriptions: No Action metformin 1,000 mg tablet 1,000 mg PO BID Label Comments: TAKE 1 TABLET BY MOUTH TWICE DAILY WITH A MEAL Rybelsus 14 mg tablet 14 mg PO DAILYDM Label Comments: TAKE 1 TABLET BY MOUTH EVERY DAY 30 MINUTES BEFORE FIRST FOOD OR BEVERAGE OR MEDICINE OF THE DAY tamsulosin 0.4 mg Capsule 0.4 mg PO HS Qty: 30 0RF cefdinir 300 mg capsule 300 mg PO BID Qty: 20 0RF quinapril 10 mg tablet 10 mg PO DAILY Qty: 30 0RF levothyroxine 88 MCG tablet 88 mcg PO DAILYDM glimepiride 4 MG tablet 8 mg PO DAILYDM Referrals Follow up/Referrals: Edith King MD [Primary Care Provider] - See instructions Clinical Impressions Clinical Impression: Abdominal pain, Gastroenteritis Instructions Patient Instructions: DI for Acute Abdominal Pain Discharge ED Provider: Lino Beckman Abdominal Pain HPI General Chief Complaint: Abdominal Pain Stated Complaint: Abdominal Pain,Diarrhea Time Seen by Provider: 03/22/22 19:00 Mode of Arrival: Ambulatory Source of Information: Patient and Medical Record Limitations: No Limitations Description of Symptoms (Recalled from ER Triage Doc. by RN): Pt reports lower abd cramping x2 days, diarrhea. Pt also reports nausea and GERD, burning like reflux x2 days. Pt denies vomitting, fever or urinary symptoms. History of Present Illness HPI narrative: crampy lower abd pain with nausea and episode of diarrhea x 2 days no hematuria - also has gerd sx - MD complaint: abdominal pain Onset (ago): day(s) Consistency: intermittent Location: diffuse Severity: moderate Associated symptoms: denies other symptoms Related Data Home Medications Medication Instructions Recorded Confirmed glimepiride 4 mg tablet 8 mg PO DAILYDM Diabetes 01/27/18 12/08/21 levothyroxine 88 mcg tablet 88 mcg PO DAILYDM hypothyroidism 01/27/18 12/08/21 metformin 1,000 mg tablet 1,000 mg PO BID Diabetes 11/29/21 12/08/21 semaglutide 14 mg tablet (Rybelsus) 14 mg PO DAILYDM Diabetes 11/29/21 12/08/21 Previous Rx's Medication Instructions Recorded cefdinir 300 mg capsule 300 mg PO BID #20 caps 12/10/21 quinapril 10 mg tablet 10 mg PO DAILY #30 tabs 12/10/21 tamsulosin 0.4 mg capsule 0.4 mg PO HS #30 caps 12/10/21 Allergies Allergy/AdvReac Type Severity Reaction Status Date / Time chlordiazepoxide Allergy Unknown Verified 12/23/20 10:42 [From LIBRAX (WITH CLIDINIUM)] clidinium Allergy Unknown Verified 12/23/20 10:42 [From LIBRAX (WITH CLIDINIUM)] iodine [IODINE] Allergy Unknown Verified 12/07/21 23:16 Penicillins [PENICILLINS] Allergy Unknown Rash Verified 12/07/21 23:16 Sulfa (Sulfonamide Allergy Unknown Rash Verified 12/07/21 23:16 Antibiotics) [SULFA (SULFONAMIDE ANTIBIOTICS)] morphine Allergy Chest Pain Verified 12/07/21 23:16 [facility] Disclaimer: The information contained in this section may have been updated after the patient was seen, as this information can be updated by other users. 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 (Updated 03/23/22 @ 06:09 by Samuel JOE)MD) Ankle fracture, right Bladder cancer Cholelithiases Dermatitis Dermatitis Dermatitis Diabetes mellitus, type 2 Endometrial cancer GERD (gastroesophageal reflux disease) Hypertension Hypothyroidism Kidney stones Left wrist fracture UTI (urinary tract infection) Surgical History (Updated 12/07/21 @ 23:27 by Suzanne Rodriguez RN) H/O bilateral oophorectomy H/O total hysterectomy History of cholecystectomy S/P hernia surgery Family History Other Breast cancer Endometrial cancer Family history of GERD Hypertension 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 (Updated 12/07/21 @ 23:29 by Suzanne Rodriguez RN) Smoking Status: Never smoker alcohol intake: never substance use type: denies use current occupatio
== END 2022-03-22 23:10 | disposition home or self-care (01) ==
PROVIDERS: Emergency Provider Emergency Medicine; PCP Family Medicine
DX: R10.30 Lower abdominal pain, unspecified (principal); R19.7 Diarrhea, unspecified; R11.0 Nausea; K21.9 Gastro-esophageal reflux disease without esophagitis; Z85.51 Personal history of malignant neoplasm of bladder; E11.9 Type 2 diabetes mellitus without complications; Z85.42 Personal history of malignant neoplasm of other parts of uterus; I10 Essential (primary) hypertension; E03.9 Hypothyroidism, unspecified; Z87.440 Personal history of urinary (tract) infections; Z87.442 Personal history of urinary calculi; Z90.710 Acquired absence of both cervix and uterus; Z80.9 Family history of malignant neoplasm, unspecified; Z82.49 Family history of ischemic heart disease and other diseases of the circulatory system; Z83.79 Family history of other diseases of the digestive system
CPT/HCPCS: 74177; 80053; 81001; 83690; 85025; 93005; 96361; 96374; 99285; J2405; Q9967

== ENCOUNTER 2022-09-18 16:33 | Observation (INO) | payer MEDICARE, OTHER, SELFPAY ==
[2022-09-18] VITALS (11 sets, daily range): BP systolic 117–179; BP diastolic 61–103; PULSE 73–132; RESP 13–19; TEMP 36.8–37.2; O2SAT 94–98; BMI 35.6
--- NOTE | 2022-09-18 16:33 | ECG_ITS ---
APPROVED REPORT Exam: Resting ECG HR:136 bpm ECG Measurements Heart Rate 136 AXES VA 147 P 87 QRSd 90 QRS -66 QT 307 T 75 QTc 386 Conclusion SINUS TACHYCARDIA POSSIBLE ANTERIOR MYOCARDIAL INFARCTION , PROBABLY OLD [30 ms Q WAVE IN V3/V4, OR R < 0.2 mV IN V4] INFERIOR MYOCARDIAL INFARCTION , OF INDETERMINATE AGE [40+ ms Q WAVE AND/OR ST/T ABNORMALITY IN II/aVF] ABNORMAL ECG UNCONFIRMED REPORT Electronically signed by : Henry Macias MD 09/19/2022 20:49:10
--- NOTE | 2022-09-18 16:46 | CT_ITS ---
PROCEDURE INFORMATION: Exam: CTA Chest With Contrast Exam date and time: 09/18/2022 6:11 PM Age: 66 years old Clinical indication: Pain; Radiating; Additional info: Chest pain radiating to back, SOA, tachycardia TECHNIQUE: Imaging protocol: Computed tomographic angiography of the chest with contrast. Exam focused on the arteries. 3D rendering (Not supervised by radiologist): MIP and/or 3D reconstructed images were created by the technologist. Radiation optimization: All CT scans at this facility use at least one of these dose optimization techniques: automated exposure control; mA and/or kV adjustment per patient size (includes targeted exams where dose is matched to clinical indication); or iterative reconstruction. Contrast material: ISOVUE; Contrast volume: 75 ml; Contrast route: INTRAVENOUS (IV); REPORTING DATA: Count of CT and Cardiac NM exams in prior 12 months: This patient has received 2 known CTs and 0 known cardiac nuclear medicine studies in the 12 months prior to the current study. COMPARISON: CR XR CHEST PORTABLE 09/18/2022 4:59 PM FINDINGS: Pulmonary arteries: Normal. No pulmonary emboli. Aorta: Unremarkable. No aortic aneurysm. No aortic dissection. Lungs: Small calcified granuloma in the RUL right lower lobe. Nodular change within the lingula which is most likely atelectatic in nature. Pleural spaces: Unremarkable. No pneumothorax. No pleural effusion. Heart: Unremarkable. No cardiomegaly. No pericardial effusion. Coronary arteries: Coronary vascular calcification. Lymph nodes: Unremarkable. No enlarged lymph nodes. Liver: Partially visualized cirrhotic morphology of the liver. Gallbladder and bile ducts: The patient is status post cholecystectomy. Bones/joints: Degenerative change of the thoracolumbar spine. Soft tissues: Unremarkable. IMPRESSION: 1. No evidence for pulmonary embolus. No acute intrathoracic abnormality. 2. Partially visualized changes of cirrhosis.
--- NOTE | 2022-09-18 16:46 | XR_ITS ---
PROCEDURE INFORMATION: Exam: XR Chest Exam date and time: 09/18/2022 4:59 PM Age: 66 years old Clinical indication: Shortness of breath; Additional info: wesly HERNANDEZ TECHNIQUE: Imaging protocol: Radiologic exam of the chest. Views: 1 view. COMPARISON: CR XR CHEST PORTABLE 12/07/2021 5:09 PM FINDINGS: Lungs: Unremarkable. No consolidation. Pleural spaces: Unremarkable. No pleural effusion. No pneumothorax. Heart/Mediastinum: Unremarkable. No cardiomegaly. Bones/joints: Unremarkable. Other findings: The examination is mildly limited as the patient's bra strap is in place. There is a low level of inspiration. IMPRESSION: No acute findings.
--- NOTE | 2022-09-18 16:46 | CT_ITS ---
PROCEDURE INFORMATION: Exam: CT Abdomen And Pelvis With Contrast Exam date and time: 09/18/2022 6:11 PM Age: 66 years old Clinical indication: Abdominal pain; Generalized; Additional info: Chest pain radiating to back, SOA, tachycardia TECHNIQUE: Imaging protocol: Computed tomography of the abdomen and pelvis with contrast. Radiation optimization: All CT scans at this facility use at least one of these dose optimization techniques: automated exposure control; mA and/or kV adjustment per patient size (includes targeted exams where dose is matched to clinical indication); or iterative reconstruction. Contrast material: ISOVUE; Contrast volume: 75 ml; Contrast route: IV; REPORTING DATA: Count of CT and Cardiac NM exams in prior 12 months: This patient has received 2 known CTs and 0 known cardiac nuclear medicine studies in the 12 months prior to the current study. COMPARISON: CT ABDOMEN PELVIS W CON 03/22/2022 7:48 PM FINDINGS: Liver: There is a cirrhotic morphology of the liver. Gallbladder and bile ducts: The patient is status post cholecystectomy. Pancreas: Normal. No ductal dilation. Spleen: The spleen is upper limits of normal in size. There are multiple calcifications in the spleen most likely reflects small granulomas. Adrenal glands: Normal. No mass. Kidneys and ureters: There are nonobstructing left lower pole intrarenal calculi. There is a nonobstructing right midpole intrarenal calculus. Stomach and bowel: There is mild fluid distention of a central small bowel loop without obstruction identified. Appendix: No evidence of appendicitis. Intraperitoneal space: Unremarkable. No free air. No significant fluid collection. Vasculature: There is atherosclerotic disease of the visualized aorta and its major branch vessels. Lymph nodes: Unremarkable. No enlarged lymph nodes. Urinary bladder: Unremarkable as visualized. Reproductive: Unremarkable as visualized. Bones/joints: There is diffuse degenerative disease of the visualized osseous structures. Soft tissues: Postsurgical changes of prior laparotomy. IMPRESSION: No acute pathology in the abdomen or pelvis. Cirrhosis and portal hypertension. Nonobstructing bilateral intrarenal calculi.
[2022-09-18 17:01] LABS: Basophils # 0.1 K/mm3 (0-0.2); Basophils % 0.3 % (0.1-2.0); Eosinophils # 0.3 K/mm3 (0.0-0.4); Eosinophils % 1.4 % (0.1-12.0); Hematocrit 51.1 % (37.0-47.0); Hemoglobin 16.2 g/dL (12.2-16.2); Lymphocytes % 9.4 % (10-50); Mean Corpuscular HGB Conc 31.7 g/dL (31.8-35.4); Mean Corpuscular Hemoglobin 27.9 pg (27.0-31.2); Mean Corpuscular Volume 87.9 fl (81-99); Monocytes # 0.9 K/mm3 (0.1-1.0); Monocytes % 4.4 % (1.7-9.3); Neutrophils # 17.6 K/mm3 (1.8-7.8); Neutrophils % 84.5 % (37.0-80.0); Platelet Count 227 K/mm3 (142-424); Red Blood Count 5.81 M/mm3 (4.20-5.40); White Blood Count 20.9 K/mm3 (4.8-10.8)
[2022-09-18 17:03] LABS: MANUAL DIFFERENTIAL MANUAL DIFFERENTIAL (MANUAL DIFF)
[2022-09-18 17:04] LABS: Alanine Aminotransferase 45 U/L (12-78); Albumin Level 4.8 g/dl (3.5-5.0); Alkaline Phosphatase 130 U/L (38-126); Anion Gap 20.7 mEq/L (5-15); Aspartate Amino Transferase 63 U/L (14-36); Bilirubin,Indirect 0.7 mg/dL (0.0-0.9); Bilirubin,Total 0.7 mg/dl (0.2-1.3); Bilirubin,Unconjugated 0.7 mg/dL (0.0-1.1); Blood Urea Nitrogen 7 mg/dl (7-17); Calcium 10.5 mg/dl (8.4-10.2); Carbon Dioxide 21 mmol/L (22.0-30.0); Chloride 104 mmol/L (98-107); Creatinine Clearance Estimated 81 mL/min (50-200); Estimated Glomerular Filt Rate 83 ml/min (>60); GFR (African American) 101 ML/MIN (>60); Glucose 221 mg/dl (74-100); Lipase 144 U/L (23-300); Potassium 3.7 mmoL/L (3.5-5.1); Sodium 142 mmol/L (136-145); Total Protein,Serum 8.6 g/dl (6.3-8.2)
[2022-09-18 17:07] LABS: Activated Partial Thrombo Time 28.4 seconds (22.8-30.6); INR 1.02 (0.9-1.1)
[2022-09-18 17:16] LABS: NT Pro Brain Natriuretic Pep. 42.1 pg/mL (0-125)
[2022-09-18 17:21] LABS: Lymphocytes % 13 % (10-50); Monocytes % 4 % (2-9); Neutrophils % 82 % (42-76); Platelet Estimate Normal; RBC Morphology Normal; Total Cells Counted 100
[2022-09-18 17:23] LABS: Troponin I < 0.01 ng/ml (0.00-0.034)
--- NOTE | 2022-09-18 17:27 | HMH.EDGENADL ---
Discharge Plan Disposition Patient Disposition: Admitted Chief Complaint: Chest Pain Clinical Impressions Clinical Impression: SIRS (systemic inflammatory response syndrome) Discharge ED Provider: Dilma Rogers General Adult HPI General Chief complaint: Chest Pain Stated complaint: chest pain Time Seen by Provider: 09/18/22 16:39 Mode of Arrival: Wheelchair Source of Information: Patient Limitations: No Limitations Description of Symptoms (Recalled from ER Triage Doc. by RN): 66 yo F presents to ED sent from PCP office. pt reports she went to [facility] for covid exposure. pt reports test in office was negative. per pt report [employer]EE[employer] noticed that her HR was elevated. EKG was taken. pt sent to ED for further evaluation. when pt presents to ED she has c/o vomitting, diarrhea, shortness of air and chest pain located in the middle of her chest. History of Present Illness HPI narrative: Patient has a PMHx significant for endometrial cancer, bladder lesion under surveillance, hypertension, diabetes, multiple kidney stones who presents to the ED with complaints of chest pain, abdominal pain, fatigue. Patient notes on Sunday, she had a COVID exposure. Over the past 2 days, the patient has been having progressively worsening weakness, generalized malaise and fatigue. Starting this morning, patient notes that she has been having this generalized abdominal cramping with associated nausea vomiting x3. All vomiting has been nonbloody. Furthermore, starting this morning, she has been having a progressive chest pain, which she describes as a pressure sensation that radiates to her back between her shoulder blades. Patient endorses mild shortness of breath. Patient went to her PCPs office due to these complaints and was found to be tachycardic. Patient subsequently transferred to for further evaluation. Related Data Home Medications Medication Instructions Recorded Confirmed glimepiride 4 mg tablet 8 mg PO DAILYDM Diabetes 01/27/18 12/08/21 levothyroxine 88 mcg tablet 88 mcg PO DAILYDM hypothyroidism 01/27/18 12/08/21 metformin 1,000 mg tablet 1,000 mg PO BID Diabetes 11/29/21 12/08/21 semaglutide 14 mg tablet (Rybelsus) 14 mg PO DAILYDM Diabetes 11/29/21 12/08/21 Previous Rx's Medication Instructions Recorded cefdinir 300 mg capsule 300 mg PO BID #20 caps 12/10/21 quinapril 10 mg tablet 10 mg PO DAILY #30 tabs 12/10/21 tamsulosin 0.4 mg capsule 0.4 mg PO HS #30 caps 12/10/21 Allergies Allergy/AdvReac Type Severity Reaction Status Date / Time chlordiazepoxide Allergy Unknown Verified 09/18/22 16:47 [From LIBRAX (WITH CLIDINIUM)] clidinium Allergy Unknown Verified 09/18/22 16:47 [From LIBRAX (WITH CLIDINIUM)] iodine [IODINE] Allergy Unknown Verified 09/18/22 16:47 Penicillins [PENICILLINS] Allergy Unknown Rash Verified 09/18/22 16:47 Sulfa (Sulfonamide Allergy Unknown Rash Verified 09/18/22 16:47 Antibiotics) [SULFA (SULFONAMIDE ANTIBIOTICS)] morphine Allergy Chest Pain Verified 09/18/22 16:47 [facility] Disclaimer: The information contained in this section may have been updated after the patient was seen, as this information can be updated by other users. 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 (Updated 09/18/22 @ 20:39 by Dilma Rogers MD) Ankle fracture, right Bladder cancer Cholelithiases Dermatitis Dermatitis Dermatitis Diabetes mellitus, type 2 Endometrial cancer GERD (gastroesophageal reflux disease) Hypertension Hypothyroidism Kidney stones Left wrist fracture UTI (urinary tract infection) Surgical History (Updated 12/07/21 @ 23:27 by Suzanne Rodriguez, KAT) H/O bilateral oophorectomy H/O total hysterectomy History of cholecystectomy S/P hernia surgery Family History Other Breast cancer Endometrial cancer Family history of GERD Hypertension 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 (Updated 12/07/21 @ 23:29 by Suzanne Rodriguez, KAT) Vitor
--- NOTE | 2022-09-18 17:28 | PC.NURSE ---
LAB CALLED FOR LACTIC DRAWL AND COVID SWAB SENT TO LAB
[2022-09-18 17:34] LABS: Coronavirus 19, PCR Not Detected (NotDetected); Influenza A, PCR Not Detected (NotDetected); Influenza B, PCR Not Detected (NotDetected)
--- NOTE | 2022-09-18 17:41 | ECG_ITS ---
APPROVED REPORT Exam: Resting ECG HR:104 bpm ECG Measurements Heart Rate 104 AXES TX 165 P 72 QRSd 94 QRS -50 QT 347 T 59 QTc 408 Conclusion SINUS TACHYCARDIA LEFT ANTERIOR FASCICULAR BLOCK [QRS AXIS <= -45, QR IN I, RS IN II] POSSIBLE ANTERIOR MYOCARDIAL INFARCTION , PROBABLY OLD [30 ms Q WAVE IN V3/V4, OR R < 0.2 mV IN V4] ABNORMAL ECG UNCONFIRMED REPORT Electronically signed by : Henry Macias MD 09/19/2022 20:48:04
[2022-09-18 17:56] LABS: Microscopic, Urine URINE MICROSCOPIC (MICROSCOPIC)
[2022-09-18 17:57] LABS: Appearance,Urine CLEAR (Clear); Blood, Urine TRACE-I (Negative); Color,Urine YELLOW (Yellow); Glucose,Urine (UA) 1+ (Negative); Ketones,Urine 2+ (Negative); Leukocyte Esterase,Urine Negative (Negative); Nitrate,Urine Negative (Negative); Protein,Urine 3+ (Negative); Specific Gravity, Urine >= 1.030 (1.005-1.030)
--- NOTE | 2022-09-18 18:07 | PC.NURSE ---
PT GONE TO CT
[2022-09-18 18:09] LABS: Lactic Acid 4.4 mmol/L (0.7-2.1)
[2022-09-18 18:10] LABS: Bilirubin,Urine 1+ (Negative)
[2022-09-18 18:26] LABS: Bacteria,Urine Trace /lpf; RBC,Urine Occasional #/hpf (0-3); WBC,Urine Occasional #/hpf (0-3)
--- NOTE | 2022-09-18 19:24 | PC.NURSE ---
pt walked to restroom no assistance
[2022-09-18 20:18] LABS: Anion Gap 15.8 mEq/L (5-15); Blood Urea Nitrogen 7 mg/dl (7-17); Calcium 8.9 mg/dl (8.4-10.2); Carbon Dioxide 19 mmol/L (22.0-30.0); Chloride 107 mmol/L (98-107); Creatinine Clearance Estimated 81 mL/min (50-200); Estimated Glomerular Filt Rate 123 ml/min (>60); GFR (African American) 149 ML/MIN (>60); Glucose 218 mg/dl (74-100); Potassium 3.8 mmoL/L (3.5-5.1); Sodium 138 mmol/L (136-145)
[2022-09-18 20:22] LABS: Lactic Acid 4.5 mmol/L (0.7-2.1)
--- NOTE | 2022-09-18 20:36 | PC.NURSE ---
Spoke to Siri with [facility] for Vanc and Cefepime dosing
[2022-09-18 20:48] LABS: Troponin I < 0.01 ng/ml (0.00-0.034)
--- NOTE | 2022-09-18 20:59 | PC.NURSE ---
Report called to K[facility] 2nd floor transport
[2022-09-18 21:07] LABS: Hemoglobin A1C 8.3 % (4.0-6.0)
--- NOTE | 2022-09-18 21:14 | PC.NURSE ---
Pt. arrived to floor by wheelchair at this time.
[2022-09-18 21:28] LABS: Thyroid Stimulating Hormone 3.59 uIU/mL (0.465-4.68)
--- NOTE | 2022-09-18 21:38 | EXP.HP ---
History of Present Illness *Admission Date: 09/18/22 *Reason for visit:: SIRS *History of present illness: 66 year old female who presented to the ED from her PCP for tachycardia. She went to her PCP today for c/o CP (since ), ROBINS, cough and fever. She had a known covid exposure Sunday. Her covid test is negative. PMHX of sepsis in 2021 from obstructing kidney stone, htn, dm, fatty liver, endometrial cancer, and hypothyroidism. The patient states that she proceeded with visiting her PCP today due to the CP, nausea, vomiting, and diarrhea. Her cardiac workup is unremarkable. She is sinus tachycardia on the EKG without st changes. Chest xray is unremarkable for cardiomegly or pneumonia. Her intial lactate was 4.4. After 2 L of fluid in the ED her lactic was 4.5. She presents with a leukocytosis of 20.9. Urine is unremarkable and her CTA of her chest, abd, and pelvis is unremarkable for infection. Blood cultures were obtained and she was started on broad spectrum antibiotics in the ED. The ED physician spoke with the hospitalist team for further medical management. The pt was admitted to the medical floor. She appears in no acute distress. No nausea, vomiting, diarrhea, CP pain, or abdominal pain. CVA tenderness is noted of the right flank. Her abd CTA demonstrates nonobstructing bilateral intrarenal calculi. She states she felt pain there and went to the chiropractor. Pain in right flank has slowly been reoccurring since today. Will continue to treat with broad spectrum antibiotics and monitor for sepsis. She meets SIRS criteria with a WBC of 20.9 and tachycardia of 132. Will continue to trend her lactate level. [facility] Disclaimer: The information contained in this section may have been updated after the patient was seen, as this information can be updated by other users. 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 Ankle fracture, right Bladder cancer Cholelithiases Dermatitis Dermatitis Dermatitis Diabetes mellitus, type 2 DVT (deep venous thrombosis) Endometrial cancer GERD (gastroesophageal reflux disease) Hypertension Hypothyroidism Kidney stones Left wrist fracture UTI (urinary tract infection) Surgical History H/O bilateral oophorectomy H/O total hysterectomy History of cholecystectomy S/P hernia surgery Family History Family history of GERD Breast cancer Endometrial cancer Hypertension 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 Smoking Status: Never smoker alcohol intake: never substance use type: denies use current occupational status: employed and other Travel in the last 8 weeks: None household members: family housing: house lives independently: No education level: high school service: No pets and animals: No Review of Systems Review of Systems Review of systems:: pertinent systems reviewed and negative unless documented below Constitutional Constitutional: Reports body ache(s), Reports chills, Reports fatigue and Reports malaise Eyes Eyes: Reports system reviewed and no additional complaints, except as documented ENT Ears, Nose, Mouth, and Throat: Reports system reviewed and no additional complaints, except as documented *Cardiovascular Cardiovascular: Reports chest pain *Respiratory Respiratory: Reports system reviewed and no additional complaints, except as documented *Gastrointestinal Gastrointestinal: Reports loose stools, Reports nausea and Reports vomiting *Genitourinary Genitourinary: Reports system reviewed and no additional complaints, except as documented *Musculoskeletal Musculoskeletal: Reports system reviewed and no additional complaints, except as documented Integumentary/Breasts Skin/Breast: Reports system reviewed and no additional complaints, except as documented *Neurologic Neurologic: Reports system revi
[2022-09-18 21:50] LABS: Reflex Lactic Add Lactic Reflex
[2022-09-18 22:00] LABS: POC Glucose,Bedside 242 (70-110)
--- NOTE | 2022-09-18 22:22 | PC.NURSE ---
contacted nightwatch, confirmed with juve vancomycin order per apr that was nurse prepared by walker garcia rn and verified with jordyn olivares rn
[2022-09-18 22:59] LABS: Lactic Acid Follow Up (RFLX 1) 3.9 mmol/L (0.7-2.1)
--- NOTE | 2022-09-18 23:20 | PC.NURSE ---
pt c/o minor left sided cp, within minutes ambulated to the bathroom, burped and stated she felt relief but had some heartburn.
[2022-09-19] VITALS: BP 101/57; PULSE 65; RESP 18; TEMP 37.1; O2SAT 95
[2022-09-19 00:01] LABS: Troponin I < 0.01 ng/ml (0.00-0.034)
[2022-09-19 04:00] VITALS: BP 108/62; PULSE 78; RESP 18; TEMP 36.9; O2SAT 93; BMI 38.2
[2022-09-19 05:17] LABS: POC Glucose,Bedside 174 (70-110)
--- NOTE | 2022-09-19 06:23 | EXP.SEPSISRE ---
[facility] Tissue Perfusion Eval Sepsis Re-Evaluation Performed: Yes Date Performed: 09/19/22 Time Performed: 00:30
--- NOTE | 2022-09-19 07:52 | HMH.PHAINT1 ---
Pharmacy Intervention Comments: Patient's home medication were verified through patient. -Kenyon Enriquez, PharmD student
--- NOTE | 2022-09-19 07:54 | EXP.PHA.CONS ---
Pharmacy Consult Date: 09/19/22 Time: 07:54 Referring provider: DR PINEDA Reason for Consult:: VANCOMYCIN DOSING CONSULT Allergies Allergy/AdvReac Type Severity Reaction Status Date / Time chlordiazepoxide Allergy Unknown Verified 09/18/22 16:47 [From LIBRAX (WITH CLIDINIUM)] clidinium Allergy Unknown Verified 09/18/22 16:47 [From LIBRAX (WITH CLIDINIUM)] iodine [IODINE] Allergy Unknown Verified 09/18/22 16:47 Penicillins [PENICILLINS] Allergy Unknown Rash Verified 09/18/22 16:47 Sulfa (Sulfonamide Allergy Unknown Rash Verified 09/18/22 16:47 Antibiotics) [SULFA (SULFONAMIDE ANTIBIOTICS)] morphine Allergy Chest Pain Verified 09/18/22 16:47 Home Medications Medication Instructions Recorded Confirmed Type glimepiride 4 mg tablet See Rx Instructions .Route 01/27/18 09/19/22 History .COMPLEX Diabetes levothyroxine 88 mcg tablet 88 mcg PO DAILY hypothyroidism 01/27/18 09/19/22 History metformin 1,000 mg tablet 1,000 mg PO BID Diabetes 11/29/21 09/18/22 History semaglutide 14 mg tablet (Rybelsus) See Rx Instructions .Route 11/29/21 09/19/22 History .COMPLEX Diabetes amlodipine 5 mg tablet 5 mg PO DAILY hypertension 09/18/22 09/18/22 History New Prescriptions to Start Prescriptions: Height: 1.63 m Weight: 101.786 kg Laboratory Results:: Laboratory Results - last 24 hr 09/18/22 16:35: WBC 20.9 H*, RBC 5.81 H, Hgb 16.2, Hct 51.1 H, MCV 87.9, MCH 27.9, MCHC 31.7 L, RDW 14.0, Plt Count 227, MPV 10.0, Neut % (Auto) 84.5 H, Lymph % (Auto) 9.4 L, [place] % (Auto) 4.4, Eos % (Auto) 1.4, Baso % (Auto) 0.3, Neut # (Auto) 17.6 H, Lymph # (Auto) 2.0, [place] # (Auto) 0.9, Eos # (Auto) 0.3, Baso # (Auto) 0.1, Total Counted 100, Neutrophils % (Manual) 82 H, Band Neutrophils % 1.0, Lymphocytes % (Manual) 13, Monocytes % (Manual) 4, Platelet Estimate Normal, RBC Morphology Normal, PT 11.0, INR 1.02, APTT 28.4, Sodium 142, Potassium 3.7, Chloride 104, Carbon Dioxide 21 L, Anion Gap 20.7 H, BUN 7, Creatinine 0.70, Estimated Creat Clear 81, Estimated GFR 83, Est GFR ( Amer) 101, Glucose 221 H, Hemoglobin A1c 8.3 H, Calcium 10.5 H, Total Bilirubin 0.7, Direct Bilirubin 0.0, Conjugated Bilirubin 0.0, Indirect Bilirubin 0.7, Unconjugated Bilirubin 0.7, AST 63 H, ALT 45, Alkaline Phosphatase 130 H, Troponin I < 0.01, NT-Pro-B Natriuret Pep 42.1, Total Protein 8.6 H, Albumin 4.8, Lipase 144, TSH 3.59 09/18/22 17:25: SARS-CoV-2 (PCR) Not detected, Influenza A Untype (PCR) Not detected, Influenza Type B (PCR) Not detected 09/18/22 17:45: Lactate 4.4 H 09/18/22 17:51: Urine Color Yellow, Urine Appearance Clear, Urine pH 6.0, Ur Specific [place] >= 1.030, Urine Protein 3+, Urine Glucose (UA) 1+, Urine Ketones 2+, Urine Blood Trace-i, Urine Nitrate Negative, Urine Bilirubin 1+ A, Urine Urobilinogen 1.0, Ur Leukocyte Esterase Negative, Urine RBC Occasional, Urine WBC Occasional, Ur Squamous Epith Cells 3-5, Urine Bacteria Trace 09/18/22 20:00: Sodium 138, Potassium 3.8, Chloride 107, Carbon Dioxide 19 L, Anion Gap 15.8 H, BUN 7, Creatinine 0.50 L D, Estimated Creat Clear 81, Estimated GFR 123, Est GFR ( Amer) 149 D, Glucose 218 H, Lactate 4.5 H, Calcium 8.9, Troponin I < 0.01 09/18/22 21:51: POC Glucose 242 H 09/18/22 22:34: Lactate 3.9 H 09/18/22 23:15: Troponin I < 0.01 09/19/22 05:08: POC Glucose 174 H 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: 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 (Updated 09/18/22 @ 23:00 by Levi Li RN) Ankle fracture, right Bladder cancer Cholelithiases Dermatitis Dermatitis Dermatitis Diabetes mellitus, type 2 DVT (deep venous thrombosis) Endometrial cancer GERD (gastroesophageal reflux disease) Hypertension Hypothyroidism Kidney stones Left wrist fracture UTI (urinary tract infection) Assessment and Plan Assessment and plan all Dx Assessment and Plan for all problems:: Pharmacokinetic dosing service Objective: Age: 66 yo Serum creatinine: 1 mg/dL Height
[2022-09-19 08:00] VITALS: BP 122/47; PULSE 80; RESP 17; TEMP 37; O2SAT 96
[2022-09-19 09:22] LABS: Basophils % 0.3 % (0.1-2.0); Eosinophils # 0.2 K/mm3 (0.0-0.4); Eosinophils % 3.3 % (0.1-12.0); Hematocrit 40.2 % (37.0-47.0); Lymphocytes # 1.5 K/mm3 (0.7-4.5); Lymphocytes % 26.4 % (10-50); Mean Corpuscular Hemoglobin 28.5 pg (27.0-31.2); Mean Corpuscular Volume 88.9 fl (81-99); Mean Platelet Volume 10.8 fl (7.4-10.4); Monocytes # 0.3 K/mm3 (0.1-1.0); Monocytes % 5.1 % (1.7-9.3); Neutrophils # 3.7 K/mm3 (1.8-7.8); Neutrophils % 64.9 % (37.0-80.0); Platelet Count 133 K/mm3 (142-424); Red Blood Count 4.53 M/mm3 (4.20-5.40); Red Cell Distribution Width 14.1 % (11.5-17.5); White Blood Count 5.7 K/mm3 (4.8-10.8)
[2022-09-19 09:33] LABS: Alanine Aminotransferase 28 U/L (12-78); Albumin Level 3.4 g/dl (3.5-5.0); Albumin/Globulin Ratio 1.1 (1.1-1.8); Alkaline Phosphatase 80 U/L (38-126); Aspartate Amino Transferase 35 U/L (14-36); Bilirubin,Total 0.6 mg/dl (0.2-1.3); Blood Urea Nitrogen 7 mg/dl (7-17); Calcium 9.2 mg/dl (8.4-10.2); Carbon Dioxide 27 mmol/L (22.0-30.0); Chloride 107 mmol/L (98-107); Creatinine Clearance Estimated 88 mL/min (50-200); Estimated Glomerular Filt Rate 100 ml/min (>60); GFR (African American) 121 ML/MIN (>60); Glucose 249 mg/dl (74-100); Magnesium 1.7 mg/dl (1.6-2.3); Sodium 141 mmol/L (136-145); Total Protein,Serum 6.4 g/dl (6.3-8.2)
[2022-09-19 10:35] LABS: POC Glucose,Bedside 232 (70-110)
[2022-09-19 12:59] VITALS: BMI 38.2
[2022-09-19 13:43] LABS: Adenovirus F 40/41, stool Not Detected (NotDetected); Astrovirus Not Detected (NotDetected); Campylobacter Not Detected (NotDetected); Clostridium Difficile A/B, PCR Not Detected (NotDetected); Cryptosporidium Not Detected (NotDetected); Cyclospora Cayetanesis Not Detected (NotDetected); Entamoeba histolytica Not Detected (NotDetected); Enteroaggregative E coli Not Detected (NotDetected); Enteropathogenic E coli Not Detected (NotDetected); Enterotoxigenic E coli Not Detected (NotDetected); Giardia lamblia Not Detected (NotDetected); Norovirus Not Detected (NotDetected); Plesimonas Shigalloides, PCR Not Detected (NotDetected); Rotavirus A Not Detected (NotDetected); Salmonella, PCR Not Detected (NotDetected); Sapovirus Not Detected (NotDetected); Shiga-like toxin E coli Not Detected (NotDetected); Shigella Enterovasive E coli Not Detected (NotDetected); Vibrio Cholerae Not Detected (NotDetected); Vibrio, PCR Not Detected (NotDetected); Yersinia Entercolitica, PCR Not Detected (NotDetected)
[2022-09-19 14:30] LABS: Hemoglobin 12.9 g/dL (12.2-16.2)
[2022-09-19 15:20] VITALS: BP 118/73; PULSE 76; RESP 18; TEMP 36.9; O2SAT 98
[2022-09-19 16:12] LABS: POC Glucose,Bedside 353 (70-110)
--- NOTE | 2022-09-19 18:43 | EXP.ACUTE.PN ---
Subjective *Date: 09/19/22 *Time: 19:58 Interval history: Patient feeling much better this morning. Still having diarrhea. Able to give stool sample this morning. Nausea but no nubia vomiting. Denies any fevers overnight. Reviewed labs, improved this morning. Medical Exam Vital signs and Labs for Last 24 Hours: Vital Signs Temp Pulse Pulse Resp BP BP Pulse Ox 09/19/22 17:10 09/19/22 16:00 09/19/22 15:20 98.5 F 76 18 118/73 98 09/19/22 13:48 09/19/22 12:04 09/19/22 11:00 09/19/22 08:28 09/19/22 08:00 98.6 F 80 17 122/47 L 96 09/19/22 04:00 98.4 F 78 18 108/62 L 93 L 09/19/22 01:27 09/19/22 00:00 98.8 F 65 18 101/57 L 95 09/19/22 06:17 09/19/22 04:40 09/19/22 03:00 09/19/22 01:00 09/18/22 23:00 09/18/22 21:00 09/18/22 21:56 98.5 F 73 19 163/65 H 96 09/18/22 21:00 96 H 148/79 H 94 L 09/18/22 21:06 98.3 F 98 H 19 148/79 H 09/18/22 20:30 90 13 119/61 96 09/18/22 20:00 101 H 132/78 96 09/18/22 19:29 98 H 140/74 97 09/18/22 19:00 101 H 117/66 96 O2 Del Method 09/19/22 17:10 Room Air 09/19/22 16:00 Room Air 09/19/22 15:20 Room Air 09/19/22 13:48 Room Air 09/19/22 12:04 Room Air 09/19/22 11:00 Room Air 09/19/22 08:28 Room Air 09/19/22 08:00 Room Air 09/19/22 04:00 Room Air 09/19/22 01:27 Room Air 09/19/22 00:00 Room Air 09/19/22 06:17 Room Air 09/19/22 04:40 Room Air 09/19/22 03:00 Room Air 09/19/22 01:00 Room Air 09/18/22 23:00 Room Air 09/18/22 21:00 Room Air 09/18/22 21:56 Room Air 09/18/22 21:00 Room Air 09/18/22 21:06 Room Air 09/18/22 20:30 Room Air 09/18/22 20:00 Room Air 09/18/22 19:29 Room Air 09/18/22 19:00 Room Air Intake and Output 09/19/22 09/19/22 09/19/22 07:59 15:59 23:59 Intake Total 120 / 1370 770 / 1370 480 / 1370 Output Total 0 / 0 0 / 0 Balance 120 / 1370 770 / 1370 480 / 1370 Intake: Intake, Oral Amount 120 / 1320 720 / 1320 480 / 1320 Intake, Total IV Amount 50 / 50 Cefepime HCl 1 gm In 0.9 % 50 / 50 Sodium Chloride 50 ml @ 100 mls /hr IV Q12H [facility] Rx#:[id number] Output: Output, Urine Amount 0 / 0 0 / 0 Other: Number of Unmeasured Voids 1 2 Number of Bowel Movements 2 Weight 101.786 kg 101.786 kg Patient Weight 09/19/22 23:59 Weight 101.786 kg Laboratory Results - last 24 hr 09/18/22 16:35: Hemoglobin A1c 8.3 H, TSH 3.59 09/18/22 20:00: Sodium 138, Potassium 3.8, Chloride 107, Carbon Dioxide 19 L, Anion Gap 15.8 H, BUN 7, Creatinine 0.50 L D, Estimated Creat Clear 81, Estimated GFR 123, Est GFR ( Amer) 149 D, Glucose 218 H, Lactate 4.5 H, Calcium 8.9, Troponin I < 0.01 09/18/22 21:51: POC Glucose 242 H 09/18/22 22:34: Lactate 3.9 H 09/18/22 23:15: Troponin I < 0.01 09/19/22 05:08: POC Glucose 174 H 09/19/22 08:58: WBC 5.7 D, RBC 4.53, Hgb 12.9 D, Hct 40.2, MCV 88.9, MCH 28.5, MCHC 32.0, RDW 14.1, Plt Count 133 L D, MPV 10.8 H, Neut % (Auto) 64.9, Lymph % (Auto) 26.4, [place] % (Auto) 5.1, Eos % (Auto) 3.3, Baso % (Auto) 0.3, Neut # (Auto) 3.7, Lymph # (Auto) 1.5, [place] # (Auto) 0.3, Eos # (Auto) 0.2, Baso # (Auto) 0.0, Sodium 141, Potassium 4.0, Chloride 107, Carbon Dioxide 27, Anion Gap 11.0, BUN 7, Creatinine 0.60, Estimated Creat Clear 88, Estimated GFR 100, Est GFR ( Amer) 121, Glucose 249 H, Calcium 9.2, Magnesium 1.7, Total Bilirubin 0.6, AST 35 D, ALT 28 D, Alkaline Phosphatase 80, Total Protein 6.4 D, Albumin 3.4 L D, Globulin 3.0, Albumin/Globulin Ratio 1.1 09/19/22 10:29: POC Glucose 232 H 09/19/22 16:05: POC Glucose 353 H* I & O for Labs for Last 24 Hours: Intake & Output 09/16/22 09/17/22 09/18/22 09/19/22 23:59 23:59 23:59 23:59 Intake Total 2450 / 2570 1370 / 1370 Output Total 0 / 0 0 / 0 Balance 2450 / 2570 1370 / 1370 Weight 94.347 kg 101.786 kg Constitutional: Present
[2022-09-19 20:00] VITALS: BP 133/66; PULSE 81; RESP 18; TEMP 36.6; O2SAT 99
[2022-09-19 20:38] LABS: POC Glucose,Bedside 264 (70-110)
[2022-09-20 04:00] VITALS: BP 112/67; PULSE 80; RESP 18; TEMP 36.6; O2SAT 96; BMI 31.5
[2022-09-20 05:08] LABS: POC Glucose,Bedside 201 (70-110)
--- NOTE | 2022-09-20 05:46 | PC.NURSE ---
no acute changes t/o shift. POC ongoing. cb within reach. bed locked/lowest position.
[2022-09-20 06:49] LABS: Basophils % 0.2 % (0.1-2.0); Eosinophils # 0.3 K/mm3 (0.0-0.4); Eosinophils % 5.1 % (0.1-12.0); Hematocrit 37.3 % (37.0-47.0); Hemoglobin 12.1 g/dL (12.2-16.2); Lymphocytes # 1.5 K/mm3 (0.7-4.5); Lymphocytes % 30.4 % (10-50); Mean Corpuscular HGB Conc 32.5 g/dL (31.8-35.4); Mean Corpuscular Hemoglobin 28.2 pg (27.0-31.2); Mean Corpuscular Volume 86.7 fl (81-99); Monocytes # 0.3 K/mm3 (0.1-1.0); Monocytes % 6.5 % (1.7-9.3); Neutrophils # 2.9 K/mm3 (1.8-7.8); Neutrophils % 57.8 % (37.0-80.0); Platelet Count 120 K/mm3 (142-424)
[2022-09-20 06:53] LABS: Alanine Aminotransferase 26 U/L (12-78); Albumin Level 3.2 g/dl (3.5-5.0); Albumin/Globulin Ratio 1.1 (1.1-1.8); Alkaline Phosphatase 75 U/L (38-126); Anion Gap 9.6 mEq/L (5-15); Aspartate Amino Transferase 40 U/L (14-36); Bilirubin,Total 0.2 mg/dl (0.2-1.3); Blood Urea Nitrogen 6 mg/dl (7-17); Calcium 9.2 mg/dl (8.4-10.2); Carbon Dioxide 26 mmol/L (22.0-30.0); Chloride 108 mmol/L (98-107); Creatinine Clearance Estimated 72 mL/min (50-200); Estimated Glomerular Filt Rate 159 ml/min (>60); GFR (African American) 193 ML/MIN (>60); Globulin 2.8 g/dL (1.3-3.2); Glucose 209 mg/dl (74-100); Magnesium 1.6 mg/dl (1.6-2.3); Potassium 3.6 mmoL/L (3.5-5.1); Sodium 140 mmol/L (136-145)
--- NOTE | 2022-09-20 07:01 | EXP.DC.SUM ---
General Admission date:: 09/18/22 Discharge date: 09/20/22 HPI HPI HPI: 66 year old female who presented to the ED from her PCP for tachycardia. She went to her PCP today for c/o CP (since ), ROBINS, cough and fever. She had a known covid exposure Sunday. Her covid test is negative. PMHX of sepsis in 2021 from obstructing kidney stone, htn, dm, fatty liver, endometrial cancer, and hypothyroidism. The patient states that she proceeded with visiting her PCP today due to the CP, nausea, vomiting, and diarrhea. Her cardiac workup is unremarkable. She is sinus tachycardia on the EKG without st changes. Chest xray is unremarkable for cardiomegly or pneumonia. Her intial lactate was 4.4. After 2 L of fluid in the ED her lactic was 4.5. She presents with a leukocytosis of 20.9. Urine is unremarkable and her CTA of her chest, abd, and pelvis is unremarkable for infection. Blood cultures were obtained and she was started on broad spectrum antibiotics in the ED. The ED physician spoke with the hospitalist team for further medical management. The pt was admitted to the medical floor. She appears in no acute distress. No nausea, vomiting, diarrhea, CP pain, or abdominal pain. CVA tenderness is noted of the right flank. Her abd CTA demonstrates nonobstructing bilateral intrarenal calculi. She states she felt pain there and went to the chiropractor. Pain in right flank has slowly been reoccurring since today. Will continue to treat with broad spectrum antibiotics and monitor for sepsis. She meets SIRS criteria with a WBC of 20.9 and tachycardia of 132. Will continue to trend her lactate level. Hospital Course Hospital Course Hospital Course: 66 year old female who presented to the ED from her PCP for tachycardia. She went to her PCP today for c/o CP (since ), ROBINS, cough and fever. She had a known covid exposure Sunday. The patient states that she proceeded with visiting her PCP today due to the CP, nausea, vomiting, and diarrhea. Her cardiac workup is unremarkable. She is sinus tachycardia on the EKG without st changes. Chest xray is unremarkable for cardiomegly or pneumonia. Her intial lactate was 4.4. After 2 L of fluid in the ED her lactic was 4.5. She presented with a leukocytosis of 20.9. Urine is unremarkable and her CTA of her chest, abd, and pelvis is unremarkable for infection. Blood cultures were obtained and she was started on broad spectrum antibiotics in the ED. patient's symptoms defervesced over the first night in the hospital. Continue to monitor her for 48 hours while awaiting cultures. No blood culture, urine culture, stool culture were positive. No focal source for infection. Discontinued antibiotics. As she is stable at this time, will discharge home with plan to see PCP in the next 1 to 2 weeks. Problems addressed as follows: SIRS -leukocytosis of 20.9 and tachycardia of 132 on admission. Patient had been having nausea and vomiting. White cell count normalized after admission. Repeat labs during admission showed normalization of electrolytes and kidney function. Cultures were negative at 48 hours. There is concern for gastroenteritis and diarrhea panel was obtained. It was negative for all analytes. Discontinued antibiotics after 48 hours of no focal source of infection. Patient back to baseline function. Suspect symptoms are secondary to her nausea and vomiting. GASTROENTERITIS DM -SSI insulin ordered. A1c 8.3 on admission. She is been having loose stools for quite some time but they were worse recently. Started on a fiber supplement. Recommended she reevaluate her outpatient diabetes regimen as her metformin and Rybelsus both have side effects of nausea, vomiting, diarrhea. Would benefit from a change in medications to see if this improves her GI symptoms and control. No further vomiting during admission. HYPOTHYROIDISM HTN OBESITY -Continue home levothyroxine 88 mcg. TSH pending -Continue amlodipine 5mg
[2022-09-20 08:00] VITALS: BP 127/71; PULSE 80; RESP 18; TEMP 36.1; O2SAT 95
--- NOTE | 2022-09-20 11:59 | HMH.PHAINT1 ---
Pharmacy Intervention Comments: Discharge medications reviewed with patient . - No new medications Kenyon Enriquez, PharmD student
--- NOTE | 2022-09-21 15:11 | CARE MANAGER ---
Called and spoke with patient in regards to recent discharge. Patient stated that she is feeling better and was aware of her f/u appt. No questions or concerns at time of call.
== END 2022-09-20 12:34 | disposition home or self-care (01) ==
LOC: ER 18:08 → 2ND 20:34
PROVIDERS: Internal Medicine Adolescent Medicine; Nurse Practitioner Critical Care Medicine; Admitting Provider Internal Medicine; Emergency Provider Emergency Medicine; PCP Family Medicine; Visit Provider Internal Medicine
DX: K52.9 Noninfective gastroenteritis and colitis, unspecified; E11.9 Type 2 diabetes mellitus without complications; I10 Essential (primary) hypertension; E03.9 Hypothyroidism, unspecified; E66.9 Obesity, unspecified; Z79.899 Other long term (current) drug therapy; Z79.4 Long term (current) use of insulin; R06.9 Unspecified abnormalities of breathing
CPT/HCPCS: 36415; 71045; 71275; 74177; 80048; 80053; 80076; 81001; 82962; 83036; 83605; 83690; 83735; 83880; 84443; 84484; 85007; 85025; 85610; 85730; 87040; 87507; 87636; 93005; 99285; G0378; J0692; J2405; J3370; Q9967

== ENCOUNTER 2023-01-02 15:19 | Emergency (ER) | payer MEDICARE, OTHER, SELFPAY ==
[2023-01-02 15:35] VITALS: BP 138/72; PULSE 132; RESP 18; TEMP 36.8; O2SAT 97; BMI 36.8
--- NOTE | 2023-01-02 15:54 | EXP.UTC ---
Discharge Plan Disposition Patient Disposition: Home, Self-Care Prescriptions Prescriptions: New ondansetron 4 mg tablet,disintegrating 4 mg PO Q6H PRN (Reason: nausea and vomiting) Qty: 10 0RF No Action metformin 1,000 mg tablet 1,000 mg PO BID Patient Comments: TAKE 1 TABLET BY MOUTH TWICE DAILY WITH A MEAL Rx Instructions: after lunch and supper Rybelsus 14 mg tablet See Rx Instructions .ROUTE .COMPLEX Patient Comments: TAKE 1 TABLET BY MOUTH EVERY DAY 30 MINUTES BEFORE FIRST FOOD OR BEVERAGE OR MEDICINE OF THE DAY Rx Instructions: TAKE 14 MG BY MOUTH EVERY DAY 30 MINUTES BEFORE FIRST FOOD OR BEVERAGE OR MEDICINE OF THE DAY amlodipine 5 mg tablet 5 mg PO DAILY Patient Comments: TAKE 1 TABLET BY MOUTH EVERY DAY levothyroxine 88 MCG tablet 88 mcg PO DAILY glimepiride 4 MG tablet See Rx Instructions .ROUTE .COMPLEX Rx Instructions: 8 mg orally after breakfast or first main meal of the day Referrals Follow up/Referrals: Edith King MD [Primary Care Provider] - See instructions Activity Restrictions/Add. Instructions Additional Instructions/Restrictions: Call your family doctor to establish care for this visit to the emergency department and schedule follow-up within 48 hours to ensure improvement. If you have any worsening of your condition or any other concerning signs or symptoms, return to the emergency department or your primary care doctor for further evaluation. Zofran every 6 hours as needed for nausea and vomiting, dissolve under tongue. Simethicone will also help with bloating feeling. Clinical Impressions Clinical Impression: Vomiting and diarrhea Instructions Patient Instructions: DI for Diarrhea and Traveler's Diarrhea -- Adult, DI for Diarrhea and Traveler's Diarrhea -- Child, DI for Nausea -- Adult, DI for Nausea -- Child Discharge ED Provider: Jurgen Beebe [facility] General Chief complaint: Nausea/Vomiting/Diarrhea Stated complaint: vomiting, diarrhea Mode of Arrival: Ambulatory Source of Information: Patient Limitations: No Limitations Time Seen by Provider: 01/02/23 15:54 Description of Symptoms (Recalled from Triage Doc. by RN): PATIENT C/O VOMITING, DIARRHEA, FEVER, AND STOMACH CRAMPS AFTER EATING AT A [employer] YESTERDAY HEENT Symptoms (Recalled from RN notes): No Resp Symptoms (Recalled from RN notes): No Skin Symptoms (Recalled from RN notes): No MS Symptoms (Recalled from RN notes): No Functional Status (Recalled from RN notes): WNL History of Present Illness Provider Complaint: Patient states that she is not sure if she may have got food poison or if she has an infection in her stomach again States that she started yesterday feeling feverish, having cramping in her stomach, Nausea, vomiting and diarrhea and feels like her heart is racing States that she hasnt been able to keep anything down not even water and feeling weak States that she has done this several times before and had to be admitted Related Data Home Medications Medication Instructions Recorded Confirmed glimepiride 4 mg tablet See Rx Instructions .Route 01/27/18 01/02/23 .COMPLEX Diabetes levothyroxine 88 mcg tablet 88 mcg PO DAILY hypothyroidism 01/27/18 01/02/23 metformin 1,000 mg tablet 1,000 mg PO BID Diabetes 11/29/21 01/02/23 semaglutide 14 mg tablet (Rybelsus) See Rx Instructions .Route 11/29/21 01/02/23 .COMPLEX Diabetes amlodipine 5 mg tablet 5 mg PO DAILY hypertension 09/18/22 01/02/23 Previous Rx's Medication Instructions Recorded ondansetron 4 mg disintegrating 4 mg PO Q6H PRN nausea and 01/02/23 tablet vomiting #10 tabs Allergies Allergy/AdvReac Type Severity Reaction Status Date / Time chlordiazepoxide Allergy Unknown Verified 09/18/22 16:47 [From LIBRAX (WITH CLIDINIUM)] clidinium Allergy Unknown Verified 09/18/22 16:47 [From LIBRAX (WITH CLIDINIUM)] iodine [IODINE] Allergy Unknown Veri
[2023-01-02 16:07] LABS: POC Glucose,Bedside 302 (70-110)
[2023-01-02 17:02] VITALS: BP 145/83; PULSE 107; O2SAT 97
[2023-01-02 17:09] VITALS: BP 145/83; PULSE 107; RESP 16; O2SAT 98; BMI 33.7
--- NOTE | 2023-01-02 17:11 | PC.NURSE ---
pt is unable to urinate, aware one is needed
[2023-01-02 17:30] VITALS: BP 156/85; PULSE 107; O2SAT 99
[2023-01-02 17:30] LABS: Basophils % 0.2 % (0.1-2.0); Eosinophils # 0.1 K/mm3 (0.0-0.4); Eosinophils % 0.5 % (0.1-12.0); Hematocrit 46.6 % (37.0-47.0); Hemoglobin 15.6 g/dL (12.2-16.2); Lymphocytes % 6.6 % (10-50); Mean Corpuscular HGB Conc 33.5 g/dL (31.8-35.4); Mean Corpuscular Hemoglobin 29.1 pg (27.0-31.2); Mean Corpuscular Volume 87.1 fl (81-99); Mean Platelet Volume 11.8 fl (7.4-10.4); Monocytes # 0.6 K/mm3 (0.1-1.0); Monocytes % 4.1 % (1.7-9.3); Neutrophils # 13.3 K/mm3 (1.8-7.8); Neutrophils % 88.6 % (37.0-80.0); Platelet Count 181 K/mm3 (142-424); Red Blood Count 5.35 M/mm3 (4.20-5.40); Red Cell Distribution Width 14.2 % (11.5-17.5)
[2023-01-02 17:36] LABS: MANUAL DIFFERENTIAL MANUAL DIFFERENTIAL (MANUAL DIFF)
[2023-01-02 17:48] LABS: Acetone, Serum (Rapid) None Detected (None Detect)
[2023-01-02 17:49] LABS: Chloride 103 mmol/L (98-107); Sodium 136 mmol/L (136-145)
[2023-01-02 17:51] LABS: Blood Urea Nitrogen 9 mg/dl (7-17); Creatinine Clearance Estimated 81 mL/min (50-200); Estimated Glomerular Filt Rate 123 ml/min (>60); GFR (African American) 148 ML/MIN (>60)
[2023-01-02 17:52] LABS: Alanine Aminotransferase 45 U/L (12-78); Albumin Level 4.4 g/dl (3.5-5.0); Albumin/Globulin Ratio 1.4 (1.1-1.8); Alkaline Phosphatase 98 U/L (38-126); Aspartate Amino Transferase 61 U/L (14-36); Bilirubin,Total 1.4 mg/dl (0.2-1.3); Calcium 9.4 mg/dl (8.4-10.2); Carbon Dioxide 21 mmol/L (22.0-30.0); Globulin 3.1 g/dL (1.3-3.2); Glucose 304 mg/dl (74-100); Lipase 137 U/L (23-300); Total Protein,Serum 7.5 g/dl (6.3-8.2)
[2023-01-02 17:56] LABS: Lymphocytes % 11 % (10-50); Monocytes % 1 % (2-9); Neutrophils % 88 % (42-76); Platelet Estimate Normal; RBC Morphology Normal; Total Cells Counted 100
[2023-01-02 18:00] VITALS: BP 155/76; PULSE 100; O2SAT 97
[2023-01-02 18:08] LABS: Troponin I < 0.01 ng/ml (0.00-0.034)
[2023-01-02 18:10] LABS: T4 (Thyroxine) 13.4 ug/dl (5.53-11.0)
[2023-01-02 18:23] LABS: Thyroid Stimulating Hormone 1.31 uIU/mL (0.465-4.68)
[2023-01-02 18:56] LABS: Microscopic, Urine URINE MICROSCOPIC (MICROSCOPIC)
[2023-01-02 19:04] LABS: Appearance,Urine CLEAR (Clear); Bilirubin,Urine 1+ (Negative); Blood, Urine Negative (Negative); Color,Urine YELLOW (Yellow); Glucose,Urine (UA) 3+ (Negative); Ketones,Urine 2+ (Negative); Leukocyte Esterase,Urine Negative (Negative); Nitrate,Urine Negative (Negative); PH,Urine 5.5 (5.0-8.5); Protein,Urine TRACE (Negative); Specific Gravity, Urine 1.025 (1.005-1.030); Urobilinogen,Urine 0.2 EU/dl (0.2)
--- NOTE | 2023-01-02 20:04 | HMH.EDGENADL ---
Discharge Plan Disposition Patient Disposition: Home, Self-Care Prescriptions Prescriptions: New ondansetron 4 mg tablet,disintegrating 4 mg PO Q6H PRN (Reason: nausea and vomiting) Qty: 10 0RF No Action metformin 1,000 mg tablet 1,000 mg PO BID Patient Comments: TAKE 1 TABLET BY MOUTH TWICE DAILY WITH A MEAL Rx Instructions: after lunch and supper Rybelsus 14 mg tablet See Rx Instructions .ROUTE .COMPLEX Patient Comments: TAKE 1 TABLET BY MOUTH EVERY DAY 30 MINUTES BEFORE FIRST FOOD OR BEVERAGE OR MEDICINE OF THE DAY Rx Instructions: TAKE 14 MG BY MOUTH EVERY DAY 30 MINUTES BEFORE FIRST FOOD OR BEVERAGE OR MEDICINE OF THE DAY amlodipine 5 mg tablet 5 mg PO DAILY Patient Comments: TAKE 1 TABLET BY MOUTH EVERY DAY levothyroxine 88 MCG tablet 88 mcg PO DAILY glimepiride 4 MG tablet See Rx Instructions .ROUTE .COMPLEX Rx Instructions: 8 mg orally after breakfast or first main meal of the day Referrals Follow up/Referrals: Edith King MD [Primary Care Provider] - See instructions Activity Restrictions/Add. Instructions Additional Instructions/Restrictions: Call your family doctor to establish care for this visit to the emergency department and schedule follow-up within 48 hours to ensure improvement. If you have any worsening of your condition or any other concerning signs or symptoms, return to the emergency department or your primary care doctor for further evaluation. Zofran every 6 hours as needed for nausea and vomiting, dissolve under tongue. Simethicone will also help with bloating feeling. Clinical Impressions Clinical Impression: Vomiting and diarrhea Instructions Patient Instructions: DI for Diarrhea and Traveler's Diarrhea -- Adult, DI for Diarrhea and Traveler's Diarrhea -- Child, DI for Nausea -- Adult, DI for Nausea -- Child Discharge ED Provider: Jurgen Beebe General Adult HPI General Chief complaint: Nausea/Vomiting/Diarrhea Stated complaint: vomiting, diarrhea Time Seen by Provider: 01/02/23 15:54 Mode of Arrival: Wheelchair Source of Information: Patient and Relative Limitations: No Limitations Description of Symptoms (Recalled from ER Triage Doc. by RN): c/o v/d since yesterday, states she is unable to keep anything down including her medicine. History of Present Illness HPI narrative: 67-year-old female history of diabetes presenting with vomiting and diarrhea. Started 24 hours ago. Nonbloody, nonbilious vomiting, nonbloody diarrhea. Patient feeling weak generally and having palpitations. Unable to tolerate much p.o. intake. Came to the emergency department after visiting urgent care. Related Data Home Medications Medication Instructions Recorded Confirmed glimepiride 4 mg tablet See Rx Instructions .Route 01/27/18 01/02/23 .COMPLEX Diabetes levothyroxine 88 mcg tablet 88 mcg PO DAILY hypothyroidism 01/27/18 01/02/23 metformin 1,000 mg tablet 1,000 mg PO BID Diabetes 11/29/21 01/02/23 semaglutide 14 mg tablet (Rybelsus) See Rx Instructions .Route 11/29/21 01/02/23 .COMPLEX Diabetes amlodipine 5 mg tablet 5 mg PO DAILY hypertension 09/18/22 01/02/23 Previous Rx's Medication Instructions Recorded ondansetron 4 mg disintegrating 4 mg PO Q6H PRN nausea and 01/02/23 tablet vomiting #10 tabs Allergies Allergy/AdvReac Type Severity Reaction Status Date / Time chlordiazepoxide Allergy Unknown Verified 09/18/22 16:47 [From LIBRAX (WITH CLIDINIUM)] clidinium Allergy Unknown Verified 09/18/22 16:47 [From LIBRAX (WITH CLIDINIUM)] iodine [IODINE] Allergy Unknown Verified 09/18/22 16:47 Penicillins [PENICILLINS] Allergy Unknown Rash Verified 09/18/22 16:47 Sulfa (Sulfonamide Allergy Unknown Rash Verified 09/18/22 16:47 Antibiotics) [SULFA (SULFONAMIDE ANTIBIOTICS)] morphine Allergy Chest Pain Verified 09/18/22 16:47 [facility] Disclaimer: The information
[2023-01-02 20:08] LABS: Bacteria,Urine Trace /lpf; WBC,Urine Occasional #/hpf (0-3)
[2023-01-02 20:21] VITALS: BP 134/78; PULSE 98; RESP 16; TEMP 36.6; O2SAT 97
== END 2023-01-02 20:22 | disposition home or self-care (01) ==
LOC: UTC 16:33 → ER 16:52
PROVIDERS: Nurse Practitioner; Emergency Provider Emergency Medicine; PCP Family Medicine
DX: R11.2 Nausea with vomiting, unspecified (principal); R19.7 Diarrhea, unspecified; E11.65 Type 2 diabetes mellitus with hyperglycemia; R00.0 Tachycardia, unspecified; R53.1 Weakness; K21.9 Gastro-esophageal reflux disease without esophagitis; E03.9 Hypothyroidism, unspecified; I10 Essential (primary) hypertension; Z79.84 Long term (current) use of oral hypoglycemic drugs
CPT/HCPCS: 80053; 81001; 82009; 82962; 83690; 83880; 84436; 84443; 84484; 85007; 85025; 96361; 96374; 96376; 99284; J2405

== ENCOUNTER 2023-02-02 16:46 | Emergency (ER) | payer MEDICARE, OTHER, SELFPAY ==
[2023-02-02 17:05] VITALS: BP 144/79; PULSE 76; RESP 18; TEMP 36.9; O2SAT 99; BMI 36.3
[2023-02-02 17:22] LABS: UTC Strep Screen (Rapid) Negative (Negative)
--- NOTE | 2023-02-02 17:37 | EXP.UTC ---
Discharge Plan Disposition Patient Disposition: Home, Self-Care Condition: Good Prescriptions Prescriptions: New azithromycin [Zithromax Z-Nam] 250 mg tablet See Rx Instructions .ROUTE .COMPLEX 5 Days Qty: 6 0RF Rx Instructions: For 250 mg dose pack: take 500 mg today (day 1), then 250 mg for 4 days (days 2-5) No Action metformin 1,000 mg tablet 1,000 mg PO BID Patient Comments: TAKE 1 TABLET BY MOUTH TWICE DAILY WITH A MEAL Rx Instructions: after lunch and supper Rybelsus 14 mg tablet 14 mg PO DAILY Patient Comments: TAKE 1 TABLET BY MOUTH EVERY DAY 30 MINUTES BEFORE FIRST FOOD OR BEVERAGE OR MEDICINE OF THE DAY Rx Instructions: TAKE 14 MG BY MOUTH EVERY DAY 30 MINUTES BEFORE FIRST FOOD OR BEVERAGE OR MEDICINE OF THE DAY amlodipine 5 mg tablet 5 mg PO DAILY Patient Comments: TAKE 1 TABLET BY MOUTH EVERY DAY levothyroxine 88 MCG tablet 88 mcg PO DAILY glimepiride 4 MG tablet 4 mg PO DAILY Rx Instructions: 8 mg orally after breakfast or first main meal of the day Referrals Follow up/Referrals: Edith King MD [Primary Care Provider] - See instructions Activity Restrictions/Add. Instructions Additional Instructions/Restrictions: Take medication as prescribed Follow up with your Family Doctor and/or ENT if no improvement Straight to ER if any life threatening symptoms Return if needed Gargle warm salt water may help with throat irritation Clinical Impressions Clinical Impression: Sore throat Instructions Patient Instructions: Sore Throat Discharge ED Provider: Luisa Ames [facility] [place] HPI General Stated complaint: swollen glands in neck Mode of Arrival: Ambulatory Source of Information: Patient Limitations: No Limitations Time Seen by Provider: 02/02/23 17:37 Description of Symptoms (Recalled from Triage Doc. by RN): PATIENT C/O SWOLLEN, PAINFUL GLANDS TO NECK THAT ARE HOT TO TOUCH X 1 WEEK HEENT Symptoms (Recalled from RN notes): Yes Resp Symptoms (Recalled from RN notes): No Skin Symptoms (Recalled from RN notes): No MS Symptoms (Recalled from RN notes): No Functional Status (Recalled from RN notes): WNL History of Present Illness Provider Complaint: Patient states that she feels like the glands in her neck are infected States that she feels like they area swollen and feels warm to the touch States that she is scheduled for US of her neck soon but today she came in wanting to get something worried she may have a throat infection Related Data Home Medications Medication Instructions Recorded Confirmed glimepiride 4 mg tablet 4 mg PO DAILY Diabetes 01/27/18 02/02/23 levothyroxine 88 mcg tablet 88 mcg PO DAILY hypothyroidism 01/27/18 02/02/23 metformin 1,000 mg tablet 1,000 mg PO BID Diabetes 11/29/21 02/02/23 semaglutide 14 mg tablet (Rybelsus) 14 mg PO DAILY Diabetes 11/29/21 02/02/23 amlodipine 5 mg tablet 5 mg PO DAILY hypertension 09/18/22 02/02/23 Previous Rx's Medication Instructions Recorded azithromycin 250 mg tablet See Rx Instructions PO .COMPLEX 5 02/02/23 (Zithromax Z-Nam) days #6 tabs Allergies Allergy/AdvReac Type Severity Reaction Status Date / Time chlordiazepoxide Allergy Unknown Verified 09/18/22 16:47 [From LIBRAX (WITH CLIDINIUM)] clidinium Allergy Unknown Verified 09/18/22 16:47 [From LIBRAX (WITH CLIDINIUM)] iodine [IODINE] Allergy Unknown Verified 09/18/22 16:47 Penicillins [PENICILLINS] Allergy Unknown Rash Verified 09/18/22 16:47 Sulfa (Sulfonamide Allergy Unknown Rash Verified 09/18/22 16:47 Antibiotics) [SULFA (SULFONAMIDE ANTIBIOTICS)] morphine Allergy Chest Pain Verified 09/18/22 16:47 Worker's Comp Is this a Worker's Comp case?: No [facility] Disclaimer: The information contained in this section may have been updated after the patient was seen, as this information can be updated by other users. 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 (Reviewed 09/19/22 @
[2023-02-02 18:02] VITALS: BP 144/79; PULSE 76; RESP 18; TEMP 36.9; O2SAT 99
== END 2023-02-02 18:04 | disposition home or self-care (01) ==
PROVIDERS: Emergency Provider Nurse Practitioner; PCP Family Medicine
DX: R07.0 Pain in throat (principal); I10 Essential (primary) hypertension; E03.9 Hypothyroidism, unspecified; K21.9 Gastro-esophageal reflux disease without esophagitis; E11.9 Type 2 diabetes mellitus without complications; Z79.84 Long term (current) use of oral hypoglycemic drugs
CPT/HCPCS: 87880; 99212; 99214; G0463

== ENCOUNTER 2023-04-13 14:59 | Observation (INO) | payer MEDICARE, OTHER, SELFPAY ==
[2023-04-13] VITALS (12 sets, daily range): BP systolic 121–175; BP diastolic 63–101; PULSE 101–135; RESP 15–20; TEMP 36.6–36.7; O2SAT 94–98; BMI 32.5
--- NOTE | 2023-04-13 14:59 | ECG_ITS ---
APPROVED REPORT Exam: Resting ECG HR:135 bpm ECG Measurements Heart Rate 135 AXES QRSd 92 QRS -49 QT 296 T 77 QTc 375 Conclusion ATRIAL TACHYCARDIA LEFT ANTERIOR FASCICULAR BLOCK [QRS AXIS <= -45, QR IN I, RS IN II] ABNORMAL ECG Electronically signed by : JAVID BENITEZ, 04/13/2023 15:51:06
--- NOTE | 2023-04-13 15:05 | XR_ITS ---
FINAL REPORT CLINICAL HISTORY: cp, soa COMPARISON: 09/18/2022 FINDINGS: A portable view of the chest was obtained. Cardiac and mediastinal silhouettes are within normal limits. The lungs are clear. There is no pleural effusion or pneumothorax. IMPRESSION: No acute process on this portable exam. Reviewed, Interpreted and Dictated by Olive Lemus MD Transcribed by Jackie Jones Authenticated and [facility]
[2023-04-13] MEDS: ASPIRIN 325MG TABLET 325 MG PO (15:11)
[2023-04-13] MEDS: 0.9 % SODIUM CHLORIDE 1000ML 1,000 ML 999 ML IV (15:11)
--- NOTE | 2023-04-13 15:24 | PC.NURSE ---
xray at [facility]
--- NOTE | 2023-04-13 15:30 | ED_ITS ---
Discharge Plan Disposition Patient Disposition: Admitted Clinical Impressions Clinical Impression: Metabolic acidosis Sepsis Qualifiers: Sepsis type: sepsis due to unspecified organism Sepsis acute organ dysfunction status: with acute organ dysfunction Severe sepsis acute organ dysfunction type: unspecified Severe sepsis shock status: without septic shock Qualified Code(s): A41.9 - Sepsis, unspecified organism; R65.20 - Severe sepsis without septic shock Discharge ED Provider: Jurgen Beebe HPI General Chief Complaint: Chest Pain Stated Complaint: chest pain Time Seen by Provider: 04/13/23 15:01 Mode of Arrival: Ambulatory Source of Information: Patient Limitations: No Limitations Description of Symptoms (Recalled from ER Triage Doc. by RN): Patient states she was at the long-term visiting family when she had something to eat and began to have chest pain. States it feels like gas bubbles and is severe today. States this has been an ongoing issue. History of Present Illness HPI narrative: 67-year-old female history of high tension hyperlipidemia, diabetes, remote history of unprovoked DVT not currently on anticoagulation presenting with multiple complaints. Patient states that for the past couple of months, she has been having a popping/bubbling sound when she bends over and then stands up. It starts in her lower abdomen, radiates up toward her neck. Not associated with any other symptoms. She states that Today, she was at a long-term visiting a family member eating lunch when she started feeling nauseated and has not felt better since. No chest pain, shortness of breath, vomiting, diarrhea, constipation, or diaphoresis. Patient also denies lower extremity swelling, PND, orthopnea, or any other concerns. Related Data Home Medications Medication Instructions Recorded Confirmed glimepiride 4 mg tablet 4 mg PO DAILY Diabetes 01/27/18 02/02/23 levothyroxine 88 mcg tablet 88 mcg PO DAILY hypothyroidism 01/27/18 02/02/23 metformin 1,000 mg tablet 1,000 mg PO BID Diabetes 11/29/21 02/02/23 semaglutide 14 mg tablet (Rybelsus) 14 mg PO DAILY Diabetes 11/29/21 02/02/23 amlodipine 5 mg tablet 5 mg PO DAILY hypertension 09/18/22 02/02/23 Previous Rx's Medication Instructions Recorded azithromycin 250 mg tablet See Rx Instructions PO .COMPLEX 5 02/02/23 (Zithromax Z-Nam) days #6 tabs Allergies Allergy/AdvReac Type Severity Reaction Status Date / Time chlordiazepoxide Allergy Unknown Verified 09/18/22 16:47 [From LIBRAX (WITH CLIDINIUM)] clidinium Allergy Unknown Verified 09/18/22 16:47 [From LIBRAX (WITH CLIDINIUM)] iodine [IODINE] Allergy Unknown Verified 09/18/22 16:47 Penicillins [PENICILLINS] Allergy Unknown Rash Verified 09/18/22 16:47 Sulfa (Sulfonamide Allergy Unknown Rash Verified 09/18/22 16:47 Antibiotics) [SULFA (SULFONAMIDE ANTIBIOTICS)] morphine Allergy Chest Pain Verified 09/18/22 16:47 PFSH [facility] Disclaimer: The information contained in this section may have been updated after the patient was seen, as this information can be updated by other users. 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 Ankle fracture, right Bladder cancer Cholelithiases Dermatitis Dermatitis Dermatitis Diabetes mellitus, type 2 DVT (deep venous thrombosis) Endometrial cancer GERD (gastroesophageal reflux disease) Hypertension Hypothyroidism Kidney stones Left wrist fracture UTI (urinary tract infection) Surgical History H/O bilateral oophorectomy H/O total hysterectomy History of cholecystectomy S/P hernia surgery Family History Family history of GERD Breast cancer Endometrial cancer Hypertension 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 Smoking Status: Never smoker alcohol intake: never substance use type: denies use current occupational status: employed and other Travel in the last 8 weeks: None household members: family housing: house lives independently: No education level: high school service: No pets and animals: No ROS Obtained: Yes All systems reviewed & no additional complaints except as documented Physical Exam General General appearance: alert Neck Neck exam: Present trachea midline Chest Chest inspection: Present normal inspection and symmetric chest wall rise Respiratory Respiratory exam: Present normal lung sounds bilaterally; Absent respiratory distress, wheezes, stridor, accessory muscle use or prolonged expiratory phase Cardiovascular Cardiovascular exam: Present normal rhythm, tachycardia and normal heart sounds; Absent systolic murmur or diastolic murmur Abdominal Exam Abdominal exam: Present soft; Absent distention, tenderness, guarding, rebound or rigidity Extremities Exam Extremities exam: Absent edema Neurological Exam Neurological exam: Present alert, oriented X3 and CN II-XII intact Skin Skin exam: Present warm and dry; Absent cyanosis, diaphoresis or pallor HEART Score HEART Score HEART Score assessment performed?: Yes History (anamnesis): Slightly suspicious ECG: Normal Age: >65 years Risk factors: 3 or more risk factors Troponin: </= normal limit HEART Score: 4 Critical Care Critical Care Time Critical Care Time: Yes (CV) Attestation: On 04/13/23, the high probability of a clinically significant, sudden or life threatening deterioration of the following system(s) required my full and direct attention, intervention and personal management. The time I documented below is in addition to time spent performing reported procedures but includes the following listed in this critical care notation. Total Time Total Critical Care Time: 35 Medical Decision Making Medical Records Medical records reviewed: Yes I reviewed the patient's medical records. Kam Inquiry Pt receiving controlled substance: No Kam was queried for this patient: No Vital Signs Vital Signs: 04/13/23 15:00 04/13/23 15:03 04/13/23 15:30 Temperature Temperature Source Pulse Rate 135 H 124 H Pulse Rate [Radial] 133 H Respiratory Rate 18 20 20 Blood Pressure 136/88 127/69 Blood Pressure [Right Arm] 175/101 H Blood Pressure Mean 104 88 Blood Pressure Mean [Right Arm] 125 Blood Pressure Source [Right Arm] Automatic Cuff Blood Pressure Position [Right Arm] Sitting 02 Sat by Pulse Oximetry 98 97 98 Oxygen Delivery Method Room Air 04/13/23 16:00 04/13/23 16:31 04/13/23 17:00 Temperature Temperature Source Pulse Rate 119 H 116 H 112 H Pulse Rate [Radial] Respiratory Rate 16 18 20 Blood Pressure 133/77 156/94 H 121/75 Blood Pressure [Right Arm] Blood Pressure Mean 109 Blood Pressure Mean [Right Arm] Blood Pressure Source [Right Arm] Blood Pressure Position [Right Arm] 02 Sat by Pulse Oximetry 97 97 97 Oxygen Delivery Method Room Air Room Air 04/13/23 17:30 04/13/23 18:00 04/13/23 18:30 Temperature Temperature Source Pulse Rate 107 H 112 H 116 H Pulse Rate [Radial] Respiratory Rate 18 20 15 Blood Pressure 138/82 140/68 141/72 H Blood Pressure [Right Arm] Blood Pressure Mean 94 Blood Pressure Mean [Right Arm] Blood Pressure Source [Right Arm] Blood Pressure Position [Right Arm] 02 Sat by Pulse Oximetry 96 95 98 Oxygen Delivery Method Room Air Room Air 04/13/23 19:00 04/13/23 19:26 Temperature 98.0 F Temperature Source Oral Pulse Rate 116 H Pulse Rate [Radial] Respiratory Rate 18 18 Blood Pressure 127/63 127/63 Blood Pressure [Right Arm] Blood Pressure Mean 84 Blood Pressure Mean [Right Arm] Blood Pressure Source [Right Arm] Blood Pressure Position [Right Arm] 02 Sat by Pulse Oximetry 97 Oxygen Delivery Method Room Air Lab Data Labs: Lab Results 04/13/23 15:02: WBC 16.1 H, RBC 5.47 H, Hgb 16.3 H, Hct 50.5 H, MCV 92.4, MCH 29.7, MCHC 32.2, RDW 14.5, Plt Count 191, MPV 10.8 H, Neut % (Auto) 77.2, Lymph % (Auto) 16.4, [place] % (Auto) 4.1, Eos % (Auto) 1.7, Baso % (Auto) 0.6, Neut # (Auto) 12.4 H, Lymph # (Auto) 2.6, [place] # (Auto) 0.7, Eos # (Auto) 0.3, Baso # (Auto) 0.1, Total Counted 100, Neutrophils % (Manual) 80 H, Lymphocytes % (Manual) 17, Monocytes % (Manual) 3, Platelet Estimate Normal, RBC Morphology Not Reportable, Hypochromasia 2+, Anisocytosis 1+, D-Dimer 0.36, Sodium 138, Potassium 4.2, Chloride 105, Carbon Dioxide 23, Anion Gap 14.2, BUN 6 L, Creatinine 0.50 L, Estimated Creat Clear 78, Estimated GFR 123, Est GFR ( Amer) 148, Glucose 283 H, Calcium 10.4 H, Magnesium 1.7, Total Bilirubin 0.9, AST 61 H, ALT 41, Alkaline Phosphatase 97, Troponin I < 0.01, NT-Pro-B Natriuret Pep 50.8, Total Protein 7.3, Albumin 4.4, Globulin 2.9, Albumin/Globulin Ratio 1.5, Lipase 138, TSH 2.83, Thyroxine (T4) 14.5 H 04/13/23 15:06: VBG pH 7.42 H, VBG pCO2 33.3 L, VBG pO2 52.6 H, VBG HCO3 21.0 L, VBG Total CO2 22.0 L, VBG O2 Saturation 89.9 H, VBG Base Excess -3.6 L 04/13/23 15:29: VBG Lactic Acid 4.1 H 04/13/23 16:48: Urine Color Yellow, Urine Appearance Clear, Urine pH 6.0, Ur Specific [place] >= 1.030, Urine Protein 2+, Urine Glucose (UA) 2+, Urine Ketones 1+, Urine Blood Negative, Urine Nitrate Negative, Urine Bilirubin 1+ A, Urine Urobilinogen 0.2, Ur Leukocyte Esterase Negative, Urine RBC None, Urine WBC None, Ur Squamous Epith Cells Occasional, Calcium Oxalate Crystal 1+, Urine Bacteria Trace 04/13/23 18:20: Troponin I < 0.01 04/13/23 15:02 04/13/23 15:02 Response Orders (Tests/Meds): ED MEDICATIONS Generic Name Dose Route Start Last Admin Trade Name Greg PRN Reason Stop Dose Admin Vancomycin/PEG/NADA/Lysine/Water 1.25 gm in 250 mls @ 125 mls/hr 04/13/23 17:00 04/13/23 17:18 Vancomycin 1.25gm/250ml (Peg) Premix IV 04/23/23 16:59 125 mls/hr Q12H NICOL Administration Discontinued Medications Generic Name Dose Route Start Last Admin Trade Name Greg PRN Reason Stop Dose Admin Aspirin 325 mg 04/13/23 15:06 04/13/23 15:11 Aspirin 325mg Tablet PO 04/13/23 15:07 325 mg ONCE ONE Administration Diphenhydramine HCl 25 mg 04/13/23 15:38 04/13/23 16:11 Diphenhydramine 50mg/Ml Vial IV 04/13/23 15:39 25 mg ONCE ONE Administration Sodium Chloride 1,000 mls @ 999 mls/hr 04/13/23 15:05 04/13/23 15:11 Sod Chlor 0.9% 1000ml Bag IV 04/13/23 16:05 999 mls/hr .Q1H1M ONE Administration Cefepime HCl 2 gm/ Sodium 100 mls @ 200 mls/hr 04/13/23 15:52 04/13/23 16:42 Chloride IV 04/13/23 16:21 200 mls/hr ONCE ONE Administration Iopamidol 100 ml 04/13/23 17:14 04/13/23 17:15 Iopamidol-370 (76%);100ml Bottle IV 04/13/23 17:15 100 ml ONCE ONE Administration Methylprednisolone Sodium Succinate 60 mg 04/13/23 15:38 04/13/23 16:11 Methylprednisolone Sod Succ 125mg Vial IV 04/13/23 15:39 60 mg ONCE ONE Administration Miscellaneous 1 each 04/13/23 16:00 04/13/23 16:00 Vancomycin Consult Request NOTAPPLIC 05/13/23 15:59 1 each CONSULT PHARMACY NICOL Administration Sodium Chloride 50 ml 04/13/23 17:14 04/13/23 17:15 0.9 % Sodium Chloride 50 Ml Vial IV 04/13/23 17:15 50 ml ONCE ONE Administration Sodium Chloride 10 ml 04/13/23 17:14 04/13/23 17:15 Sodium Chloride 0.9% 10ml Syr (Rad Only) IV 04/13/23 17:15 10 ml ONCE ONE Administration ORDERS Category Date Time Status CT angio abdomen pelvis Stat Cat Scan 04/13/23 15:[address] angio chest PE protocol Stat Cat Scan 04/13/23 15:53 Completed POCUS Point of Care (ER Only) Stat Exams 04/13/23 15:06 Completed XR chest portable Stat Exams 04/13/23 15:05 Taken Brain Natriuretic Peptide Stat Lab 04/13/23 15:02 Completed Complete Blood Count Auto Diff Stat Lab 04/13/23 15:02 Completed Comprehensive Metabolic Panel Stat Lab 04/13/23 15:02 Completed D-Dimer Stat Lab 04/13/23 15:02 Completed Lactate Venous Stat Lab 04/13/23 15:29 Completed Lipase Stat Lab 04/13/23 15:02 Completed Magnesium Stat Lab 04/13/23 15:02 Completed T4 (Thyroxine) Stat Lab 04/13/23 15:02 Completed TSH [Thyroid Stimulating Hormone] Stat Lab 04/13/23 15:02 Completed Troponin I Q3H Lab 04/13/23 18:20 Completed Troponin I Q3H Lab 04/13/23 21:15 Ordered Troponin I Stat Lab 04/13/23 15:02 Completed UA [Urinalysis and Microscopic] Stat Lab 04/13/23 16:48 Completed Blood Culture Stat Micro 04/13/23 15:50 Received Venous Blood Gas Stat RT 04/13/23 15:06 Completed MDM Narrative Medical Decision Narrative: 67-year-old female history of high tension hyperlipidemia, diabetes, remote history of unprovoked DVT not currently on anticoagulation presenting with multiple complaints. Patient states that for the past couple of months, she has been having a popping/bubbling sound when she bends over and then stands up. It starts in her lower abdomen, radiates up toward her neck. Not associated with any other symptoms. She states that Today, she was at a long-term visiting a family member eating lunch when she started feeling nauseated and has not felt better since. No chest pain, shortness of breath, vomiting, diarrhea, constipation, or diaphoresis. Patient also denies lower extremity swelling, PND, orthopnea, or any other concerns. History was obtained via conversation with patient. On arrival, patient hemodynamically stable, alert, oriented x4, appropriate, GCS 15, moving all extremities spontaneously, pupils equal and reactive to light. Full physical exam performed and significant for tired appearing woman in no acute distress. Lungs are clear to auscultation bilaterally. Patient is tachycardic with normal rhythm. No extracardiac sounds. Abdomen is soft, nontender, nondistended. No flank tenderness. No overlying skin changes. Overall, well-appearing woman. Differential includes microvascular coronary artery disease, CHF, ACS, CO, coronary artery dissection, pneumothorax, PE, dissection, pericarditis, myocarditis, pneumothorax, aortic aneurysm, pneumonia, bronchitis, gastritis, gastroenteritis, UTI, sepsis, among others. Patient was given 324 mg aspirin, fluid bolus, vancomycin and Unasyn for symptomatic management and correction of underlying abnormalities. Workup independently interpreted and significant for leukocytosis 16.1 with neutrophilic shift. She also has lactate of 4.1. Patient is in compensated metabolic acidosis with pH 7.4, CO2 low at 33 and bicarb low at 21. Kidney function normal. Initial troponin negative, BNP negative. Thyroid studies nonactionable. Urinalysis without concern for UTI. Chest x-ray with no acute cardiopulmonary airspace disease see radiology read for full review of final results. Due to persistent tachycardia, CT PE was ordered given patient's history. No acute PE or pulmonary disease. Independent interpretation of EKG shows sinus tachycardia 135 beats a minute without ST or T wave changes concerning for acute ischemia. Leftward axis with partial left bundle branch block. Heart score 4. On reevaluation, patient remains tachycardic, given another liter of fluids. Also given vancomycin and Unasyn. Hospital medicine was contacted out of concern for developing sepsis and need for clearing blood cultures in the setting of persistent tachycardia and elevated lactic acid with metabolic acidosis, agreeable to this plan. Given patient presentation, workup, history, this most likely represents sepsis with associated compensated metabolic acidosis. Because patient high risk for clinical decompensation, deemed appropriate for inpatient admission. Results were relayed to patient who voiced understanding and patient was agreeable to inpatient admission and management. Patient was admitted to the hospital for further definitive management.
[2023-04-13 15:32] LABS: VBG Base Excess -3.6 mmol/L (-2.4-2.3); VBG Oxygen Saturation 89.9 % (50-70); VBG PCO2 33.3 mmol/L (35-51); VBG PH 7.42 mmol/L (7.31-7.41); VBG PO2 52.6 mmol/L (28-40)
[2023-04-13 15:33] LABS: Alanine Aminotransferase 41 U/L (12-78); Albumin Level 4.4 g/dl (3.5-5.0); Albumin/Globulin Ratio 1.5 (1.1-1.8); Alkaline Phosphatase 97 U/L (38-126); Anion Gap 14.2 mEq/L (5-15); Aspartate Amino Transferase 61 U/L (14-36); Basophils # 0.1 K/mm3 (0-0.2); Basophils % 0.6 % (0.1-2.0); Bilirubin,Total 0.9 mg/dl (0.2-1.3); Blood Urea Nitrogen 6 mg/dl (7-17); Calcium 10.4 mg/dl (8.4-10.2); Carbon Dioxide 23 mmol/L (22.0-30.0); Chloride 105 mmol/L (98-107); Creatinine Clearance Estimated 78 mL/min (50-200); Eosinophils # 0.3 K/mm3 (0.0-0.4); Eosinophils % 1.7 % (0.1-12.0); Estimated Glomerular Filt Rate 123 ml/min (>60); GFR (African American) 148 ML/MIN (>60); Globulin 2.9 g/dL (1.3-3.2); Glucose 283 mg/dl (74-100); Hematocrit 50.5 % (37.0-47.0); Hemoglobin 16.3 g/dL (12.2-16.2); Lipase 138 U/L (23-300); Lymphocytes # 2.6 K/mm3 (0.7-4.5); Lymphocytes % 16.4 % (10-50); Mean Corpuscular HGB Conc 32.2 g/dL (31.8-35.4); Mean Corpuscular Hemoglobin 29.7 pg (27.0-31.2); Mean Corpuscular Volume 92.4 fl (81-99); Mean Platelet Volume 10.8 fl (7.4-10.4); Monocytes # 0.7 K/mm3 (0.1-1.0); Monocytes % 4.1 % (1.7-9.3); Neutrophils # 12.4 K/mm3 (1.8-7.8); Neutrophils % 77.2 % (37.0-80.0); Platelet Count 191 K/mm3 (142-424); Potassium 4.2 mmoL/L (3.5-5.1); Red Blood Count 5.47 M/mm3 (4.20-5.40); Red Cell Distribution Width 14.5 % (11.5-17.5); Sodium 138 mmol/L (136-145); Total Protein,Serum 7.3 g/dl (6.3-8.2); White Blood Count 16.1 K/mm3 (4.8-10.8)
[2023-04-13 15:36] LABS: MANUAL DIFFERENTIAL MANUAL DIFFERENTIAL (MANUAL DIFF)
[2023-04-13 15:38] LABS: Lactate Venous 4.1 mmol/L (0.4-2.0)
[2023-04-13 15:45] LABS: D-Dimer 0.36 ug/mL (0.0-0.5)
[2023-04-13 15:50] LABS: T4 (Thyroxine) 14.5 ug/dl (5.53-11.0); Troponin I < 0.01 ng/ml (0.00-0.034)
--- NOTE | 2023-04-13 15:53 | CT_ITS ---
PROCEDURE INFORMATION: Exam: CTA Abdomen and Pelvis With Contrast Exam date and time: 04/13/2023 5:10 PM Age: 67 years old Clinical indication: Abdominal pain; Generalized; Additional info: Abdominal discomfort, lactate 4. O, vomiting TECHNIQUE: Imaging protocol: Computed tomographic angiography of the abdomen and pelvis with contrast. Exam focused on the arteries. 3D rendering (Not supervised by radiologist): MIP and/or 3D reconstructed images were created by the technologist. Radiation optimization: All CT scans at this facility use at least one of these dose optimization techniques: automated exposure control; mA and/or kV adjustment per patient size (includes targeted exams where dose is matched to clinical indication); or iterative reconstruction. Contrast material: ISOVUE; Contrast volume: 100 ml; Contrast route: INTRAVENOUS (IV); COMPARISON: CT ABDOMEN PELVIS W CON 09/18/2022 6:11 PM FINDINGS: Aorta: No aortic aneurysm. No aortic dissection. Celiac trunk and mesenteric arteries: No occlusion or significant stenosis. Renal arteries: No occlusion or significant stenosis. Right iliac arteries: No occlusion or significant stenosis. Left iliac arteries: No occlusion or significant stenosis. Other arteries: Mild atherosclerotic disease without aneurysm. Liver: Nodular liver consistent with cirrhosis. No liver lesions. Hepatic steatosis. Mild hepatomegaly. Gallbladder and bile ducts: Status post cholecystectomy. No significant biliary ductal dilitation. Pancreas: Unremarkable. No mass. No ductal dilation. Spleen: Mild splenomegaly. Calcified granuloma in the spleen. Adrenal glands: Unremarkable. No mass. Kidneys and ureters: No renal masses or cysts. No hydronephrosis. 4 mm right-sided and 5 mm and 3 mm left-sided calyceal calculi. No ureteral calculi. Stomach and bowel: Unremarkable. No obstruction. No mucosal thickening. Appendix: No evidence of appendicitis. Intraperitoneal space: Unremarkable. No free air. No significant fluid collection. Lymph nodes: Unremarkable. No enlarged lymph nodes. Urinary bladder: Unremarkable. No mass. Reproductive: Status post hysterectomy. No adnexal masses. Bones/joints: Osteopenia. [id number] lumbar spine degenerative change. Slight grade 1 anterolisthesis of L4 over L5. Mild degenerative change of the bilateral hips and sacroiliac joints. Soft tissues: Anterior inferior abdominal wall scarring. IMPRESSION: 1. Hepatic cirrhosis with hepatic steatosis. 2. Splenomegaly. 3. Bilateral intrarenal calculi. 4. No significant changes.
--- NOTE | 2023-04-13 15:53 | CT_ITS ---
PROCEDURE INFORMATION: Exam: CTA Chest With Contrast Exam date and time: 04/13/2023 5:10 PM Age: 67 years old Clinical indication: Other: Tachycardia; Additional info: Persistent tachycardia, history of pe TECHNIQUE: Imaging protocol: Computed tomographic angiography of the chest with contrast. Exam focused on the arteries. 3D rendering (Not supervised by radiologist): MIP and/or 3D reconstructed images were created by the technologist. Radiation optimization: All CT scans at this facility use at least one of these dose optimization techniques: automated exposure control; mA and/or kV adjustment per patient size (includes targeted exams where dose is matched to clinical indication); or iterative reconstruction. Contrast material: ISOVUE 370; Contrast volume: 100 ml; Contrast route: INTRAVENOUS (IV); COMPARISON: CT ANGIO CHEST PE PROTOCOL 09/18/2022 6:11 PM FINDINGS: Pulmonary arteries: Mild central pulmonary artery dilatation. No pulmonary emboli. Aorta: Unremarkable. No aortic aneurysm. No aortic dissection. Lungs: Right lower lobe calcified granuloma. Mild scattered bilateral atelectasis. Pleural spaces: Unremarkable. No pneumothorax. No pleural effusion. Heart: Unremarkable. No cardiomegaly. No pericardial effusion. Coronary arteries: Moderate coronary artery calcification. Lymph nodes: No adenopathy. Calcified subcarinal and right hilar lymph nodes. Liver: Nodular liver consistent with cirrhosis. Gallbladder and bile ducts: Status post cholecystectomy. Spleen: Splenomegaly. Calcified granuloma in the spleen. Bones/joints: Mild degenerative changes of the thoracic spine. Soft tissues: Unremarkable. IMPRESSION: No acute findings. No pulmonary emboli.
[2023-04-13] MEDS: VANCOMYCIN CONSULT REQUEST 1 EACH NOTAPPLIC (16:00)
[2023-04-13 16:04] LABS: Thyroid Stimulating Hormone 2.83 uIU/mL (0.465-4.68)
[2023-04-13] MEDS: METHYLPREDNISOLONE SOD SUCC 125MG VIAL 60 MG IV (16:11)
[2023-04-13] MEDS: diphenhydrAMINE 50MG/ML VIAL 25 MG IV (16:11)
--- NOTE | 2023-04-13 16:22 | PC.NURSE ---
Dr Beebe at [facility]
[2023-04-13] MEDS: CEFEPIME HCL 2 GM in 0.9 % SODIUM CHLORIDE 100 ML IV ×2 (16:42→23:16)
[2023-04-13 16:44] LABS: Magnesium 1.7 mg/dl (1.6-2.3)
[2023-04-13 16:45] LABS: NT Pro Brain Natriuretic Pep. 50.8 pg/mL (0-125)
[2023-04-13 17:07] LABS: Anisocytosis 1+; Hypochromasia 2+; Lymphocytes % 17 % (10-50); Monocytes % 3 % (2-9); Neutrophils % 80 % (42-76); Platelet Estimate Normal; Total Cells Counted 100
--- NOTE | 2023-04-13 17:07 | PC.NURSE ---
pt gone to ct
--- NOTE | 2023-04-13 17:07 | PC.NURSE ---
PT TO CT
[2023-04-13 17:14] LABS: Microscopic, Urine URINE MICROSCOPIC (MICROSCOPIC)
[2023-04-13] MEDS: SODIUM CHLORIDE 0.9% 10ML SYR (RAD ONLY) 10 ML IV (17:15)
[2023-04-13] MEDS: 0.9 % SODIUM CHLORIDE 50 ML VIAL IV (17:15)
[2023-04-13] MEDS: IOPAMIDOL-370 (76%);100ML BOTTLE 100 ML IV (17:15)
--- NOTE | 2023-04-13 17:16 | PC.NURSE ---
Patient back from CT
[2023-04-13] MEDS: VANCOMYCIN/WATER FOR INJ (PEG) 1.25 GM/250 ML PIGGYBACK IV (17:18)
[2023-04-13 17:19] LABS: Appearance,Urine CLEAR (Clear); Blood, Urine Negative (Negative); Color,Urine YELLOW (Yellow); Glucose,Urine (UA) 2+ (Negative); Ketones,Urine 1+ (Negative); Leukocyte Esterase,Urine Negative (Negative); Nitrate,Urine Negative (Negative); Protein,Urine 2+ (Negative); Specific Gravity, Urine >= 1.030 (1.005-1.030); Urobilinogen,Urine 0.2 EU/dl (0.2)
[2023-04-13 17:42] LABS: Bacteria,Urine Trace /lpf; Bilirubin,Urine 1+ (Negative); Calcium Oxalate Crystals,Urine 1+ /lpf; Squamous Epithelial Cell,Urine Occasional #/hpf (0-5)
--- NOTE | 2023-04-13 18:28 | PC.NURSE ---
Dr Beebe spoke with hospitalist
--- NOTE | 2023-04-13 18:35 | PC.NURSE ---
call made to housekeeping laundry worker for bed placement
--- NOTE | 2023-04-13 18:46 | PC.NURSE ---
Called anraldo Rios and updated on admission.
--- NOTE | 2023-04-13 18:48 | PC.NURSE ---
attempted to call and give report to second floor, no answer.
[2023-04-13 19:02] LABS: Troponin I < 0.01 ng/ml (0.00-0.034)
[2023-04-13 19:38] LABS: Reflex Lactic Add Lactic Reflex
--- NOTE | 2023-04-13 20:04 | P.HP_ITS ---
Attending attestation Patient was seen and evaluated at the bedside myself, agree with AMIRAH note. History of Present Illness *Admission Date: 04/13/23 *Reason for visit:: metabolic acidosis *History of present illness: 67 year old female presented to [facility] ED for c/o feeling ill and chest pain that started at 1 p.m. PMHX of HTN, HLD, DM, and hypothyroid. Patient states that for the past couple of months, she has been having a popping/bubbling sound when she bends over and then stands up. It starts in her lower abdomen, radiates up toward her neck. Not associated with any other symptoms. She was eating lunch when she noticed her abdomen started to cramp and she felt nausea. She denies chest pain upon admission and feels much better. She is requesting to eat. She has LUQ tenderness on exam. Her ED workup revealed a leukocytosis of 16.1, lactic of 4.1, p.h of 7.4, c02 of 33, and bicarb of 21. Her UA was negative, troponins negative, chest xray negative for abnormalities, and CTA of chest and abdomen negative for infection. She was started on broad spectrum antibiotics and given 2L of fluids with blood cultures pending. The ED physician consulted the hospitalist team for further medical management. The pt was admitted to the medical floor for further treatment of sepsis with unknown source. [facility] Disclaimer: The information contained in this section may have been updated after the patient was seen, as this information can be updated by other users. 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 Ankle fracture, right Bladder cancer Cholelithiases Dermatitis Dermatitis Dermatitis Diabetes mellitus, type 2 DVT (deep venous thrombosis) Endometrial cancer GERD (gastroesophageal reflux disease) Hypertension Hypothyroidism Kidney stones Left wrist fracture UTI (urinary tract infection) Surgical History (Updated 04/13/23 @ 20:10 by Domitila Smith RN) H/O bilateral oophorectomy H/O total hysterectomy History of cholecystectomy History of lithotripsy S/P hernia surgery Family History Family history of GERD Breast cancer Endometrial cancer Hypertension 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 Smoking Status: Never smoker alcohol intake: never substance use type: denies use current occupational status: employed and other Travel in the last 8 weeks: None household members: family housing: house lives independently: No education level: high school service: No pets and animals: No Review of Systems Review of Systems Review of systems:: pertinent systems reviewed and negative unless documented below *Cardiovascular Cardiovascular: Reports chest pain *Respiratory Respiratory: Reports system reviewed and no additional complaints, except as documented *Gastrointestinal Gastrointestinal: Reports abdominal pain and Reports nausea *Genitourinary Genitourinary: Reports system reviewed and no additional complaints, except as documented *Musculoskeletal Musculoskeletal: Reports system reviewed and no additional complaints, except as documented *Neurologic Neurologic: Reports system reviewed and no additional complaints, except as documented Meds Home Medications and Allergies Home Medications Medication Instructions Recorded Confirmed Type glimepiride 4 mg tablet 8 mg PO DAILY Diabetes 01/27/18 04/13/23 History levothyroxine 88 mcg tablet 88 mcg PO DAILY hypothyroidism 01/27/18 04/13/23 History metformin 1,000 mg tablet 1,000 mg PO BID Diabetes 11/29/21 04/13/23 History semaglutide 14 mg tablet (Rybelsus) 14 mg PO DAILY Diabetes 11/29/21 04/13/23 History amlodipine 5 mg tablet 5 mg PO DAILY hypertension 09/18/22 04/13/23 History New Prescriptions to Start Prescriptions: Allergies Allergy/AdvReac Type Severity Reaction Status Date / Time chlordiazepoxide Allergy Unknown Verified 09/18/22 16:47 [From LIBRAX (WITH CLIDINIUM)] clidinium Allergy Unknown Verified 09/18/22 16:47 [From LIBRAX (WITH CLIDINIUM)] iodine [IODINE] Allergy Unknown Verified 09/18/22 16:47 Penicillins [PENICILLINS] Allergy Unknown Rash Verified 09/18/22 16:47 Sulfa (Sulfonamide Allergy Unknown Rash Verified 09/18/22 16:47 Antibiotics) [SULFA (SULFONAMIDE ANTIBIOTICS)] morphine Allergy Chest Pain Verified 09/18/22 16:47 Exam Data for Last 24 hours Vital signs and Labs for Last 24 Hours: Temp Pulse Resp BP Pulse Ox O2 Del Method 98.0 F 116 H 18 127/63 97 Room Air 04/13/23 19:26 04/13/23 19:26 04/13/23 19:26 04/13/23 19:26 04/13/23 19:00 04/13/23 19:26 Laboratory Results - last 24 hr 04/13/23 15:02: WBC 16.1 H, RBC 5.47 H, Hgb 16.3 H, Hct 50.5 H, MCV 92.4, MCH 29.7, MCHC 32.2, RDW 14.5, Plt Count 191, MPV 10.8 H, Neut % (Auto) 77.2, Lymph % (Auto) 16.4, [place] % (Auto) 4.1, Eos % (Auto) 1.7, Baso % (Auto) 0.6, Neut # (Auto) 12.4 H, Lymph # (Auto) 2.6, [place] # (Auto) 0.7, Eos # (Auto) 0.3, Baso # (Auto) 0.1, Total Counted 100, Neutrophils % (Manual) 80 H, Lymphocytes % (Manual) 17, Monocytes % (Manual) 3, Platelet Estimate Normal, RBC Morphology Not Reportable, Hypochromasia 2+, Anisocytosis 1+, D-Dimer 0.36, Sodium 138, Potassium 4.2, Chloride 105, Carbon Dioxide 23, Anion Gap 14.2, BUN 6 L, Creatinine 0.50 L, Estimated Creat Clear 78, Estimated GFR 123, Est GFR ( Amer) 148, Glucose 283 H, Calcium 10.4 H, Magnesium 1.7, Total Bilirubin 0.9, T 61 H, ALT 41, Alkaline Phosphatase 97, Troponin I < 0.01, NT-Pro-B Natriuret Pep 50.8, Total Protein 7.3, Albumin 4.4, Globulin 2.9, Albumin/Globulin Ratio 1.5, Lipase 138, TSH 2.83, Thyroxine (T4) 14.5 H 04/13/23 15:06: VBG pH 7.42 H, VBG pCO2 33.3 L, VBG pO2 52.6 H, VBG HCO3 21.0 L, VBG Total CO2 22.0 L, VBG O2 Saturation 89.9 H, VBG Base Excess -3.6 L 04/13/23 15:29: VBG Lactic Acid 4.1 H 04/13/23 16:48: Urine Color Yellow, Urine Appearance Clear, Urine pH 6.0, Ur Specific [place] >= 1.030, Urine Protein 2+, Urine Glucose (UA) 2+, Urine Ketones 1+, Urine Blood Negative, Urine Nitrate Negative, Urine Bilirubin 1+ A, Urine Urobilinogen 0.2, Ur Leukocyte Esterase Negative, Urine RBC None, Urine WBC None, Ur Squamous Epith Cells Occasional, Calcium Oxalate Crystal 1+, Urine Bacteria Trace 04/13/23 18:20: Troponin I < 0.01 I & O for Last 24 hours: Intake & Output 04/10/23 04/11/23 04/12/23 04/13/23 23:59 23:59 23:59 23:59 Weight 91.626 kg Constitutional Constitutional: no acute distress *Routine HEENT Exam Head: Present normocephalic Eye: Present EOMI ENT: Present mucous membranes moist *Routine Neck Exam Neck: Present full ROM and tenderness *Routine Respiratory Exam Respiratory: Present CTA bilaterally *Routine Cardiovascular Exam Cardiovascular: Present RRR *Routine Abdominal Exam Abdominal: Present soft, normoactive bowel sounds and tenderness (LUQ) *Routine Rectal Exam Rectal:: deferred *Routine Genitalia Exam Genitalia:: deferred *Routine Extremities Exam Extremities: Present edema (rle-> has titanium from prior surgery ) and full ROM *Routine Skin Exam Skin: Present intact *Routine Neurological Exam Neurological: Present alert and oriented X3 Assessment and Plan *Assessment and plan (1) Sepsis: Status: Acute Qualifiers: Sepsis acute organ dysfunction status: with acute organ dysfunction Sepsis type: sepsis due to unspecified organism Severe sepsis acute organ dysfunction type: unspecified Severe sepsis shock status: without septic shock Qualified Code(s): A41.9 - Sepsis, unspecified organism; R65.20 - Severe sepsis without septic shock Category: Medical Code(s): A41.9 - Sepsis, unspecified organism (2) Diabetes mellitus: Status: Acute Qualifiers: Diabetes mellitus type: type 2 Category: Medical Code(s): E11.9 - Type 2 diabetes mellitus without complications (3) Hypothyroidism: Status: Chronic Qualifiers: Hypothyroidism type: acquired Qualified Code(s): E03.9 - Hypothyroidism, unspecified Category: Medical Code(s): E03.9 - Hypothyroidism, unspecified (4) Hypertension: Status: Chronic Qualifiers: Hypertension type: primary hypertension Qualified Code(s): I10 - Essential (primary) hypertension Category: Medical Code(s): I10 - Essential (primary) hypertension (5) Obesity: Status: Acute Qualifiers: Body mass index: BMI 38.0-38.9 Obesity classification: adult class 2 (BMI 35 - 39.9) Obesity type: due to excess calories Category: Medical Code(s): E66.9 - Obesity, unspecified Plan 67 year old female presented to [facility] ED for c/o feeling ill and chest pain that started at 1 p.m. PMHX of HTN, HLD, DM, and hypothyroid. Patient states that for the past couple of months, she has been having a popping/bubbling sound when she bends over and then stands up. It starts in her lower abdomen, radiates up toward her neck. Not associated with any other symptoms. She was eating lunch when she noticed her abdomen started to cramp and she felt nausea. She denies chest pain upon admission and feels much better. She is requesting to eat. She has LUQ tenderness on exam. Her ED workup revealed a leukocytosis of 16.1, lactic of 4.1, p.h of 7.4, c02 of 33, and bicarb of 21. Her UA was negative, troponins negative, chest xray negative for abnormalities, and CTA of chest and abdomen negative for infection. She was started on broad spectrum antibiotics and given 2L of fluids with blood cultures pending. The ED physician consulted the hospitalist team for further medical management. The pt was admitted to the medical floor for further treatment of sepsis with unknown source. SEPSIS -leukocytosis of 16.1, lactic of 4.1, p.h of 7.4, c02 of 33, and bicarb of 21 -EKG reviewed and reveals sinus tachycardia. No ST elevation. Troponins negative -blood cultures pending -cbc and bmp reordered for morning -UA negative -CTA of chest reviewed and reveals granuloma in RLL, no PNA or PE -CTA of abd reviewed and reveals mild splenomegaly, bilateral uteteral calculi without obstruction, and hepatic cirrhosis. -continue vancomycin and cefepime IV -repeat lactate 2.5. DM -ssi -a1c pending HYPOTHYROIDISM HTN -TSH 2.83 and T4 14.5 -continue levothyroxine -holding amlodipine in setting of sepsis OBESITY -complicates all aspects of care FULL CODE DIABETIC DIET DVT: HEPARIN SQ
[2023-04-13 20:26] LABS: Lactic Acid Follow Up (RFLX 1) 2.5 mmol/L (0.7-2.1)
[2023-04-13 21:04] LABS: Hemoglobin A1C 8.9 % (4.0-6.0)
--- NOTE | 2023-04-13 21:07 | PC.NURSE ---
Patient arrived to floor from ED at 19:44.
[2023-04-13 21:19] LABS: Troponin I < 0.01 ng/ml (0.00-0.034)
[2023-04-13 21:34] LABS: POC Glucose,Bedside 373 (70-110)
[2023-04-13] MEDS: humaLOG 100 UNITS/ML 3ML VIAL (SSI) SQ (21:39)
[2023-04-13] MEDS: HEPARIN SODIUM 5,000 UNIT/ML VIAL 5000 UNIT SQ (21:39)
[2023-04-13 22:13] LABS: Reflex Lactic (2 hrs) Add Lactic Reflex
[2023-04-13 22:44] LABS: Lactic Acid Follow up (RFLX 2) 2.4 mmol/L (0.7-2.1)
[2023-04-13] MEDS: IBUPROFEN 400 MG TABLET PO (23:13)
[2023-04-14 04:00] VITALS: BP 105/66; PULSE 78; RESP 17; TEMP 36.4; O2SAT 95; BMI 33.2
[2023-04-14] MEDS: humaLOG 100 UNITS/ML 3ML VIAL (SSI) SQ ×4 (05:07→20:50)
[2023-04-14] MEDS: VANCOMYCIN/WATER FOR INJ (PEG) 1.25 GM/250 ML PIGGYBACK IV ×2 (05:07→17:55)
--- NOTE | 2023-04-14 05:35 | PC.NURSE ---
Patient has had a wonderful night since arriving to the floor. The patients only complaint was a headache but after given medication, see [facility], patient has not complained of it since. Patient is independent to the bathroom has not complained of being SOB or chest pain. no other issues through the shift.
[2023-04-14 06:44] LABS: POC Glucose,Bedside 257 (70-110)
[2023-04-14 08:00] VITALS: BP 117/59; PULSE 74; RESP 18; TEMP 36.5; O2SAT 98
[2023-04-14 08:43] LABS: Basophils % 0.3 % (0.1-2.0); Eosinophils % 0.1 % (0.1-12.0); Hematocrit 41.7 % (37.0-47.0); Lymphocytes # 1.4 K/mm3 (0.7-4.5); Lymphocytes % 16.9 % (10-50); Mean Corpuscular HGB Conc 32.1 g/dL (31.8-35.4); Mean Corpuscular Hemoglobin 30.3 pg (27.0-31.2); Mean Corpuscular Volume 94.3 fl (81-99); Mean Platelet Volume 10.7 fl (7.4-10.4); Monocytes # 0.4 K/mm3 (0.1-1.0); Monocytes % 4.4 % (1.7-9.3); Neutrophils # 6.2 K/mm3 (1.8-7.8); Neutrophils % 78.3 % (37.0-80.0); Platelet Count 134 K/mm3 (142-424); Red Blood Count 4.43 M/mm3 (4.20-5.40); Red Cell Distribution Width 14.5 % (11.5-17.5)
[2023-04-14 08:45] LABS: Blood Urea Nitrogen 12 mg/dl (7-17); Calcium 9.5 mg/dl (8.4-10.2); Carbon Dioxide 23 mmol/L (22.0-30.0); Chloride 106 mmol/L (98-107); Creatinine Clearance Estimated 80 mL/min (50-200); Estimated Glomerular Filt Rate 123 ml/min (>60); GFR (African American) 148 ML/MIN (>60); Glucose 273 mg/dl (74-100); Sodium 136 mmol/L (136-145)
[2023-04-14] MEDS: LEVOTHYROXINE 88MCG (0.088MG) TAB 88 MCG PO (09:03)
[2023-04-14] MEDS: CEFEPIME HCL 2 GM in 0.9 % SODIUM CHLORIDE 100 ML IV ×2 (09:03→17:27)
[2023-04-14] MEDS: HEPARIN SODIUM 5,000 UNIT/ML VIAL 5000 UNIT SQ ×2 (09:03→20:45)
[2023-04-14 09:04] LABS: Hemoglobin 13.4 g/dL (12.2-16.2)
[2023-04-14] MEDS: ONDANSETRON 4MG/2ML VIAL 4 MG IV (11:23)
[2023-04-14 11:37] LABS: POC Glucose,Bedside 273 (70-110)
--- NOTE | 2023-04-14 13:49 | HMH.PHAINT1 ---
Pharmacy Intervention Comments: MED LIST ADJUSTED PER FILL HISTORY.
--- NOTE | 2023-04-14 14:26 | EXP.PHA.CONS ---
Pharmacy Consult Date: 04/14/23 Time: 14:26 Referring provider: DR. PLASCENCIA Reason for Consult:: VANCOMYCIN DOSING Allergies Allergy/AdvReac Type Severity Reaction Status Date / Time chlordiazepoxide Allergy Unknown Verified 09/18/22 16:47 [From LIBRAX (WITH CLIDINIUM)] clidinium Allergy Unknown Verified 09/18/22 16:47 [From LIBRAX (WITH CLIDINIUM)] iodine [IODINE] Allergy Unknown Verified 09/18/22 16:47 Penicillins [PENICILLINS] Allergy Unknown Rash Verified 09/18/22 16:47 Sulfa (Sulfonamide Allergy Unknown Rash Verified 09/18/22 16:47 Antibiotics) [SULFA (SULFONAMIDE ANTIBIOTICS)] morphine Allergy Chest Pain Verified 09/18/22 16:47 Home Medications Medication Instructions Recorded Confirmed Type glimepiride 4 mg tablet 8 mg PO DAILY Diabetes 01/27/18 04/13/23 History levothyroxine 88 mcg tablet 88 mcg PO DAILY hypothyroidism 01/27/18 04/14/23 History metformin 1,000 mg tablet 1,000 mg PO 1200,1700 Diabetes 11/29/21 04/14/23 History semaglutide 14 mg tablet (Rybelsus) 14 mg PO DAILYDM Diabetes 11/29/21 04/14/23 History amlodipine 5 mg tablet 5 mg PO DAILY hypertension 09/18/22 04/13/23 History cyclobenzaprine 5 mg tablet 5 mg PO TIDP PRN MUSCLE SPASMS 04/14/23 04/14/23 History omeprazole 20 mg capsule,delayed 20 mg PO DAILY GERD 04/14/23 04/14/23 History release New Prescriptions to Start Prescriptions: Height: 1.68 m Weight: 93.712 kg Laboratory Results:: Laboratory Results - last 24 hr 04/13/23 15:02: WBC 16.1 H, RBC 5.47 H, Hgb 16.3 H, Hct 50.5 H, MCV 92.4, MCH 29.7, MCHC 32.2, RDW 14.5, Plt Count 191, MPV 10.8 H, Neut % (Auto) 77.2, Lymph % (Auto) 16.4, [place] % (Auto) 4.1, Eos % (Auto) 1.7, Baso % (Auto) 0.6, Neut # (Auto) 12.4 H, Lymph # (Auto) 2.6, [place] # (Auto) 0.7, Eos # (Auto) 0.3, Baso # (Auto) 0.1, Total Counted 100, Neutrophils % (Manual) 80 H, Lymphocytes % (Manual) 17, Monocytes % (Manual) 3, Platelet Estimate Normal, RBC Morphology Not Reportable, Hypochromasia 2+, Anisocytosis 1+, D-Dimer 0.36, Sodium 138, Potassium 4.2, Chloride 105, Carbon Dioxide 23, Anion Gap 14.2, BUN 6 L, Creatinine 0.50 L, Estimated Creat Clear 78, Estimated GFR 123, Est GFR ( Amer) 148, Glucose 283 H, Hemoglobin A1c 8.9 H, Calcium 10.4 H, Magnesium 1.7, Total Bilirubin 0.9, AST 61 H, ALT 41, Alkaline Phosphatase 97, Troponin I < 0.01, NT-Pro-B Natriuret Pep 50.8, Total Protein 7.3, Albumin 4.4, Globulin 2.9, Albumin/Globulin Ratio 1.5, Lipase 138, TSH 2.83, Thyroxine (T4) 14.5 H 04/13/23 15:06: VBG pH 7.42 H, VBG pCO2 33.3 L, VBG pO2 52.6 H, VBG HCO3 21.0 L, VBG Total CO2 22.0 L, VBG O2 Saturation 89.9 H, VBG Base Excess -3.6 L 04/13/23 15:29: VBG Lactic Acid 4.1 H 04/13/23 16:48: Urine Color Yellow, Urine Appearance Clear, Urine pH 6.0, Ur Specific [place] >= 1.030, Urine Protein 2+, Urine Glucose (UA) 2+, Urine Ketones 1+, Urine Blood Negative, Urine Nitrate Negative, Urine Bilirubin 1+ A, Urine Urobilinogen 0.2, Ur Leukocyte Esterase Negative, Urine RBC None, Urine WBC None, Ur Squamous Epith Cells Occasional, Calcium Oxalate Crystal 1+, Urine Bacteria Trace 04/13/23 18:20: Troponin I < 0.01 04/13/23 20:10: Lactate 2.5 H, Troponin I < 0.01 04/13/23 21:25: POC Glucose 373 H* 04/13/23 22:25: Lactate 2.4 H 04/14/23 05:04: POC Glucose 257 H 04/14/23 06:28: WBC 8.0 D, RBC 4.43, Hgb 13.4 D, Hct 41.7, MCV 94.3, MCH 30.3, MCHC 32.1, RDW 14.5, Plt Count 134 L D, MPV 10.7 H, Neut % (Auto) 78.3, Lymph % (Auto) 16.9, [place] % (Auto) 4.4, Eos % (Auto) 0.1, Baso % (Auto) 0.3, Neut # (Auto) 6.2, Lymph # (Auto) 1.4, [place] # (Auto) 0.4, Eos # (Auto) 0.0, Baso # (Auto) 0.0, Sodium 136, Potassium 4.0, Chloride 106, Carbon Dioxide 23, Anion Gap 11.0, BUN 12 D, Creatinine 0.50 L, Estimated Creat Clear 80, Estimated GFR 123, Est GFR ( Amer) 148, Glucose 273 H, Calcium 9.5 04/14/23 11:24: POC Glucose 273 H 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: 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 (Updated 04/13/23 @ 19:32 by Jurgen Beebe MD) Ankle fracture, right Bladder cancer Cholelithiases Dermatitis Dermatitis Dermatitis Diabetes mellitus, type 2 DVT (deep venous thrombosis) Endometrial cancer GERD (gastroesophageal reflux disease) Hypertension Hypothyroidism Kidney stones Left wrist fracture UTI (urinary tract infection) Assessment and Plan Assessment and plan all Dx Assessment and Plan for all problems:: RECOMMEND VANCOMYCIN 1250 MG Q12H AT THIS TIME.
[2023-04-14 15:34] VITALS: BP 114/66; PULSE 83; RESP 18; TEMP 36.8; O2SAT 98
[2023-04-14 16:59] LABS: POC Glucose,Bedside 266 (70-110)
--- NOTE | 2023-04-14 17:47 | P.PN_ITS ---
Subjective *Date: 04/14/23 *Time: 17:47 Interval history: patient was seen and evaluated at the bedside. denies chest pain, shortness of breath, nausea, vomiting, abdominal pain. Exam Data for Last 24 hours Vital signs and Labs for Last 24 Hours: Temp Pulse Resp BP Pulse Ox O2 Del Method 98.2 F 83 18 114/66 98 Room Air 04/14/23 15:34 04/14/23 15:34 04/14/23 15:34 04/14/23 15:34 04/14/23 15:34 04/14/23 15:34 Laboratory Results - last 24 hr 04/13/23 15:02: Hemoglobin A1c 8.9 H 04/13/23 18:20: Troponin I < 0.01 04/13/23 20:10: Lactate 2.5 H, Troponin I < 0.01 04/13/23 21:25: POC Glucose 373 H* 04/13/23 22:25: Lactate 2.4 H 04/14/23 05:04: POC Glucose 257 H 04/14/23 06:28: WBC 8.0 D, RBC 4.43, Hgb 13.4 D, Hct 41.7, MCV 94.3, MCH 30.3, MCHC 32.1, RDW 14.5, Plt Count 134 L D, MPV 10.7 H, Neut % (Auto) 78.3, Lymph % (Auto) 16.9, [place] % (Auto) 4.4, Eos % (Auto) 0.1, Baso % (Auto) 0.3, Neut # (Auto) 6.2, Lymph # (Auto) 1.4, [place] # (Auto) 0.4, Eos # (Auto) 0.0, Baso # (Auto) 0.0, Sodium 136, Potassium 4.0, Chloride 106, Carbon Dioxide 23, Anion Gap 11.0, BUN 12 D, Creatinine 0.50 L, Estimated Creat Clear 80, Estimated GFR 123, Est GFR ( Amer) 148, Glucose 273 H, Calcium 9.5 04/14/23 11:24: POC Glucose 273 H 04/14/23 16:46: POC Glucose 266 H I & O for Last 24 hours: Intake & Output 02/28/24 02/29/24 03/01/24 03/02/24 23:59 23:59 23:59 23:59 Intake Total 740 / 740 Output Total 400 / 400 0 / 0 Balance -400 / 100 740 / 740 Weight 91.626 kg 93.712 kg Constitutional Constitutional: no acute distress *Routine HEENT Exam Head: Present normocephalic Eye: Present EOMI and PERRL ENT: Present mucous membranes moist *Routine Neck Exam Neck: Present supple; Absent lymphadenopathy *Routine Respiratory Exam Respiratory: Present CTA bilaterally *Routine Cardiovascular Exam Cardiovascular: Present RRR *Routine Abdominal Exam Abdominal: Present soft and normoactive bowel sounds; Absent tenderness *Routine Extremities Exam Extremities: Absent cyanosis, clubbing or edema *Routine Skin Exam Skin: Present warm; Absent rash *Routine Neurological Exam Neurological: Present alert and oriented X3 Assessment and Plan *Assessment and plan (1) Sepsis: Status: Acute Qualifiers: Sepsis acute organ dysfunction status: with acute organ dysfunction Sepsis type: sepsis due to unspecified organism Severe sepsis acute organ dysfunction type: unspecified Severe sepsis shock status: without septic shock Qualified Code(s): A41.9 - Sepsis, unspecified organism; R65.20 - Severe sepsis without septic shock Category: Medical Code(s): A41.9 - Sepsis, unspecified organism (2) Diabetes mellitus: Status: Acute Qualifiers: Diabetes mellitus type: type 2 Category: Medical Code(s): E11.9 - Type 2 diabetes mellitus without complications (3) Hypothyroidism: Status: Chronic Qualifiers: Hypothyroidism type: acquired Qualified Code(s): E03.9 - Hypothyroidism, unspecified Category: Medical Code(s): E03.9 - Hypothyroidism, unspecified (4) Hypertension: Status: Chronic Qualifiers: Hypertension type: primary hypertension Qualified Code(s): I10 - Essential (primary) hypertension Category: Medical Code(s): I10 - Essential (primary) hypertension (5) Obesity: Status: Acute Qualifiers: Body mass index: BMI 38.0-38.9 Obesity classification: adult class 2 (BMI 35 - 39.9) Obesity type: due to excess calories Category: Medical Code(s): E66.9 - Obesity, unspecified Plan 67 year old female presented to [facility] ED for c/o feeling ill and chest pain that started at 1 p.m. PMHX of HTN, HLD, DM, and hypothyroid. Patient states that for the past couple of months, she has been having a popping/bubbling sound when she bends over and then stands up. It starts in her lower abdomen, radiates up toward her neck. Not associated with any other symptoms. She was eating lunch when she noticed her abdomen started to cramp and she felt nausea. She denies chest pain upon admission and feels much better. She is requesting to eat. She has LUQ tenderness on exam. Her ED workup revealed a leukocytosis of 16.1, lactic of 4.1, p.h of 7.4, c02 of 33, and bicarb of 21. Her UA was negative, troponins negative, chest xray negative for abnormalities, and CTA of chest and abdomen negative for infection. She was started on broad spectrum antibiotics and given 2L of fluids with blood cultures pending. The ED physician consulted the hospitalist team for further medical management. The pt was admitted to the medical floor for further treatment of sepsis with unknown source. SEPSIS - unclear source -EKG reviewed and reveals sinus tachycardia. No ST elevation - Troponins negative - blood cultures pending -UA negative -CTA of chest reviewed and reveals granuloma in RLL, no PNA or PE -CTA of abd reviewed and reveals mild splenomegaly, bilateral uteteral calculi without obstruction, and hepatic cirrhosis. -continue vancomycin and cefepime IV DM -ISS HYPOTHYROIDISM HTN -TSH 2.83 and T4 14.5 -continue levothyroxine -holding amlodipine in setting of sepsis OBESITY -complicates all aspects of care FULL CODE DIABETIC DIET DVT: HEPARIN SQ continue IV abx, likely DC 1-2 days, monitor overnight
--- NOTE | 2023-04-14 18:21 | PC.NURSE ---
Patient a&ox4 and vss. Patient c/o nausea once and was better with zofran. Patient tolerating IV antibiotics.
[2023-04-14 20:00] VITALS: BP 108/54; PULSE 85; RESP 18; TEMP 37.2; O2SAT 97
[2023-04-14] MEDS: IBUPROFEN 400 MG TABLET PO (20:00)
[2023-04-14 20:59] LABS: POC Glucose,Bedside 260 (70-110)
[2023-04-15] MEDS: CEFEPIME HCL 2 GM in 0.9 % SODIUM CHLORIDE 100 ML IV ×2 (00:55→10:00)
[2023-04-15 04:00] VITALS: BP 126/73; PULSE 73; RESP 16; TEMP 36.3; O2SAT 97; BMI 33.1
[2023-04-15] MEDS: VANCOMYCIN/WATER FOR INJ (PEG) 1.25 GM/250 ML PIGGYBACK IV (04:56)
[2023-04-15] MEDS: humaLOG 100 UNITS/ML 3ML VIAL (SSI) SQ ×2 (05:02→11:55)
[2023-04-15 05:09] LABS: POC Glucose,Bedside 183 (70-110)
--- NOTE | 2023-04-15 06:39 | PC.NURSE ---
PT A/OX4. PT C/O A HEADACHE 1X T/O NIGHT. Fred CARMONA MADE AWARE AND IBUPROFEN 400MG WAS ADMINISTERED - PT STATES FAVORABLE RESULTS. PT ABLE TO AMBULATE TO BR INDEPENDENTLY. REMAINS ON RA, TOLERATING WELL W/ SAT IN UPPER 90S. VSS. CALL LIGHT WITHIN REACH.
[2023-04-15] MEDS: LEVOTHYROXINE 88MCG (0.088MG) TAB 88 MCG PO (06:50)
[2023-04-15 07:41] VITALS: BP 108/58; PULSE 81; RESP 18; TEMP 36.7; O2SAT 98
[2023-04-15] MEDS: HEPARIN SODIUM 5,000 UNIT/ML VIAL 5000 UNIT SQ (10:01)
[2023-04-15 11:52] LABS: POC Glucose,Bedside 326 (70-110)
--- NOTE | 2023-04-16 14:04 | CARE MANAGER ---
Called and spoke with patient regarding recent discharge. Patient stated that she is doing well, has started new medication, and has scheduled f/u appt with PCP. No questions or concerns voiced at time of call.
--- NOTE | 2023-05-07 16:15 | P.DS_ITS ---
General Admission date:: 04/13/23 Discharge date: 04/15/23 HPI HPI HPI: 67 year old female presented to [facility] ED for c/o feeling ill and chest pain that started at 1 p.m. PMHX of HTN, HLD, DM, and hypothyroid. Patient states that for the past couple of months, she has been having a popping/bubbling sound when she bends over and then stands up. It starts in her lower abdomen, radiates up toward her neck. Not associated with any other symptoms. She was eating lunch when she noticed her abdomen started to cramp and she felt nausea. She denies chest pain upon admission and feels much better. She is requesting to eat. She has LUQ tenderness on exam. Her ED workup revealed a leukocytosis of 16.1, lactic of 4.1, p.h of 7.4, c02 of 33, and bicarb of 21. Her UA was negative, troponins negative, chest xray negative for abnormalities, and CTA of chest and abdomen negative for infection. She was started on broad spectrum antibiotics and given 2L of fluids with blood cultures pending. The ED physician consulted the hospitalist team for further medical management. The pt was admitted to the medical floor for further treatment of sepsis with unknown source. Hospital Course Hospital Course Hospital Course: Patient was seen and evaluated at the bedside on the day of discharge. Patient wishes to be discharged. All patient questions were answered and patient was given time to ask questions. Patient was discharged in stable condition. Patient understands that she can return to ER in case of any sudden changes in health. Total time spent on DC - 38 mins 67 year old female presented to [facility] ED for c/o feeling ill and chest pain that started at 1 p.m. PMHX of HTN, HLD, DM, and hypothyroid. Patient states that for the past couple of months, she has been having a popping/bubbling sound when she bends over and then stands up. It starts in her lower abdomen, radiates up toward her neck. Not associated with any other symptoms. She was eating lunch when she noticed her abdomen started to cramp and she felt nausea. She denies chest pain upon admission and feels much better. She is requesting to eat. She has LUQ tenderness on exam. Her ED workup revealed a leukocytosis of 16.1, lactic of 4.1, p.h of 7.4, c02 of 33, and bicarb of 21. Her UA was negative, troponins negative, chest xray negative for abnormalities, and CTA of chest and abdomen negative for infection. She was started on broad spectrum antibiotics and given 2L of fluids with blood cultures pending. The ED physician consulted the hospitalist team for further medical management. The pt was admitted to the medical floor for further treatment of sepsis with unknown source. SEPSIS - unclear source - improved -EKG reviewed and reveals sinus tachycardia. No ST elevation DC on oral Doxycycline and levofloxacin DM - stable HYPOTHYROIDISM - f/u as OP with PCP HTN OBESITY -complicates all aspects of care Exam Data for Last 24 hours Vital signs and Labs for Last 24 Hours: Temp Pulse Resp BP Pulse Ox O2 Del Method 98.1 F 81 18 108/58 L 98 Room Air 04/15/23 07:41 04/15/23 07:41 04/15/23 07:41 04/15/23 07:41 04/15/23 07:41 04/15/23 07:41 Constitutional Constitutional: no acute distress *Routine HEENT Exam Head: Present normocephalic Eye: Present EOMI and PERRL ENT: Present mucous membranes moist *Routine Neck Exam Neck: Present supple; Absent lymphadenopathy *Routine Respiratory Exam Respiratory: Present CTA bilaterally *Routine Cardiovascular Exam Cardiovascular: Present RRR *Routine Abdominal Exam Abdominal: Present soft and normoactive bowel sounds; Absent tenderness *Routine Extremities Exam Extremities: Absent cyanosis, clubbing or edema *Routine Skin Exam Skin: Present warm; Absent rash *Routine Neurological Exam Neurological: Present alert and oriented X3 DS: Diagnosis Discharge Diagnosis (1) Sepsis: Status: Acute Code(s): A41.9 - Sepsis, unspecified organism Qualifiers: Sepsis acute organ dysfunction status: with acute organ dysfunction Sepsis type: sepsis due to unspecified organism Severe sepsis acute organ dysfunction type: unspecified Severe sepsis shock status: without septic shock Qualified Code(s): A41.9 - Sepsis, unspecified organism; R65.20 - Severe sepsis without septic shock (2) Diabetes mellitus: Status: Acute Code(s): E11.9 - Type 2 diabetes mellitus without complications Qualifiers: Diabetes mellitus type: type 2 (3) Hypothyroidism: Status: Chronic Code(s): E03.9 - Hypothyroidism, unspecified Qualifiers: Hypothyroidism type: acquired Qualified Code(s): E03.9 - Hypothyroidism, unspecified (4) Hypertension: Status: Chronic Code(s): I10 - Essential (primary) hypertension Qualifiers: Hypertension type: primary hypertension Qualified Code(s): I10 - Essential (primary) hypertension (5) Obesity: Status: Acute Code(s): E66.9 - Obesity, unspecified Qualifiers: Body mass index: BMI 38.0-38.9 Obesity classification: adult class 2 (BMI 35 - 39.9) Obesity type: due to excess calories Meds Home Medications and Allergies Home Medications Medication Instructions Recorded Confirmed Type glimepiride 4 mg tablet 8 mg PO DAILY Diabetes 01/27/18 04/13/23 History levothyroxine 88 mcg tablet 88 mcg PO DAILY hypothyroidism 01/27/18 04/14/23 History metformin 1,000 mg tablet 1,000 mg PO 1200,1700 Diabetes 11/29/21 04/14/23 His tory semaglutide 14 mg tablet (Rybelsus) 14 mg PO DAILYDM Diabetes 11/29/21 04/14/23 History amlodipine 5 mg tablet 5 mg PO DAILY hypertension 09/18/22 04/13/23 History cyclobenzaprine 5 mg tablet 5 mg PO TIDP PRN MUSCLE SPASMS 04/14/23 04/14/23 History omeprazole 20 mg capsule,delayed 20 mg PO DAILY GERD 04/14/23 04/14/23 History release doxycycline hyclate 100 mg tablet 100 mg PO BID #20 tabs 04/15/23 Rx levofloxacin 750 mg tablet 750 mg PO DAILY #10 tabs 04/15/23 Rx New Prescriptions to Start Prescriptions: doxycycline hyclate Yobani,Irfan levofloxacin Yobani,Irfan Allergies Allergy/AdvReac Type Severity Reaction Status Date / Time chlordiazepoxide Allergy Unknown Verified 09/18/22 16:47 [From LIBRAX (WITH CLIDINIUM)] clidinium Allergy Unknown Verified 09/18/22 16:47 [From LIBRAX (WITH CLIDINIUM)] iodine [IODINE] Allergy Unknown Verified 09/18/22 16:47 Penicillins [PENICILLINS] Allergy Unknown Rash Verified 09/18/22 16:47 Sulfa (Sulfonamide Allergy Unknown Rash Verified 09/18/22 16:47 Antibiotics) [SULFA (SULFONAMIDE ANTIBIOTICS)] morphine Allergy Chest Pain Verified 09/18/22 16:47 Discharge Plan Disposition Patient Disposition: Home, Self-Care Condition: Good Follow up Plan Prescriptions/Medication Reconciliation: New levofloxacin 750 mg tablet 750 mg PO DAILY Qty: 10 0RF doxycycline hyclate 100 mg tablet 100 mg PO BID Qty: 20 0RF Continued metformin 1,000 mg tablet 1,000 mg PO 1200,1700 Patient Comments: TAKE 1 TABLET BY MOUTH TWICE DAILY WITH A MEAL Rybelsus 14 mg tablet 14 mg PO DAILYDM amlodipine 5 mg tablet 5 mg PO DAILY Patient Comments: TAKE 1 TABLET BY MOUTH EVERY DAY levothyroxine 88 MCG tablet 88 mcg PO DAILY glimepiride 4 MG tablet 8 mg PO DAILY omeprazole 20 mg capsule,delayed release(DR/EC) 20 mg PO DAILY Patient Comments: TAKE 1 CAPSULE BY MOUTH DAILY 30 MINUTES BEFORE BREAKFAST cyclobenzaprine 5 mg tablet 5 mg PO TIDP PRN (Reason: MUSCLE SPASMS) Patient Comments: TAKE 1 TABLET BY MOUTH THREE TIMES DAILY DIRECTED Problem Reconciliation Problems Reviewed?: Yes Patient Discharge Instructions ACTIVITY: Ambulate as tolerated Providers Primary Care Provider: Edith King Admit Provider: Chuck Hilton Attending Provider: Chuck Hilton
== END 2023-04-15 12:39 | disposition home or self-care (01) ==
LOC: ER 15:42 → 2ND 19:25
PROVIDERS: Nurse Practitioner Critical Care Medicine; Admitting Provider Internal Medicine; Emergency Provider Emergency Medicine; PCP Family Medicine; Visit Provider Internal Medicine
DX: A41.9 Sepsis, unspecified organism (principal); R65.20 Severe sepsis without septic shock; E11.9 Type 2 diabetes mellitus without complications; E03.9 Hypothyroidism, unspecified; I10 Essential (primary) hypertension; E66.9 Obesity, unspecified; Z68.33 Body mass index [BMI] 33.0-33.9, adult; Z79.84 Long term (current) use of oral hypoglycemic drugs; Z79.85 Long-term (current) use of injectable non-insulin antidiabetic drugs
CPT/HCPCS: 36415; 71045; 71275; 74174; 80048; 80053; 81001; 82803; 82962; 83036; 83605; 83690; 83735; 83880; 84436; 84443; 84484; 85007; 85025; 85378; 87040; 93005; 99291; G0378; J2405; Q9967

== ENCOUNTER 2023-05-26 12:33 | Emergency (ER) | payer MEDICARE, OTHER, SELFPAY ==
[2023-05-26 12:45] VITALS: BP 143/90; PULSE 98; RESP 18; TEMP 36.6; O2SAT 97; BMI 33.7
--- NOTE | 2023-05-26 12:50 | XR_ITS ---
PROCEDURE INFORMATION: Exam: XR Right Elbow Exam date and time: 05/26/2023 12:55 PM Age: 67 years old Clinical indication: Pain; Elbow; Right; Additional info: Was caught in operating table TECHNIQUE: Imaging protocol: Radiologic exam of the right elbow. Views: 3 or more views. COMPARISON: CR Forearm R 05/26/2023 12:54 PM FINDINGS: Bones/joints: No visible fracture or dislocation. No joint effusion. Small enthesophytes along the humeral epicondyles bilaterally. Soft tissues: Normal. IMPRESSION: No visible fracture or dislocation.
--- NOTE | 2023-05-26 12:50 | XR_ITS ---
PROCEDURE INFORMATION: Exam: XR Right Hand Exam date and time: 05/26/2023 12:52 PM Age: 67 years old Clinical indication: Pain; Hand; Right; Additional info: States she had her arm caught in operating table TECHNIQUE: Imaging protocol: Radiologic exam of the right hand. Views: 3 or more views. COMPARISON: CR Wrist R 05/26/2023 12:50 PM FINDINGS: Bones/joints: No visible fracture or dislocation. Soft tissues: Normal. IMPRESSION: No visible fracture or dislocation.
--- NOTE | 2023-05-26 12:50 | XR_ITS ---
PROCEDURE INFORMATION: Exam: XR Right Wrist Exam date and time: 05/26/2023 12:50 PM Age: 67 years old Clinical indication: Pain; Wrist; Right; Additional info: Had arm caught in operating table TECHNIQUE: Imaging protocol: Radiologic exam of the right wrist. Views: 3 or more views. COMPARISON: No relevant prior studies available. FINDINGS: Bones/joints: No visible fracture or dislocation. Soft tissues: Normal. IMPRESSION: No visible fracture or dislocation.
--- NOTE | 2023-05-26 12:50 | XR_ITS ---
PROCEDURE INFORMATION: Exam: XR Right Forearm Exam date and time: 05/26/2023 12:54 PM Age: 67 years old Clinical indication: Pain; Lower or forearm; Right; Additional info: Had arm caught in operating table TECHNIQUE: Imaging protocol: Radiologic exam of the right forearm. Views: 2 views. COMPARISON: CR Hand R 05/26/2023 12:52 PM FINDINGS: Bones/joints: No visible fracture or dislocation. Soft tissues: Normal. IMPRESSION: No visible fracture or dislocation.
--- NOTE | 2023-05-26 13:07 | EXP.UTC ---
Discharge Plan Disposition Patient Disposition: Home, Self-Care Condition: Good Prescriptions Prescriptions: No Action metformin 1,000 mg tablet 1,000 mg PO 1200,1700 Patient Comments: TAKE 1 TABLET BY MOUTH TWICE DAILY WITH A MEAL Rybelsus 14 mg tablet 14 mg PO DAILYDM amlodipine 5 mg tablet 5 mg PO DAILY Patient Comments: TAKE 1 TABLET BY MOUTH EVERY DAY levothyroxine 88 MCG tablet 88 mcg PO DAILY glimepiride 4 MG tablet 8 mg PO DAILY omeprazole 20 mg capsule,delayed release(DR/EC) 20 mg PO DAILY Patient Comments: TAKE 1 CAPSULE BY MOUTH DAILY 30 MINUTES BEFORE BREAKFAST cyclobenzaprine 5 mg tablet 5 mg PO TIDP PRN (Reason: MUSCLE SPASMS) Patient Comments: TAKE 1 TABLET BY MOUTH THREE TIMES DAILY DIRECTED levofloxacin 750 mg tablet 750 mg PO DAILY Qty: 10 0RF doxycycline hyclate 100 mg tablet 100 mg PO BID Qty: 20 0RF Referrals Follow up/Referrals: Edith King MD [Primary Care Provider] - See instructions Activity Restrictions/Add. Instructions Additional Instructions/Restrictions: FOLLOW UP WITH SURGEON CALL [facility] FOR ANY ISSUES RETURN IF SYMPTOMS WORSEN OR NO IMPROVEMENT Clinical Impressions Clinical Impression: Arm pain, right Instructions Patient Instructions: DI for Arm Pain Discharge ED Provider: Cruz ([facility])Karyn [facility] HPI General Stated complaint: surg. 05/21, left shoulder and arm pain Mode of Arrival: Ambulatory Source of Information: Patient Limitations: No Limitations Time Seen by Provider: 05/26/23 12:57 Description of Symptoms (Recalled from Triage Doc. by RN): PATIENT C/O PAIN TO RIGHT HAND, WRIST, FOREARM AND ELBOW. SHE STATES SHE RECENTLY HAD CERVICLE SURGERY AND WHILE SHE WAS THERE A TABLE WAS PUSHED AGAINST HER ARM HEENT Symptoms (Recalled from RN notes): No Resp Symptoms (Recalled from RN notes): No Skin Symptoms (Recalled from RN notes): No MS Symptoms (Recalled from RN notes): Yes Functional Status (Recalled from RN notes): WNL History of Present Illness Provider Complaint: 67 YR OLD FEMALE PRESENTS FOR C/O PAIN TO RIGHT HAND, WRIST, FOREARM AND ELBOW. SHE STATES SHE RECENTLY HAD CERVICLE SURGERY AND WHILE SHE WAS THERE A TABLE WAS PUSHED AGAINST HER ARM. PT STATES SHE INFORMED THEM AT [facility] THAT HER ARM WAS HURTING AND THEY DID NOTHING. Related Data Home Medications Medication Instructions Recorded Confirmed glimepiride 4 mg tablet 8 mg PO DAILY Diabetes 01/27/18 04/13/23 levothyroxine 88 mcg tablet 88 mcg PO DAILY hypothyroidism 01/27/18 04/14/23 metformin 1,000 mg tablet 1,000 mg PO 1200,1700 Diabetes 11/29/21 04/14/23 semaglutide 14 mg tablet (Rybelsus) 14 mg PO DAILYDM Diabetes 11/29/21 04/14/23 amlodipine 5 mg tablet 5 mg PO DAILY hypertension 09/18/22 04/13/23 cyclobenzaprine 5 mg tablet 5 mg PO TIDP PRN MUSCLE SPASMS 04/14/23 04/14/23 omeprazole 20 mg capsule,delayed 20 mg PO DAILY GERD 04/14/23 04/14/23 release Previous Rx's Medication Instructions Recorded doxycycline hyclate 100 mg tablet 100 mg PO BID #20 tabs 04/15/23 levofloxacin 750 mg tablet 750 mg PO DAILY #10 tabs 04/15/23 Allergies Allergy/AdvReac Type Severity Reaction Status Date / Time chlordiazepoxide Allergy Unknown Verified 09/18/22 16:47 [From LIBRAX (WITH CLIDINIUM)] clidinium Allergy Unknown Verified 09/18/22 16:47 [From LIBRAX (WITH CLIDINIUM)] iodine [IODINE] Allergy Unknown Verified 09/18/22 16:47 Penicillins [PENICILLINS] Allergy Unknown Rash Verified 09/18/22 16:47 Sulfa (Sulfonamide Allergy Unknown Rash Verified 09/18/22 16:47 Antibiotics) [SULFA (SULFONAMIDE ANTIBIOTICS)] morphine Allergy Chest Pain Verified 09/18/22 16:47 Worker's Comp Is this a Worker's Comp case?: No [facility] Disclaimer: The information contained in this section may have been updated after the patient was seen, as this information can be updated by other users. 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) Family history of GERD Breast cancer Endometrial cancer Hypertension 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 , 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) Smoking Status: Never smoker alcohol intake: never substance use type: denies use current occupational status: employed and other Travel in the last 8 weeks: None household members: family housing: house lives independently: No education level: high school service: No pets and animals: No ROS Obtained: Yes All systems reviewed & no additional complaints except as documented Constitutional Constitutional: Reports system reviewed and no additional complaints, except as documented Eyes Eyes: Reports system reviewed and no additional complaints, except as documented ENT Ears, Nose, Mouth, and Throat: Reports system reviewed and no additional complaints, except as documented Cardiovascular Cardiovascular: Reports system reviewed and no additional complaints, except as documented Respiratory Respiratory: Reports system reviewed and no additional complaints, except as documented Gastrointestinal Gastrointestingal: Reports system reviewed and no additional complaints, except as documented Musculoskeletal Musculoskeletal: Reports system reviewed and no additional complaints, except as documented, Reports as per HPI and Reports arthralgias Integumentary/Breasts Skin/Breast: Reports system reviewed and no additional complaints, except as documented Neurologic Neurologic: Reports system reviewed and no additional complaints, except as documented Endocrine Endocrine: Reports system reviewed and no additional complaints, except as documented Hematologic/Lymphatic Henatologic/Lymphatic: Reports system reviewed and no additional complaints, except as documented Allergic/Immunologic Allergic/Immunologic: Reports system reviewed and no additional complaints, except as documented Physical Exam General General appearance: alert and in no apparent distress Head Head exam: atraumatic Eye Eye exam: Present normal appearance and PERRL ENT ENT exam: Present normal exam, normal oropharynx, mucous membranes moist and TM's normal bilaterally Respiratory Respiratory exam: Present normal lung sounds bilaterally Cardiovascular Cardiovascular exam: Present regular rate and normal rhythm Extremities Exam Extremities exam: Present normal inspection and normal capillary refill Expanded Upper Extremity Exam Right: L/R Arms Top View: 1. TENDERNESS 2. TENDERNESS Vascular exam: Normal capillary refill, radial pulse and ulnar pulse Neurological Exam Neurological exam: Present alert and oriented X3 Skin Skin exam: Present warm and intact Medical Decision Making Medical Records Medical records reviewed: Yes I reviewed the patient's medical records. Kam Inquiry Pt receiving controlled substance: No Kam was queried for this patient: No Vital Signs: 05/26/23 12:45 Temperature 97.8 F Temperature Source Oral Pulse Rate [Left Brachial] 98 H Respiratory Rate 18 Blood Pressure [Left Arm] 143/90 H Blood Pressure Mean [Left Arm] 107 Blood Pressure Source [Left Arm] Automatic Cuff Blood Pressure Position [Left Arm] Sitting 02 Sat by Pulse Oximetry 97 Oxygen Delivery Method Room Air Orders (Tests/Meds): ORDERS Category Date Time Status XR elbow RT min 3V Stat Exams 05/26/23 12:50 Ordered XR forearm RT 2V Stat Exams 05/26/23 12:50 Ordered XR hand RT min 3V Stat Exams 05/26/23 12:50 Ordered XR wrist RT min 3V Stat Exams 05/26/23 12:50 Ordered
[2023-05-26 14:01] VITALS: BP 143/90; PULSE 98; RESP 18; TEMP 36.6; O2SAT 97
== END 2023-05-26 14:02 | disposition home or self-care (01) ==
PROVIDERS: Emergency Provider Nurse Practitioner Family; PCP Family Medicine
DX: M79.601 Pain in right arm (principal); E11.9 Type 2 diabetes mellitus without complications; K21.9 Gastro-esophageal reflux disease without esophagitis; E03.9 Hypothyroidism, unspecified; I10 Essential (primary) hypertension; Z79.84 Long term (current) use of oral hypoglycemic drugs
CPT/HCPCS: 73080; 73090; 73110; 73130; 99212; 99214; G0463

== ENCOUNTER 2023-07-03 08:24 | Inpatient (IN) | payer MEDICARE, OTHER, SELFPAY ==
[2023-07-03] VITALS (16 sets, daily range): BP systolic 105–158; BP diastolic 56–83; PULSE 99–138; RESP 16–22; TEMP 36.4–36.8; O2SAT 91–97; BMI 32.1
[2023-07-03 08:35] LABS: Microscopic, Urine URINE MICROSCOPIC (MICROSCOPIC)
[2023-07-03 08:37] LABS: Appearance,Urine CLEAR (Clear); Blood, Urine Negative (Negative); Color,Urine YELLOW (Yellow); Glucose,Urine (UA) 3+ (Negative); Ketones,Urine 2+ (Negative); Leukocyte Esterase,Urine Negative (Negative); Nitrate,Urine Negative (Negative); Protein,Urine 1+ (Negative); Urobilinogen,Urine 0.2 EU/dl (0.2)
[2023-07-03 08:45] LABS: Bilirubin,Urine 1+ (Negative)
[2023-07-03] MEDS: ONDANSETRON 4MG/2ML VIAL 4 MG IV (08:59)
[2023-07-03] MEDS: LACTATED RINGERS 1000ML 1,780 ML 890 ML IV (08:59)
[2023-07-03 09:05] LABS: Basophils # 0.1 K/mm3 (0-0.2); Basophils % 0.5 % (0.1-2.0); Eosinophils # 0.2 K/mm3 (0.0-0.4); Eosinophils % 1.5 % (0.1-12.0); Hemoglobin 15.8 g/dL (12.2-16.2); Lymphocytes # 1.3 K/mm3 (0.7-4.5); Lymphocytes % 9.9 % (10-50); Mean Corpuscular Hemoglobin 29.5 pg (27.0-31.2); Mean Corpuscular Volume 89.6 fl (81-99); Mean Platelet Volume 11.1 fl (7.4-10.4); Monocytes # 0.5 K/mm3 (0.1-1.0); Monocytes % 3.6 % (1.7-9.3); Neutrophils % 84.5 % (37.0-80.0); Platelet Count 232 K/mm3 (142-424); Red Blood Count 5.36 M/mm3 (4.20-5.40); Red Cell Distribution Width 14.5 % (11.5-17.5)
[2023-07-03 09:07] LABS: Alanine Aminotransferase 49 U/L (12-78); Albumin Level 4.5 g/dl (3.5-5.0); Albumin/Globulin Ratio 1.6 (1.1-1.8); Alkaline Phosphatase 110 U/L (38-126); Anion Gap 24.1 mEq/L (5-15); Aspartate Amino Transferase 53 U/L (14-36); Bilirubin,Total 1.5 mg/dl (0.2-1.3); Blood Urea Nitrogen 8 mg/dl (7-17); Calcium 9.9 mg/dl (8.4-10.2); Carbon Dioxide 17 mmol/L (22.0-30.0); Chloride 99 mmol/L (98-107); Creatinine Clearance Estimated 77 mL/min (50-200); Estimated Glomerular Filt Rate 99 ml/min (>60); GFR (African American) 120 ML/MIN (>60); Globulin 2.9 g/dL (1.3-3.2); Glucose 376 mg/dl (74-100); Lipase 136 U/L (23-300); Potassium 4.1 mmoL/L (3.5-5.1); Sodium 136 mmol/L (136-145); Total Protein,Serum 7.4 g/dl (6.3-8.2)
[2023-07-03 09:13] LABS: Lactic Acid 5.9 mmol/L (0.7-2.1)
--- NOTE | 2023-07-03 09:15 | PC.NURSE ---
KAT Almaraz took critical from lab, repeated and verified, notified
--- NOTE | 2023-07-03 09:20 | HMH.EDGENADL ---
Discharge Plan Disposition Patient Disposition: Admitted Chief Complaint: Nausea/Vomiting/Diarrhea Prescriptions Prescriptions: No Action metformin 1,000 mg tablet 1,000 mg PO 1200,1700 Patient Comments: TAKE 1 TABLET BY MOUTH TWICE DAILY WITH A MEAL Rybelsus 14 mg tablet 14 mg PO DAILYDM amlodipine 5 mg tablet 5 mg PO DAILY Patient Comments: TAKE 1 TABLET BY MOUTH EVERY DAY levothyroxine 88 MCG tablet 88 mcg PO DAILY glimepiride 4 MG tablet 8 mg PO DAILY omeprazole 20 mg capsule,delayed release(DR/EC) 20 mg PO DAILY Patient Comments: TAKE 1 CAPSULE BY MOUTH DAILY 30 MINUTES BEFORE BREAKFAST cyclobenzaprine 5 mg tablet 5 mg PO TIDP PRN (Reason: MUSCLE SPASMS) Patient Comments: TAKE 1 TABLET BY MOUTH THREE TIMES DAILY DIRECTED levofloxacin 750 mg tablet 750 mg PO DAILY Qty: 10 0RF doxycycline hyclate 100 mg tablet 100 mg PO BID Qty: 20 0RF Referrals Follow up/Referrals: Edith King MD [Primary Care Provider] - See instructions Clinical Impressions Clinical Impression: Partial obstruction of small intestine, Sepsis Instructions Patient Instructions: DI for Diarrhea and Traveler's Diarrhea -- Adult, DI for Diarrhea and Traveler's Diarrhea -- Child, DI for Nausea -- Adult, DI for Nausea -- Child Discharge ED Provider: Jurgen Beebe General Adult HPI General Chief complaint: Nausea/Vomiting/Diarrhea Stated complaint: vomiting, fever Time Seen by Provider: 07/03/23 08:26 Mode of Arrival: Ambulatory Source of Information: Patient Limitations: No Limitations Description of Symptoms (Recalled from ER Triage Doc. by RN): Patient reports N/V/D since 2am this morning. Also states she had a fever as well. Complaint of some stomach cramping as well. History of Present Illness HPI narrative: Please note that above description of symptoms, in this electronic medical record under categorization of recalled from ER triage doctor by RN are reflective of an initial nursing assessment, however, is not reflective of my full history and physical exam that was personally taken and clarified. Consequentially, this preceding description of symptoms, which may include the patient's categorized chief complaint in the EMR, do not reflect my personal clinical impression, and the ultimate description of history of present illness and patient stated complaints should be deferred to this section of the note. Unless stated otherwise or congruent with this section of the note, additional signs, symptoms, or incongruence should be interpreted as inaccurate with my clinical impression. Related Data Home Medications Medication Instructions Recorded Confirmed glimepiride 4 mg tablet 8 mg PO DAILY Diabetes 01/27/18 04/13/23 levothyroxine 88 mcg tablet 88 mcg PO DAILY hypothyroidism 01/27/18 04/14/23 metformin 1,000 mg tablet 1,000 mg PO 1200,1700 Diabetes 11/29/21 04/14/23 semaglutide 14 mg tablet (Rybelsus) 14 mg PO DAILYDM Diabetes 11/29/21 04/14/23 amlodipine 5 mg tablet 5 mg PO DAILY hypertension 09/18/22 04/13/23 cyclobenzaprine 5 mg tablet 5 mg PO TIDP PRN MUSCLE SPASMS 04/14/23 04/14/23 omeprazole 20 mg capsule,delayed 20 mg PO DAILY GERD 04/14/23 04/14/23 release Previous Rx's Medication Instructions Recorded doxycycline hyclate 100 mg tablet 100 mg PO BID #20 tabs 04/15/23 levofloxacin 750 mg tablet 750 mg PO DAILY #10 tabs 04/15/23 Allergies Allergy/AdvReac Type Severity Reaction Status Date / Time chlordiazepoxide Allergy Unknown Verified 09/18/22 16:47 [From LIBRAX (WITH CLIDINIUM)] clidinium Allergy Unknown Verified 09/18/22 16:47 [From LIBRAX (WITH CLIDINIUM)] iodine [IODINE] Allergy Unknown Verified 09/18/22 16:47 Penicillins [PENICILLINS] Allergy Unknown Rash Verified 09/18/22 16:47 Sulfa (Sulfonamide Allergy Unknown Rash Verified 09/18/22 16:47 Antibiotics) [SULFA (SULFONAMIDE ANTIBIOTICS)] morphine Allergy Chest Pain Verified 09/18/22 16:47 [facility] Disclaimer: The information contained in this section may have been updated after the patient was seen, as this information can be updated by other users. 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) Family history of GERD Breast cancer Endometrial cancer Hypertension 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 , 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) Smoking Status: Unknown if ever smoked alcohol intake: never substance use type: denies use current occupational status: employed and other Travel in the last 8 weeks: None household members: family housing: house lives independently: No education level: high school service: No pets and animals: No ROS Obtained: Yes All systems reviewed & no additional complaints except as documented Physical Exam General General appearance: alert and in distress (Secondary to vomiting) Head Head exam: atraumatic and normocephalic Eye Eye exam: Present normal appearance, PERRL and EOMI ENT ENT exam: Present mucous membranes dry Neck Neck exam: Present normal inspection, full ROM and trachea midline Respiratory Respiratory exam: Present normal lung sounds bilaterally; Absent respiratory distress, wheezes, stridor, accessory muscle use or prolonged expiratory phase Cardiovascular Cardiovascular exam: Present normal rhythm and tachycardia Abdominal Exam Abdominal exam: Present soft; Absent distention, tenderness, guarding, rebound or rigidity Extremities Exam Extremities exam: Absent edema Neurological Exam Neurological exam: Present alert, oriented X3, CN II-XII intact and normal gait; Absent motor sensory deficit Skin Skin exam: Present warm and dry; Absent diaphoresis or erythema Medical Decision Making Medical Records Medical records reviewed: Yes I reviewed the patient's medical records. Kam Inquiry Pt receiving controlled substance: No Kam was queried for this patient: No Vital Signs: 07/03/23 08:26 07/03/23 09:50 07/03/23 10:00 Temperature 97.5 F L Temperature Source Oral Pulse Rate 124 H 125 H Pulse Rate [Radial] 138 H Respiratory Rate 16 20 20 Blood Pressure 117/63 126/72 Blood Pressure [Right Arm] 158/83 H Blood Pressure Mean Blood Pressure Mean [Right Arm] 108 Blood Pressure Source [Right Arm] Automatic Cuff Blood Pressure Position [Right Arm] Sitting 02 Sat by Pulse Oximetry 94 L 93 L 93 L Oxygen Delivery Method Room Air 07/03/23 10:30 07/03/23 11:30 07/03/23 12:00 Temperature Temperature Source Pulse Rate 119 H 117 H Pulse Rate [Radial] Respiratory Rate 20 22 20 Blood Pressure 122/65 122/64 125/65 Blood Pressure [Right Arm] Blood Pressure Mean 77 Blood Pressure Mean [Right Arm] Blood Pressure Source [Right Arm] Blood Pressure Position [Right Arm] 02 Sat by Pulse Oximetry 95 92 L Oxygen Delivery Method 07/03/23 12:30 07/03/23 13:00 Temperature Temperature Source Pulse Rate 107 H 108 H Pulse Rate [Radial] Respiratory Rate 20 19 Blood Pressure 111/56 L 115/69 Blood Pressure [Right Arm] Blood Pressure Mean Blood Pressure Mean [Right Arm] Blood Pressure Source [Right Arm] Blood Pressure Position [Right Arm] 02 Sat by Pulse Oximetry 95 92 L Oxygen Delivery Method Lab Data Lab Results 07/03/23 08:30: Urine Color Yellow, Urine Appearance Clear, Urine pH 6.0, Ur Specific [place] 1.020, Urine Protein 1+, Urine Glucose (UA) 3+, Urine Ketones 2+, Urine Blood Negative, Urine Nitrate Negative, Urine Bilirubin 1+ A, Urine Urobilinogen 0.2, Ur Leukocyte Esterase Negative, Urine RBC None, Urine WBC Occasional, Ur Squamous Epith Cells 5-10, Urine Bacteria None 07/03/23 08:49: WBC 13.0 H, RBC 5.36, Hgb 15.8, Hct 48.0 H, MCV 89.6, MCH 29.5, MCHC 33.0, RDW 14.5, Plt Count 232, MPV 11.1 H, Neut % (Auto) 84.5 H, Lymph % (Auto) 9.9 L, [place] % (Auto) 3.6, Eos % (Auto) 1.5, Baso % (Auto) 0.5, Neut # (Auto) 11.0 H, Lymph # (Auto) 1.3, [place] # (Auto) 0.5, Eos # (Auto) 0.2, Baso # (Auto) 0.1, Sodium 136, Potassium 4.1, Chloride 99, Carbon Dioxide 17 L, Anion Gap 24.1 H, BUN 8, Creatinine 0.60, Estimated Creat Clear 77, Estimated GFR 99, Est GFR ( Amer) 120, Glucose 376 H, Lactate 5.9 H, Calcium 9.9, Total Bilirubin 1.5 H, AST 53 H, ALT 49, Alkaline Phosphatase 110, Troponin I < 0.01, Total Protein 7.4, Albumin 4.5, Globulin 2.9, Albumin/Globulin Ratio 1.6, Lipase 136 07/03/23 09:45: VBG pH 7.35, VBG pCO2 29.3 L, VBG pO2 87.7 H, VBG HCO3 15.9 L, VBG Total CO2 16.8 L, VBG O2 Saturation 97.2 H, VBG Base Excess -9.7 L, VBG Lactic Acid 5.0 H 07/03/23 08:49 07/03/23 08:49 Orders (Tests/Meds): ED MEDICATIONS Generic Name Dose Route Start Last Admin Trade Name Freq PRN Reason Stop Dose Admin Lactated Ringer's 1,000 mls @ 100 mls/hr 07/03/23 13:30 Lactated Ringer's 1000 Ml Bag IV 08/02/23 13:29 .Q10H [facility] Insulin Human Lispro 0 unit 07/03/23 16:30 Humalog 100 Units/Ml 3ml Vial (Ssi) SQ 08/02/23 16:29 ACHS [facility] Protocol Miscellaneous 1 each 07/03/23 09:30 07/03/23 09:40 Vancomycin Consult Request NOTAPPLIC 08/02/23 09:29 1 each CONSULT PHARMACY [facility] Administration Ondansetron HCl 4 mg 07/03/23 13:28 Ondansetron 4mg/2ml Vial IV 08/02/23 13:27 Q8HP PRN Nausea Pantoprazole Sodium 40 mg 07/03/23 21:00 Pantoprazole 40mg Vial IV 08/02/23 20:59 HS [facility] Discontinued Medications Generic Name Dose Route Start Last Admin Trade Name Freq PRN Reason Stop Dose Admin Diphenhydramine HCl 25 mg 07/03/23 10:19 07/03/23 10:32 Diphenhydramine 50mg/Ml Vial IV 07/03/23 10:20 25 mg ONCE ONE Administration Lactated Ringer's 1,780 mls @ 890 mls/hr 07/03/23 08:48 07/03/23 08:59 Lactated Ringer's 1000 Ml Bag 30 ml/kg infuse over 2 hr (1780 ml) 07/03/23 10:47 890 mls/hr IV Administration .Q2H ONE Cefepime HCl 2 gm/ Sodium 100 mls @ 200 mls/hr 07/03/23 09:16 07/03/23 10:31 Chloride IV 07/03/23 09:45 200 mls/hr ONCE ONE Administration Metronidazole 500 mg in 100 mls @ 100 mls/hr 07/03/23 09:16 07/03/23 09:43 Flagyl 500mg/100ml Ivpb IV 07/03/23 10:15 100 mls/hr ONCE ONE Administration Vancomycin/PEG/NADA/Lysine/Water 1.5 gm in 300 mls @ 150 mls/hr 07/03/23 09:30 07/03/23 11:43 Vancomycin 1.5gm/300ml (Peg) Premix IV 07/03/23 11:29 150 mls/hr ONCE ONE Administration Iopamidol 100 ml 07/03/23 11:06 07/03/23 11:08 Iopamidol-370 (76%);100ml Bottle IV 07/03/23 11:07 100 ml ONCE ONE Administration Methylprednisolone Sodium Succinate 125 mg 07/03/23 10:19 07/03/23 10:32 Methylprednisolone Sod Succ 125mg Vial IV 07/03/23 10:20 125 mg ONCE ONE Administration Ondansetron HCl 4 mg 07/03/23 08:48 07/03/23 08:59 Ondansetron 4mg/2ml Vial IV 07/03/23 08:49 4 mg ONCE ONE Administration Sodium Chloride 50 ml 07/03/23 11:08 07/03/23 11:08 0.9 % Sodium Chloride 50 Ml Vial IV 07/03/23 11:09 50 ml ONCE ONE Administration Sodium Chloride 10 ml 07/03/23 11:08 07/03/23 11:08 Sodium Chloride 0.9% 10ml Syr (Rad Only) IV 07/03/23 11:09 10 ml ONCE ONE Administration ORDERS Category Date Time Status CT angio abdomen pelvis Stat Cat Scan 07/03/23 09:21 Completed Basic Metabolic Panel Routine Lab 07/03/23 18:00 Ordered Complete Blood Count Auto Diff AMLAB Lab 07/04/23 06:00 Ordered Complete Blood Count Auto Diff Stat Lab 07/03/23 08:49 Completed Comprehensive Metabolic Panel AMLAB Lab 07/04/23 06:00 Ordered Comprehensive Metabolic Panel Stat Lab 07/03/23 08:49 Completed Hemoglobin A1C Stat Lab 07/03/23 13:28 Ordered Lactic Acid Follow Up (RFLX 1) Stat Lab 07/03/23 13:20 Received Lactic Acid Stat Lab 07/03/23 08:49 Completed Lipase Stat Lab 07/03/23 08:49 Completed Magnesium AMLAB Lab 07/04/23 06:00 Ordered Troponin I Stat Lab 07/03/23 08:49 Completed UA [Urinalysis and Microscopic] Stat Lab 07/03/23 08:30 Completed Blood Culture Stat Micro 07/03/23 09:46 Received Venous Blood Gas Stat RT 07/03/23 09:45 Completed Medical Decision Narrative: This is a 67-year-old female with history of hypertension, hyperlipidemia, diabetes type 2, hypothyroidism, hysterectomy, cholecystectomy, appendectomy, numerous episodes of sepsis over the past few months, recent cervical fusion May 21, 2023 presenting with acute onset malaise. Patient states that last night, 07/01 she began feeling generally poorly. Abdominal cramping, vomiting, diarrhea. She states that her pain had all of a sudden, has not gotten any better. Associated with nonbloody, nonbilious vomiting, nonbloody diarrhea. Abdominal pain is diffuse, worse when she is vomiting. Last bowel movement was just prior to arrival. felt febrile, Tmax 100.1. No urinary symptoms. No recent unintended weight loss, yellowing of the skin or eyes, recent travel, new medications, or any other relevant history. History was obtained via conversation with patient. On arrival, patient hemodynamically stable, alert, [oriented x4, ][appropriate, ]GCS [15], moving all extremities spontaneously, pupils equal and reactive to light. Full physical exam performed and significant for very pleasant 67-year-old female who is tachycardic, intermittently retching and expelling nonbloody, nonbilious vomitus. Abdomen is soft, nondistended, but diffusely tender. No overlying skin changes. Cardiopulmonary exam within normal limits otherwise. No lower extremity edema. Differential includes PUD, gastritis, enteritis, gastroenteritis, pancreatitis, SBO, colitis, diverticulitis, nephrolithiasis, UTI, hepatitis, aortic pathology, mesenteric ischemia among others. Patient was given sepsis bolus LR, Zofran for symptomatic management[ and correction of underlying abnormalities]. Workup independently interpreted and significant for white count 13,000 with neutrophilia, lactic acid 5.9. Patient's chemistry with anion gap metabolic acidosis with gap of 24, CO2 low at 17 - all of this is concerning for sepsis. Troponin negative, BNP negative, urinalysis with glucose, ketones. CT abdomen pelvis with patent vasculature, but concern for partial small bowel obstruction with dilated loops. Also could be caused by gastroenteritis, NG tube to be placed either way. See radiology read for full review of final results. On reevaluation, patient feeling much better after fluids, Zofran. General surgery was contacted and case was discussed at length, recommended NG tube placement, likely medical management secondary to gastroenteritis based on patient's history, physical exam, and CT scan. Hospital medicine contacted and case was discussed at length, patient to be admitted. Given patient presentation, workup, history, this most likely represents partial small bowel obstruction and gastroenteritis. Because patient high risk for clinical decompensation, deemed appropriate for inpatient admission. Results were relayed to patient who voiced understanding and patient was agreeable to inpatient admission and management. Patient was admitted to the hospital for further definitive management. Bronze Chaser disclaimer Much of this encounter note is an electronic forest officer spoken language to printed text. Electronic forest officer of the spoken language may permit errors. Although I have reviewed the note, some errors may still exist. Critical Care Critical Care Time Critical Care Time: Yes (gi) Attestation: On 07/03/23, the high probability of a clinically significant, sudden or life threatening deterioration of the following system(s) required my full and direct attention, intervention and personal management. The time I documented below is in addition to time spent performing reported procedures but includes the following listed in this critical care notation. Total Time Total Critical Care Time: 45
[2023-07-03 09:21] LABS: Troponin I < 0.01 ng/ml (0.00-0.034)
--- NOTE | 2023-07-03 09:21 | CT_ITS ---
FINAL REPORT TECHNIQUE: Pre-and postcontrast images of the abdomen and pelvis were performed by computed tomography. Extensive 3-D reconstruction images were performed. A CTA was performed. This study was performed with techniques to keep radiation doses as low as reasonably achievable (ALARA). Individualized dose reduction techniques using automated exposure control or adjustment of mA and/or kV according to the patient''s size were employed. CLINICAL HISTORY: abd pain out opf proportion diffusely, comiting COMPARISON: 03/22/2022 FINDINGS: ABDOMEN/PELVIS: There is moderate diffuse fatty infiltration of the liver. The gallbladder is surgically absent. The spleen, pancreas, and adrenals are unremarkable. There is a 4 mm nonobstructing right renal stone. There are fluid-filled loops of small bowel measuring 4 cm in diameter in the proximal and mid small bowel. The distal small bowel is relatively decompressed. The can pattern is concerning for partial mid small bowel obstruction. The exact point of transition is not clearly identified. There is stranding in the midline of the anterior pelvic wall, probably due to prior surgery. The uterus is not identified, likely surgically absent. CTA: The abdominal aorta is proper caliber. The SMA, celiac axis, and ROME are patent. There is no significant stenosis or calcification. The renal arteries are patent bilaterally. IMPRESSION: No evidence of renal vascular hypertension or significant renal artery stenosis. Distension of proximal and mid small bowel concerning for partial small bowel obstruction. Reviewed, Interpreted and Dictated by Jasmeet Bach MD Transcribed by Bianka Palmer Authenticated and [facility]
[2023-07-03] MEDS: VANCOMYCIN CONSULT REQUEST 1 EACH NOTAPPLIC (09:40)
[2023-07-03] MEDS: METRONIDAZ/SOD CHL 500 MG/100 ML PIGGYBACK 100 MG IV ×2 (09:43→18:54)
[2023-07-03 09:55] LABS: VBG Base Excess -9.7 mmol/L (-2.4-2.3); VBG HCO3 15.9 mmol/L (23-30); VBG Oxygen Saturation 97.2 % (50-70); VBG PCO2 29.3 mmol/L (35-51); VBG PH 7.35 mmol/L (7.31-7.41); VBG PO2 87.7 mmol/L (28-40); VBG Total CO2 16.8 mmol/L (23-27)
[2023-07-03] MEDS: CEFEPIME HCL 2 GM in 0.9 % SODIUM CHLORIDE 100 ML IV ×2 (10:31→20:29)
[2023-07-03] MEDS: diphenhydrAMINE 50MG/ML VIAL 25 MG IV (10:32)
[2023-07-03] MEDS: METHYLPREDNISOLONE SOD SUCC 125MG VIAL 125 MG IV (10:32)
--- NOTE | 2023-07-03 10:50 | PC.NURSE ---
patient gone to CT at this time.
--- NOTE | 2023-07-03 10:56 | PC.NURSE ---
Reported VBG results to MD at this time
[2023-07-03] MEDS: 0.9 % SODIUM CHLORIDE 50 ML VIAL IV (11:08)
[2023-07-03] MEDS: IOPAMIDOL-370 (76%);100ML BOTTLE 100 ML IV (11:08)
[2023-07-03] MEDS: SODIUM CHLORIDE 0.9% 10ML SYR (RAD ONLY) 10 ML IV (11:08)
[2023-07-03 11:37] LABS: WBC,Urine Occasional #/hpf (0-3)
[2023-07-03] MEDS: VANCOMYCIN/WATER FOR INJ (PEG) 1.5 GM/300 ML PIGGYBACK IV (11:43)
--- NOTE | 2023-07-03 12:30 | PC.NURSE ---
Called radiology to check status of CT read. Per Radha CKR is reading it now. updated on this.
[2023-07-03 12:56] LABS: Reflex Lactic Add Lactic Reflex
--- NOTE | 2023-07-03 13:26 | PC.NURSE ---
in room talking with patient at this time.
--- NOTE | 2023-07-03 13:30 | EXP.HP ---
History of Present Illness *Admission Date: 07/03/23 *Reason for visit:: Intractable nausea and vomiting *History of present illness: Ms. Ayala is a 67-year-old female with history of hyperlipidemia, hypertension, diabetes, hypothyroid. History of significant abdominal surgeries including hysterectomy, cholecystectomy, appendectomy, ventral hernia repair. She presented to the ER because of onset of intractable nausea and vomiting accompanied with some diarrhea starting last night. Says she felt generally poor after eating out. Developed abdominal cramping, vomiting and a few loose stools. [place] similar to an episode several months ago where she was admitted for sepsis. States that pain began all of a sudden, and has not gotten better. Emesis is nonbloody. Abdominal pain is diffuse. Worse with vomiting. Struggles with regular bowel movements but did have bowel movement prior to presenting to the ER. Of note was resumed on her Rybelsus approximately 4 to 6 weeks ago. Initial exam remarkable for abdominal discomfort and emesis. Workup initiated with findings of leukocytosis of 13, anion gap metabolic acidosis, elevated lactic acid, hyperglycemia. Abdominal imaging obtained showing concern for partial SBO. Surgery consulted. NG placed for decompression. Patient administered IV fluids and showing some improvement clinically. Given lab abnormalities and concern for obstruction, medicine was consulted for admission and further management. After arriving to the floor, patient is feeling much better and requesting a cup of ice chips. Having mild dark green bilious output from NG. On room air. Belly soft and less painful on exam. She is concerned about presenting with sepsis. Feels this is similar to her previous admissions. Last admission in April with similar symptoms. Denies any fever or chills. No shortness of breath. Complaining of pain in the back of her throat from NG. Stable on room air. Has not passed any gas since admission. [facility] Disclaimer: The information contained in this section may have been updated after the patient was seen, as this information can be updated by other users. 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 DVT (deep venous thrombosis) Diabetes mellitus, type 2 Bladder cancer Kidney stones Left wrist fracture Ankle fracture, right UTI (urinary tract infection) Cholelithiases GERD (gastroesophageal reflux disease) Dermatitis Dermatitis Dermatitis Hypothyroidism Hypertension Endometrial cancer Surgical History History of lithotripsy H/O bilateral oophorectomy H/O total hysterectomy S/P hernia surgery History of cholecystectomy Family History Other Breast cancer Endometrial cancer Family history of GERD Hypertension 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 Smoking Status: Unknown if ever smoked alcohol intake: never substance use type: denies use current occupational status: employed and other Travel in the last 8 weeks: None household members: family housing: house lives independently: No education level: high school service: No pets and animals: No Review of Systems Review of Systems Review of systems (narrative): 14 point review of systems performed, pertinent positives and negatives as per [facility] Meds Home Medications and Allergies Home Medications Medication Instructions Recorded Confirmed Type glimepiride 4 mg tablet 8 mg PO DAILY Diabetes 01/27/18 04/13/23 History levothyroxine 88 mcg tablet 88 mcg PO DAILY hypothyroidism 01/27/18 04/14/23 History metformin 1,000 mg tablet 1,000 mg PO 1200,1700 Diabetes 11/29/21 04/14/23 History semaglutide 14 mg tablet (Rybelsus) 14 mg PO DAILYDM Diabetes 11/29/21 04/14/23 History amlodipine 5 mg tablet 5 mg PO DAILY hypertension 09/18/22 04/13/23 History cyclobenzaprine 5 mg tablet 5 mg PO TIDP PRN MUSCLE SPASMS 04/14/23 04/14/23 History omeprazole 20 mg capsule,delayed 20 mg PO DAILY GERD 04/14/23 07/03/23 History release doxycycline hyclate 100 mg tablet 100 mg PO BID #20 tabs 04/15/23 Rx levofloxacin 750 mg tablet 750 mg PO DAILY #10 tabs 04/15/23 Rx New Prescriptions to Start Prescriptions: Allergies Allergy/AdvReac Type Severity Reaction Status Date / Time chlordiazepoxide Allergy Unknown Verified 09/18/22 16:47 [From LIBRAX (WITH CLIDINIUM)] clidinium Allergy Unknown Verified 09/18/22 16:47 [From LIBRAX (WITH CLIDINIUM)] iodine [IODINE] Allergy Unknown Verified 09/18/22 16:47 Penicillins [PENICILLINS] Allergy Unknown Rash Verified 09/18/22 16:47 Sulfa (Sulfonamide Allergy Unknown Rash Verified 09/18/22 16:47 Antibiotics) [SULFA (SULFONAMIDE ANTIBIOTICS)] morphine Allergy Chest Pain Verified 09/18/22 16:47 Exam Data for Last 24 hours Vital signs and Labs for Last 24 Hours: Temp Pulse Resp BP Pulse Ox O2 Del Method 97.5 F L 108 H 19 115/69 92 L Room Air 07/03/23 08:26 07/03/23 13:00 07/03/23 13:00 07/03/23 13:00 07/03/23 13:00 07/03/23 08:26 Laboratory Results - last 24 hr 07/03/23 08:30: Urine Color Yellow, Urine Appearance Clear, Urine pH 6.0, Ur Specific [place] 1.020, Urine Protein 1+, Urine Glucose (UA) 3+, Urine Ketones 2+, Urine Blood Negative, Urine Nitrate Negative, Urine Bilirubin 1+ A, Urine Urobilinogen 0.2, Ur Leukocyte Esterase Negative, Urine RBC None, Urine WBC Occasional, Ur Squamous Epith Cells 5-10, Urine Bacteria None 07/03/23 08:49: WBC 13.0 H, RBC 5.36, Hgb 15.8, Hct 48.0 H, MCV 89.6, MCH 29.5, MCHC 33.0, RDW 14.5, Plt Count 232, MPV 11.1 H, Neut % (Auto) 84.5 H, Lymph % (Auto) 9.9 L, [place] % (Auto) 3.6, Eos % (Auto) 1.5, Baso % (Auto) 0.5, Neut # (Auto) 11.0 H, Lymph # (Auto) 1.3, [place] # (Auto) 0.5, Eos # (Auto) 0.2, Baso # (Auto) 0.1, Sodium 136, Potassium 4.1, Chloride 99, Carbon Dioxide 17 L, Anion Gap 24.1 H, BUN 8, Creatinine 0.60, Estimated Creat Clear 77, Estimated GFR 99, Est GFR ( Amer) 120, Glucose 376 H, Lactate 5.9 H, Calcium 9.9, Total Bilirubin 1.5 H, AST 53 H, ALT 49, Alkaline Phosphatase 110, Troponin I < 0.01, Total Protein 7.4, Albumin 4.5, Globulin 2.9, Albumin/Globulin Ratio 1.6, Lipase 136 07/03/23 09:45: VBG pH 7.35, VBG pCO2 29.3 L, VBG pO2 87.7 H, VBG HCO3 15.9 L, VBG Total CO2 16.8 L, VBG O2 Saturation 97.2 H, VBG Base Excess -9.7 L, VBG Lactic Acid 5.0 H I & O for Last 24 hours: Intake & Output 06/30/23 07/01/23 07/02/23 07/03/23 23:59 23:59 23:59 23:59 Weight 90.265 kg Constitutional Constitutional: no acute distress, obese, chronically ill appearing and cooperative *Routine HEENT Exam Head: Present normocephalic Eye: Present EOMI ENT: Present mucous membranes moist Comments: NG in right nare *Routine Neck Exam Neck: Present full ROM and tenderness *Routine Respiratory Exam Respiratory: Present CTA bilaterally *Routine Cardiovascular Exam Cardiovascular: Present RRR *Routine Abdominal Exam Abdominal: Present soft and tenderness (Diffuse); Absent normoactive bowel sounds Comments: Hypoactive bowel sound *Routine Rectal Exam Rectal:: deferred *Routine Genitalia Exam Genitalia:: deferred *Routine Extremities Exam Extremities: Present edema (rle-> has titanium from prior surgery ) and full ROM *Routine Skin Exam Skin: Present intact *Routine Neurological Exam Neurological: Present alert, oriented X3 and moving all extremities; Absent altered mental status Assessment and Plan *Assessment and plan (1) Partial obstruction of small intestine: Status: Acute Category: Medical Code(s): K56.600 - Partial intestinal obstruction, unspecified as to cause (2) SIRS (systemic inflammatory response syndrome): Status: Acute Category: Medical Code(s): R65.10 - Systemic inflammatory response syndrome (SIRS) of non-infectious origin without acute organ dysfunction (3) Metabolic acidosis: Status: Acute Category: Medical Code(s): E87.20 - Acidosis, unspecified (4) Diabetes mellitus: Status: Acute Qualifiers: Diabetes mellitus type: type 2 Category: Medical Code(s): E11.9 - Type 2 diabetes mellitus without complications (5) Obesity: Status: Acute Qualifiers: Body mass index: BMI 38.0-38.9 Obesity classification: adult class 2 (BMI 35 - 39.9) Obesity type: due to excess calories Category: Medical Code(s): E66.9 - Obesity, unspecified (6) Hypothyroidism: Status: Chronic Qualifiers: Hypothyroidism type: acquired Qualified Code(s): E03.9 - Hypothyroidism, unspecified Category: Medical Code(s): E03.9 - Hypothyroidism, unspecified (7) Hypertension: Status: Chronic Qualifiers: Hypertension type: primary hypertension Qualified Code(s): I10 - Essential (primary) hypertension Category: Medical Code(s): I10 - Essential (primary) hypertension (8) Vomiting and diarrhea: Status: Acute Category: Medical Code(s): R11.10 - Vomiting, unspecified; R19.7 - Diarrhea, unspecified Plan 67 year old female who presented to the ED from home with intractable nausea and vomiting. Found to have partial SBO with lactic acidosis and elevated glucose along with anion gap. Discussed case with ER, request admission for fluid resuscitation, further treatment of metabolic disturbances, and bowel decompression along with surgery eval. Medicine agreed to admit. Surgery consulted and assisting with care. Necessitating inpatient management. Personally reviewed CT of abdomen showing bowel obstruction with dilated loops, no clear transition point. Problems addressed as follows: SIRS Lactic acidosis Anion gap metabolic acidosis -leukocytosis of 13, tachycardic. Lactic acid initially 5.9. Improving with fluids to 4. Anion gap 24 with bicarb of 17. No BUDDY with BUN of 8 and creatinine 1.6. Differential includes DKA versus secondary to nausea and vomiting versus sepsis. No clear source of infection. Similar presentation in the past deemed secondary to gastroenteritis. Concern for obstruction, see below. -Repeat CBC, CMP, magnesium ordered for the morning -Blood cultures obtained and pending - Continue broad spectrum coverage with cefepime 2g BID and Flagyl 500 mg 3 times a day IV. -Lactated Ringer's at 100 cc/h -Zofran 4 mg every 8 hours as needed -Pantoprazole 40 mg IV nightly Partial small bowel obstruction -Surgery consulted, appreciate their assistance in care. Continue NG to low wall suction for decompression. Serial abdominal exams. Repeat x-ray for the morning. -Will discuss further need for possible surgery. Given extensive abdominal surgeries and comorbidities, may necessitate transfer to higher level of care if surgery deemed appropriate. DM -SSI insulin ordered. -A1C 8.1 -Discontinue Rybelsus. Concern this medication may be causing obstruction or slowing bowel function leading to her SBO. HYPOTHYROIDISM HTN OBESITY -Continue home levothyroxine 88 mcg. TSH pending -Hold amlodipine in the setting of normotensive -Complicates all aspects of care. FULL CODE Heparin SQ twice daily N.p.o. DVT: sub q heparin
--- NOTE | 2023-07-03 13:41 | EXP.SURG.CON ---
History of Present Illness *Admission Date: 07/03/23 *Reason for visit:: Nausea vomiting diarrhea; radiographic evidence of dilated bowel loops *History of present illness: This is a 67-year-old female seen in consultation after evaluation emergency department for nausea, vomiting, and diarrhea. Please see truncated evaluation emergency department for the below. Forwarded from emergency department evaluation: General Chief complaint: Nausea/Vomiting/Diarrhea Stated complaint: vomiting, fever Time Seen by Provider: 07/03/23 08:26 Mode of Arrival: Ambulatory Source of Information: Patient Limitations: No Limitations Description of Symptoms (Recalled from ER Triage Doc. by RN): Patient reports N/V/D since 2am this morning. Also states she had a fever as well. Complaint of some stomach cramping as well. This is a 67-year-old female with history of hypertension, hyperlipidemia, diabetes type 2, hypothyroidism, hysterectomy, cholecystectomy, appendectomy, numerous episodes of sepsis over the past few months, recent cervical fusion May 21, 2023 presenting with acute onset malaise. Patient states that last night, 07/01 she began feeling generally poorly. Abdominal cramping, vomiting, diarrhea. She states that her pain had all of a sudden, has not gotten any better. Associated with nonbloody, nonbilious vomiting, nonbloody diarrhea. Abdominal pain is diffuse, worse when she is vomiting. Last bowel movement was just prior to arrival. felt febrile, Tmax 100.1. No urinary symptoms. No recent unintended weight loss, yellowing of the skin or eyes, recent travel, new medications, or any other relevant history. History was obtained via conversation with patient. On arrival, patient hemodynamically stable, alert, [oriented x4, ][appropriate, ]GCS [15], moving all extremities spontaneously, pupils equal and reactive to light. Full physical exam performed and significant for very pleasant 67-year-old female who is tachycardic, intermittently retching and expelling nonbloody, nonbilious vomitus. Abdomen is soft, nondistended, but diffusely tender. No overlying skin changes. Cardiopulmonary exam within normal limits otherwise. No lower extremity edema. Differential includes PUD, gastritis, enteritis, gastroenteritis, pancreatitis, SBO, colitis, diverticulitis, nephrolithiasis, UTI, hepatitis, aortic pathology, mesenteric ischemia among others. Patient was given sepsis bolus LR, Zofran for symptomatic management[ and correction of underlying abnormalities]. Workup independently interpreted and significant for white count 13,000 with neutrophilia, lactic acid 5.9. Patient's chemistry with anion gap metabolic acidosis with gap of 24, CO2 low at 17 - all of this is concerning for sepsis. Troponin negative, BNP negative, urinalysis with glucose, ketones. See radiology read for full review of final results. PFSH PFS Disclaimer: The information contained in this section may have been updated after the patient was seen, as this information can be updated by other users. 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) History of lithotripsy H/O bilateral oophorectomy H/O total hysterectomy S/P hernia surgery History of cholecystectomy Family History , TITLE SEARCH MANAGER) Family history of GERD Breast cancer Endometrial cancer Hypertension 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 , 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 SEARCH 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) Smoking Status: Unknown if ever smoked alcohol intake: never substance use type: denies use current occupational status: employed and other Travel in the last 8 weeks: None household members: family housing: house lives independently: No education level: high school service: No pets and animals: No Meds Home Medications and Allergies Home Medications Medication Instructions Recorded Confirmed Type glimepiride 4 mg tablet 8 mg PO DAILY Diabetes 01/27/18 04/13/23 History levothyroxine 88 mcg tablet 88 mcg PO DAILY hypothyroidism 01/27/18 04/14/23 History metformin 1,000 mg tablet 1,000 mg PO 1200,1700 Diabetes 11/29/21 04/14/23 History semaglutide 14 mg tablet (Rybelsus) 14 mg PO DAILYDM Diabetes 11/29/21 04/14/23 History amlodipine 5 mg tablet 5 mg PO DAILY hypertension 09/18/22 04/13/23 History cyclobenzaprine 5 mg tablet 5 mg PO TIDP PRN MUSCLE SPASMS 04/14/23 04/14/23 History omeprazole 20 mg capsule,delayed 20 mg PO DAILY GERD 04/14/23 04/14/23 History release doxycycline hyclate 100 mg tablet 100 mg PO BID #20 tabs 04/15/23 Rx levofloxacin 750 mg tablet 750 mg PO DAILY #10 tabs 04/15/23 Rx New Prescriptions to Start Prescriptions: Allergies Allergy/AdvReac Type Severity Reaction Status Date / Time chlordiazepoxide Allergy Unknown Verified 09/18/22 16:47 [From LIBRAX (WITH CLIDINIUM)] clidinium Allergy Unknown Verified 09/18/22 16:47 [From LIBRAX (WITH CLIDINIUM)] iodine [IODINE] Allergy Unknown Verified 09/18/22 16:47 Penicillins [PENICILLINS] Allergy Unknown Rash Verified 09/18/22 16:47 Sulfa (Sulfonamide Allergy Unknown Rash Verified 09/18/22 16:47 Antibiotics) [SULFA (SULFONAMIDE ANTIBIOTICS)] morphine Allergy Chest Pain Verified 09/18/22 16:47 Exam (Inpt) Vital signs and Labs for Last 24 Hours: Temp Pulse Resp BP Pulse Ox O2 Del Method 97.5 F L 108 H 19 115/69 92 L Room Air 07/03/23 08:26 07/03/23 13:00 07/03/23 13:00 07/03/23 13:00 07/03/23 13:00 07/03/23 08:26 Laboratory Results - last 24 hr 07/03/23 08:30: Urine Color Yellow, Urine Appearance Clear, Urine pH 6.0, Ur Specific [place] 1.020, Urine Protein 1+, Urine Glucose (UA) 3+, Urine Ketones 2+, Urine Blood Negative, Urine Nitrate Negative, Urine Bilirubin 1+ A, Urine Urobilinogen 0.2, Ur Leukocyte Esterase Negative, Urine RBC None, Urine WBC Occasional, Ur Squamous Epith Cells 5-10, Urine Bacteria None 07/03/23 08:49: WBC 13.0 H, RBC 5.36, Hgb 15.8, Hct 48.0 H, MCV 89.6, MCH 29.5, MCHC 33.0, RDW 14.5, Plt Count 232, MPV 11.1 H, Neut % (Auto) 84.5 H, Lymph % (Auto) 9.9 L, [place] % (Auto) 3.6, Eos % (Auto) 1.5, Baso % (Auto) 0.5, Neut # (Auto) 11.0 H, Lymph # (Auto) 1.3, [place] # (Auto) 0.5, Eos # (Auto) 0.2, Baso # (Auto) 0.1, Sodium 136, Potassium 4.1, Chloride 99, Carbon Dioxide 17 L, Anion Gap 24.1 H, BUN 8, Creatinine 0.60, Estimated Creat Clear 77, Estimated GFR 99, Est GFR ( Amer) 120, Glucose 376 H, Lactate 5.9 H, Calcium 9.9, Total Bilirubin 1.5 H, AST 53 H, ALT 49, Alkaline Phosphatase 110, Troponin I < 0.01, Total Protein 7.4, Albumin 4.5, Globulin 2.9, Albumin/Globulin Ratio 1.6, Lipase 136 07/03/23 09:45: VBG pH 7.35, VBG pCO2 29.3 L, VBG pO2 87.7 H, VBG HCO3 15.9 L, VBG Total CO2 16.8 L, VBG O2 Saturation 97.2 H, VBG Base Excess -9.7 L, VBG Lactic Acid 5.0 H I & O for Labs for Last 24 Hours: Intake & Output 07/01/23 07/02/23 07/03/23 07/04/23 11:59 11:59 11:59 11:59 Weight 199 lb Constitutional: no acute distress Respiratory: Absent respiratory distress Cardiac: Present Tachycardia GI: Present soft and tenderness (Mild to moderate tenderness to mid/lower abdomen); Absent distention Results Labs 07/03/23 08:49 07/03/23 08:49 Labs: Laboratory Results - last 24 hr 07/03/23 08:30: Urine Color Yellow, Urine Appearance Clear, Urine pH 6.0, Ur Specific [place] 1.020, Urine Protein 1+, Urine Glucose (UA) 3+, Urine Ketones 2+, Urine Blood Negative, Urine Nitrate Negative, Urine Bilirubin 1+ A, Urine Urobilinogen 0.2, Ur Leukocyte Esterase Negative, Urine RBC None, Urine WBC Occasional, Ur Squamous Epith Cells 5-10, Urine Bacteria None 07/03/23 08:49: WBC 13.0 H, RBC 5.36, Hgb 15.8, Hct 48.0 H, MCV 89.6, MCH 29.5, MCHC 33.0, RDW 14.5, Plt Count 232, MPV 11.1 H, Neut % (Auto) 84.5 H, Lymph % (Auto) 9.9 L, [place] % (Auto) 3.6, Eos % (Auto) 1.5, Baso % (Auto) 0.5, Neut # (Auto) 11.0 H, Lymph # (Auto) 1.3, [place] # (Auto) 0.5, Eos # (Auto) 0.2, Baso # (Auto) 0.1, Sodium 136, Potassium 4.1, Chloride 99, Carbon Dioxide 17 L, Anion Gap 24.1 H, BUN 8, Creatinine 0.60, Estimated Creat Clear 77, Estimated GFR 99, Est GFR ( Amer) 120, Glucose 376 H, Lactate 5.9 H, Calcium 9.9, Total Bilirubin 1.5 H, AST 53 H, ALT 49, Alkaline Phosphatase 110, Troponin I < 0.01, Total Protein 7.4, Albumin 4.5, Globulin 2.9, Albumin/Globulin Ratio 1.6, Lipase 136 07/03/23 09:45: VBG pH 7.35, VBG pCO2 29.3 L, VBG pO2 87.7 H, VBG HCO3 15.9 L, VBG Total CO2 16.8 L, VBG O2 Saturation 97.2 H, VBG Base Excess -9.7 L, VBG Lactic Acid 5.[address] scan - abdomen: report reviewed and image reviewed CT scan - pelvis: report reviewed and image reviewed Assessment and Plan *Assessment and plan (1) Abnormal CT scan, small bowel: Problem Comment: Air/fluid-filled loops of small bowel measuring up to 4 cm in diameter. No definitive transition zone distal small bowel relatively decompressed. Given the patient's complaint of nausea, vomiting, and diarrhea (continue to have bowel movements) complete obstruction very unlikely. Overall, history, exam, and radiographic findings are more consistent with gastroenteritis/enteritis of undetermined etiology. -Agree with initial nasogastric decompression -Serial abdominal exams -No need for emergent surgical intervention -Flat/upright films in AM -Secondary to the patient's comorbid conditions she will likely require transfer to a tertiary center if she shows signs of decompensation/increased likelihood of surgical intervention Status: Acute Category: Medical Code(s): R93.3 - Abnormal findings on diagnostic imaging of other parts of digestive tract
--- NOTE | 2023-07-03 14:16 | XR_ITS ---
FINAL REPORT CLINICAL HISTORY: ng tube placement COMPARISON: 04/13/2023 FINDINGS: The heart size is normal. The mediastinum is normal. There is no focal infiltrate or edema. There are no pleural effusions. There is no pneumothorax. Cervical fusion hardware is noted in the lower cervical spine. NG tube is present with the tip lying off the inferior margin of the film. IMPRESSION: NG tube tip off the inferior margin of the film. Reviewed, Interpreted and Dictated by Jasmeet Bach MD Transcribed by Jackie Jones Authenticated and [facility]
--- NOTE | 2023-07-03 14:49 | PC.NURSE ---
Report called to Kareem on Med Surg.
--- NOTE | 2023-07-03 15:01 | PC.NURSE ---
arrived by w/c from ED
[2023-07-03 15:28] LABS: Reflex Lactic (2 hrs) Add Lactic Reflex
[2023-07-03 15:29] LABS: Hemoglobin A1C 8.1 % (4.0-6.0)
[2023-07-03 16:03] LABS: Lactic Acid Follow up (RFLX 2) 3.8 mmol/L (0.7-2.1)
[2023-07-03] MEDS: LACTATED RINGERS 1000ML 1,000 ML 100 ML IV (17:42)
[2023-07-03 17:58] LABS: POC Glucose,Bedside 388 (70-110)
[2023-07-03] MEDS: humaLOG 100 UNITS/ML 3ML VIAL (SSI) SQ ×2 (18:00→20:34)
[2023-07-03 18:22] LABS: Chloride 104 mmol/L (98-107); Sodium 135 mmol/L (136-145)
[2023-07-03 18:23] LABS: Potassium 4.2 mmoL/L (3.5-5.1)
[2023-07-03 18:25] LABS: Blood Urea Nitrogen 11 mg/dl (7-17); Creatinine Clearance Estimated 77 mL/min (50-200); Estimated Glomerular Filt Rate 123 ml/min (>60); GFR (African American) 148 ML/MIN (>60)
[2023-07-03 18:26] LABS: Anion Gap 17.2 mEq/L (5-15); Calcium 9.6 mg/dl (8.4-10.2); Carbon Dioxide 18 mmol/L (22.0-30.0)
[2023-07-03 18:32] LABS: Glucose 402 mg/dl (74-100)
--- NOTE | 2023-07-03 20:23 | PC.NURSE ---
Spoke with pharmacy ([facility]) at this time to verify that cefepime was compatible with lactated ringers
[2023-07-03] MEDS: PANTOPRAZOLE 40MG VIAL 40 MG IV (20:29)
[2023-07-03] MEDS: HEPARIN SODIUM 5,000 UNIT/ML VIAL 5000 UNIT SQ (20:35)
[2023-07-03 20:50] LABS: POC Glucose,Bedside 334 (70-110)
[2023-07-03] MEDS: PHENOL THROAT SPRAY 177 ML BOTTLE MM (22:10)
[2023-07-04] VITALS: PULSE 107
[2023-07-04] MEDS: METRONIDAZ/SOD CHL 500 MG/100 ML PIGGYBACK 100 MG IV ×3 (02:28→17:41)
[2023-07-04 04:00] VITALS: BP 115/74; PULSE 73; PULSE 80; RESP 16; TEMP 36.6; O2SAT 97; BMI 32.0
[2023-07-04] MEDS: PHENOL THROAT SPRAY 177 ML BOTTLE MM ×2 (04:23→08:50)
--- NOTE | 2023-07-04 04:25 | PC.NURSE ---
Patient is A&Ox4. Patient bowel sounds are active in all quadrants and patient reports passing gas . Patient has not had a bowel movement thus far in this RN's shift. Patient lung sounds are clear throughout. Patient does have some slight edema to her left leg that is non-pitting. NG tube remains patent and hooked to low wall suction.
[2023-07-04] MEDS: humaLOG 100 UNITS/ML 3ML VIAL (SSI) SQ ×2 (05:43→11:53)
[2023-07-04] MEDS: LACTATED RINGERS 1000ML 1,000 ML 100 ML IV (05:44)
[2023-07-04 05:52] LABS: POC Glucose,Bedside 244 (70-110)
--- NOTE | 2023-07-04 07:00 | XR_ITS ---
FINAL REPORT CLINICAL HISTORY: Enteritis versus partial bowel obstruction COMPARISON: Chest 07/03/2023, abdomen 12/07/2021 FINDINGS: Chest: The heart and mediastinal within normal limits. The lungs are underinflated but clear. There is no pneumothorax. Cervical fusion hardware is noted in the lower cervical spine. Abdomen: AP and upright views of the abdomen were obtained. NG tube is present with the tip at the pylorus. There is a nonobstructive bowel gas pattern. There are no abnormally dilated loops of bowel. There is no free air. No abnormal calcifications are identified. IMPRESSION: No acute cardiopulmonary process. Nonobstructive bowel gas pattern with no abnormally dilated loops of bowel. NG tube tip at the pylorus. Reviewed, Interpreted and Dictated by Jasmeet Bach MD Transcribed by Jackie Jones Authenticated and [facility]
--- NOTE | 2023-07-04 07:20 | HMH.PHAINT1 ---
Pharmacy Intervention Comments: home medication list verified using list from outpatient pharmacy
--- OUTSIDE RECORDS SUMMARY | 2023-07-04 07:37 | XMS_ITS ---
Author Name Elia Garduno Address [address] [place] [address] Organization Unknown Address [address] [place] [id number] ALLERGIES AND ADVERSE REACTIONS No information ASSESSMENT No information CHIEF COMPLAINT No information MEDICATIONS No information OBJECTIVE DATA No information PHYSICAL EXAMINATION No information TREATMENT PLAN Planned Care Start Date Provider Encounter for Check-up [id number] [place] PROBLEMS No information RESULTS No information REVIEW OF SYSTEMS No information SUBJECTIVE DATA No information VITAL SIGNS No information
[2023-07-04 07:44] LABS: Basophils % 0.3 % (0.1-2.0); Eosinophils % 0.1 % (0.1-12.0); Hematocrit 37.9 % (37.0-47.0); Lymphocytes # 1.5 K/mm3 (0.7-4.5); Lymphocytes % 19.3 % (10-50); Mean Corpuscular HGB Conc 32.6 g/dL (31.8-35.4); Mean Corpuscular Hemoglobin 29.5 pg (27.0-31.2); Mean Corpuscular Volume 90.7 fl (81-99); Mean Platelet Volume 10.1 fl (7.4-10.4); Monocytes # 0.4 K/mm3 (0.1-1.0); Monocytes % 5.6 % (1.7-9.3); Neutrophils # 5.6 K/mm3 (1.8-7.8); Neutrophils % 74.6 % (37.0-80.0); Platelet Count 156 K/mm3 (142-424); Red Blood Count 4.18 M/mm3 (4.20-5.40); Red Cell Distribution Width 14.3 % (11.5-17.5); White Blood Count 7.6 K/mm3 (4.8-10.8)
[2023-07-04 07:46] LABS: Alanine Aminotransferase 25 U/L (12-78); Albumin Level 3.1 g/dl (3.5-5.0); Albumin/Globulin Ratio 1.1 (1.1-1.8); Alkaline Phosphatase 69 U/L (38-126); Anion Gap 12.4 mEq/L (5-15); Aspartate Amino Transferase 26 U/L (14-36); Bilirubin,Total 0.6 mg/dl (0.2-1.3); Blood Urea Nitrogen 11 mg/dl (7-17); Calcium 9.5 mg/dl (8.4-10.2); Carbon Dioxide 24 mmol/L (22.0-30.0); Chloride 106 mmol/L (98-107); Creatinine Clearance Estimated 77 mL/min (50-200); Estimated Glomerular Filt Rate 159 ml/min (>60); GFR (African American) 192 ML/MIN (>60); Globulin 2.7 g/dL (1.3-3.2); Glucose 217 mg/dl (74-100); Magnesium 1.5 mg/dl (1.6-2.3); Potassium 3.4 mmoL/L (3.5-5.1); Sodium 139 mmol/L (136-145); Total Protein,Serum 5.8 g/dl (6.3-8.2)
--- NOTE | 2023-07-04 07:53 | P.PN_ITS ---
Subjective *Date: 07/04/23 *Time: 14:42 Interval history: Patient feeling better this morning. Passing gas overnight. No nausea or vomiting. Stable on room air. Minimal output in NG canister Medical Exam Vital signs and Labs for Last 24 Hours: Vital Signs Temp Pulse Pulse Resp BP BP Pulse Ox 07/04/23 07:23 07/04/23 05:29 07/04/23 04:00 80 07/04/23 04:00 97.9 F 73 16 115/74 97 07/04/23 03:04 07/04/23 01:15 07/04/23 00:00 107 H 07/03/23 23:16 07/03/23 21:20 07/03/23 20:30 95 07/03/23 20:00 104 H 07/03/23 20:00 97.9 F 99 H 17 119/62 91 L 07/03/23 18:24 07/03/23 18:00 95 07/03/23 17:00 07/03/23 16:00 97.5 F L 113 H 20 112/63 94 L 07/03/23 14:58 98.2 F 110 H 18 112/63 07/03/23 14:29 119 H 105/60 L 97 07/03/23 14:00 117 H 22 117/65 96 07/03/23 13:30 111 H 18 122/62 93 L 07/03/23 13:00 108 H 19 115/69 92 L 07/03/23 12:30 107 H 20 111/56 L 95 07/03/23 12:00 20 125/65 07/03/23 11:30 117 H 22 122/64 92 L 07/03/23 10:30 119 H 20 122/65 95 07/03/23 10:00 125 H 20 126/72 93 L 07/03/23 09:50 124 H 20 117/63 93 L 07/03/23 08:26 97.5 F L 138 H 16 158/83 H 94 L O2 Del Method 07/04/23 07:23 Room Air 07/04/23 05:29 Room Air 07/04/23 04:00 07/04/23 04:00 Room Air 07/04/23 03:04 Room Air 07/04/23 01:15 Room Air 07/04/23 00:00 07/03/23 23:16 Room Air 07/03/23 21:20 Room Air 07/03/23 20:30 Room Air 07/03/23 20:00 07/03/23 20:00 Room Air 07/03/23 18:24 Room Air 07/03/23 18:00 Room Air 07/03/23 17:00 Room Air 07/03/23 16:00 Room Air 07/03/23 14:58 Room Air 07/03/23 14:29 07/03/23 14:00 07/03/23 13:30 07/03/23 13:00 07/03/23 12:30 07/03/23 12:00 07/03/23 11:30 07/03/23 10:30 07/03/23 10:00 07/03/23 09:50 07/03/23 08:26 Room Air Intake and Output 07/03/23 07/03/23 07/04/23 15:59 23:59 07:59 Intake Total 0 / 100 1230 / 1230 Output Total 650 / 650 0 / 0 Balance -650 / -550 1230 / 1230 Intake: Intake, Oral Amount 0 / 0 Intake, Total IV Amount 1230 / 1230 Cefepime HCl 2 gm In 0.9 % 100 / 100 Sodium Chloride 100 ml @ 200 mls/hr IV Q12H NICOL Rx#: [id number] Lactated Ringers 1000ML 1,000 1030 / 1030 ml @ 100 mls/hr IV .Q10H NICOL Rx #:[id number] Metronidaz/Sod Chl 500 mg In 100 / 100 100 ml @ 100 mls/hr IV Q8H NICOL Rx#:[id number] Output: Output, Urine Amount 650 / 650 0 / 0 Other: Number of Unmeasured Voids 1 Weight 90.265 kg 90.435 kg 90.44 kg Patient Weight 07/04/23 23:59 Weight 90.44 kg Laboratory Results - last 24 hr 07/03/23 08:30: Urine Color Yellow, Urine Appearance Clear, Urine pH 6.0, Ur Specific [place] 1.020, Urine Protein 1+, Urine Glucose (UA) 3+, Urine Ketones 2+, Urine Blood Negative, Urine Nitrate Negative, Urine Bilirubin 1+ A, Urine Urobilinogen 0.2, Ur Leukocyte Esterase Negative, Urine RBC None, Urine WBC Occasional, Ur Squamous Epith Cells 5-10, Urine Bacteria None 07/03/23 08:47: Hemoglobin A1c 8.1 H 07/03/23 08:49: WBC 13.0 H, RBC 5.36, Hgb 15.8, Hct 48.0 H, MCV 89.6, MCH 29.5, MCHC 33.0, RDW 14.5, Plt Count 232, MPV 11.1 H, Neut % (Auto) 84.5 H, Lymph % (Auto) 9.9 L, [place] % (Auto) 3.6, Eos % (Auto) 1.5, Baso % (Auto) 0.5, Neut # (Auto) 11.0 H, Lymph # (Auto) 1.3, [place] # (Auto) 0.5, Eos # (Auto) 0.2, Baso # (Auto) 0.1, Sodium 136, Potassium 4.1, Chloride 99, Carbon Dioxide 17 L, Anion Gap 24.1 H, BUN 8, Creatinine 0.60, Estimated Creat Clear 77, Estimated GFR 99, Est GFR ( Amer) 120, Glucose 376 H, Lactate 5.9 H, Calcium 9.9, Total Bilirubin 1.5 H, AST 53 H, ALT 49, Alkaline Phosphatase 110, Troponin I < 0.01, Total Protein 7.4, Albumin 4.5, Globulin 2.9, Albumin/Globulin Ratio 1.6, Lipase 136 07/03/23 09:45: VBG pH 7.35, VBG pCO2 29.3 L, VBG pO2 87.7 H, VBG HCO3 15.9 L, VBG Total CO2 16.8 L, VBG O2 Saturation 97.2 H, VBG Base Excess -9.7 L, VBG Lactic Acid 5.0 H 07/03/23 13:20: Lactate 4.0 H 07/03/23 15:39: Lactate 3.8 H 07/03/23 17:35: POC Glucose 388 H* 07/03/23 17:55: Sodium 135 L, Potassium 4.2, Chloride 104, Carbon Dioxide 18 L, Anion Gap 17.2 H, BUN 11 D, Creatinine 0.50 L, Estimated Creat Clear 77, Estimated GFR 123, Est GFR ( Amer) 148 D, Glucose 402 H*, Calcium 9.6 07/03/23 20:12: POC Glucose 334 H* 07/04/23 05:38: POC Glucose 244 H 07/04/23 06:50: Sodium 139, Potassium 3.4 L, Chloride 106, Carbon Dioxide 24, Anion Gap 12.4, BUN 11, Creatinine 0.40 L, Estimated Creat Clear 77, Estimated GFR 159, Est GFR ( Amer) 192 D, Glucose 217 H D, Calcium 9.5, Magnesium 1.5 L, Total Bilirubin 0.6, AST 26 D, ALT 25 D, Alkaline Phosphatase 69, Total Protein 5.8 L, Albumin 3.1 L D, Globulin 2.7, Albumin/Globulin Ratio 1.1 I & O for Labs for Last 24 Hours: Intake & Output 07/01/23 07/02/23 07/03/23 07/04/23 23:59 23:59 23:59 23:59 Intake Total 0 / 100 1230 / 1230 Output Total 650 / 650 0 / 0 Balance -650 / -550 1230 / 1230 Weight 90.435 kg 90.44 kg Constitutional: Present no acute distress and obese Head: Present atraumatic and normocephalic ENT: Present normal exam and normal oropharynx Neck: Present normal inspection Respiratory: Present CTA bilaterally; Absent wheezes or crackles Cardiac: Present Reg Rate and Rhythm GI: Present soft; Absent distention or tenderness Extremities: Present normal inspection and edema (1+ to knees) Skin: Present intact; Absent cyanosis or erythema Neuro: Present Cranial Nerve 2-12 Intact, alert, awake and oriented x 3; Absent Numbness Assessment and Plan *Assessment and plan (1) Partial obstruction of small intestine: Status: Acute Category: Medical Code(s): K56.600 - Partial intestinal obstruction, unspecified as to cause (2) SIRS (systemic inflammatory response syndrome): Status: Acute Category: Medical Code(s): R65.10 - Systemic inflammatory response syndrome (SIRS) of non-infectious origin without acute organ dysfunction (3) Metabolic acidosis: Status: Acute Category: Medical Code(s): E87.20 - Acidosis, unspecified (4) Diabetes mellitus: Status: Acute Qualifiers: Diabetes mellitus type: type 2 Category: Medical Code(s): E11.9 - Type 2 diabetes mellitus without complications (5) Obesity: Status: Acute Qualifiers: Body mass index: BMI 38.0-38.9 Obesity classification: adult class 2 (BMI 35 - 39.9) Obesity type: due to excess calories Category: Medical Code(s): E66.9 - Obesity, unspecified (6) Hypothyroidism: Status: Chronic Qualifiers: Hypothyroidism type: acquired Qualified Code(s): E03.9 - Hypoth yroidism, unspecified Category: Medical Code(s): E03.9 - Hypothyroidism, unspecified (7) Hypertension: Status: Chronic Qualifiers: Hypertension type: primary hypertension Qualified Code(s): I10 - Essential (primary) hypertension Category: Medical Code(s): I10 - Essential (primary) hypertension (8) Vomiting and diarrhea: Status: Acute Category: Medical Code(s): R11.10 - Vomiting, unspecified; R19.7 - Diarrhea, unspecified Plan 67 year old female who presented to the ED from home with intractable nausea and vomiting. Found to have partial SBO with lactic acidosis and elevated glucose along with anion gap. Discussed case with ER, request admission for fluid resuscitation, further treatment of metabolic disturbances, and bowel decompression along with surgery eval. Medicine agreed to admit. Surgery consulted and assisting with care. Necessitating inpatient management. Personally reviewed CT of abdomen showing bowel obstruction with dilated loops, no clear transition point. Showing some improvement. Surgery recommended tube to gravity today. Will monitor for possible removal later today versus tomorrow. Continues to require inpatient management. Problems addressed as follows: SIRS Lactic acidosis Anion gap metabolic acidosis -Leukocytosis improved to 7.6. Clinically improving. Anion gap closed. -Repeat CBC, CMP, magnesium ordered for the morning. - Blood cultures obtained and pending - Continue broad spectrum coverage with cefepime 2g BID and Flagyl 500 mg 3 times a day IV for at least 48 hours. Consider de-escalating tomorrow if no positive cultures -Lactated Ringer's at 100 cc/h -Zofran 4 mg every 8 hours as needed -Pantoprazole 40 mg IV nightly Partial small bowel obstruction -Surgery consulted, appreciate their assistance in care. Continue NG, transition to gravity today. Since she is passing flatus, will consider removal this afternoon and advancement to clear liquids in the next 24 hours. - Will discuss further need for possible surgery. Given extensive abdominal surgeries and comorbidities, may necessitate transfer to higher level of care if surgery deemed appropriate. DM -SSI insulin ordered. -A1C 8.1 -Discontinue Rybelsus. Concern this medication may be causing obstruction or slowing bowel function leading to her SBO. -Consider initiating long-acting insulin nightly once tolerating p.o. intake HYPOTHYROIDISM HTN OBESITY -Continue home levothyroxine 88 mcg. TSH pending -Hold amlodipine in the setting of normotensive -Complicates all aspects of care. FULL CODE Heparin SQ twice daily N.p.o. DVT: sub q heparin
[2023-07-04 08:00] VITALS: BP 110/63; PULSE 70; PULSE 80; RESP 22; TEMP 36.7; O2SAT 95
[2023-07-04 08:16] LABS: Thyroid Stimulating Hormone 0.47 uIU/mL (0.465-4.68)
[2023-07-04 08:38] LABS: Hemoglobin 12.3 g/dL (12.2-16.2)
--- NOTE | 2023-07-04 08:46 | P.PN_ITS ---
Subjective Patient reports: feels better and flatus Exam Data for Last 24 hours Vital signs and Labs for Last 24 Hours: Temp Pulse Resp BP Pulse Ox O2 Del Method 97.9 F 73 16 115/74 97 Room Air 07/04/23 04:00 07/04/23 04:00 07/04/23 04:00 07/04/23 04:00 07/04/23 04:00 07/04/23 07:23 Laboratory Results - last 24 hr 07/03/23 08:30: Urine Bilirubin 1+ A, Urine RBC None, Urine WBC Occasional, Ur Squamous Epith Cells 5-10, Urine Bacteria None 07/03/23 08:47: Hemoglobin A1c 8.1 H 07/03/23 08:49: WBC 13.0 H, RBC 5.36, Hgb 15.8, Hct 48.0 H, MCV 89.6, MCH 29.5, MCHC 33.0, RDW 14.5, Plt Count 232, MPV 11.1 H, Neut % (Auto) 84.5 H, Lymph % (Auto) 9.9 L, [place] % (Auto) 3.6, Eos % (Auto) 1.5, Baso % (Auto) 0.5, Neut # (Auto) 11.0 H, Lymph # (Auto) 1.3, [place] # (Auto) 0.5, Eos # (Auto) 0.2, Baso # (Auto) 0.1, Sodium 136, Potassium 4.1, Chloride 99, Carbon Dioxide 17 L, Anion Gap 24.1 H, BUN 8, Creatinine 0.60, Estimated Creat Clear 77, Estimated GFR 99, Est GFR ( Amer) 120, Glucose 376 H, Lactate 5.9 H, Calcium 9.9, Total Bilirubin 1.5 H, AST 53 H, ALT 49, Alkaline Phosphatase 110, Troponin I < 0.01, Total Protein 7.4, Albumin 4.5, Globulin 2.9, Albumin/Globulin Ratio 1.6, Lipase 136 07/03/23 09:45: VBG pH 7.35, VBG pCO2 29.3 L, VBG pO2 87.7 H, VBG HCO3 15.9 L, VBG Total CO2 16.8 L, VBG O2 Saturation 97.2 H, VBG Base Excess -9.7 L, VBG Lactic Acid 5.0 H 07/03/23 13:20: Lactate 4.0 H 07/03/23 15:39: Lactate 3.8 H 07/03/23 17:35: POC Glucose 388 H* 07/03/23 17:55: Sodium 135 L, Potassium 4.2, Chloride 104, Carbon Dioxide 18 L, Anion Gap 17.2 H, BUN 11 D, Creatinine 0.50 L, Estimated Creat Clear 77, Estimated GFR 123, Est GFR ( Amer) 148 D, Glucose 402 H*, Calcium 9.6 07/03/23 20:12: POC Glucose 334 H* 07/04/23 05:38: POC Glucose 244 H 07/04/23 06:50: WBC 7.6 D, RBC 4.18 L, Hgb 12.3 D, Hct 37.9, MCV 90.7, MCH 29.5, MCHC 32.6, RDW 14.3, Plt Count 156 D, MPV 10.1, Neut % (Auto) 74.6, Lymph % (Auto) 19.3, [place] % (Auto) 5.6, Eos % (Auto) 0.1, Baso % (Auto) 0.3, Neut # (Auto) 5.6, Lymph # (Auto) 1.5, [place] # (Auto) 0.4, Eos # (Auto) 0.0, Baso # (Auto) 0.0, Sodium 139, Potassium 3.4 L, Chloride 106, Carbon Dioxide 24, Anion Gap 12.4, BUN 11, Creatinine 0.40 L, Estimated Creat Clear 77, Estimated GFR 159, Est GFR ( Amer) 192 D, Glucose 217 H D, Calcium 9.5, Magnesium 1.5 L, Total Bilirubin 0.6, AST 26 D, ALT 25 D, Alkaline Phosphatase 69, Total Protein 5.8 L, Albumin 3.1 L D, Globulin 2.7, Albumin/Globulin Ratio 1.1, TSH 0.47 I & O for Last 24 hours: Intake & Output 07/01/23 07/02/23 07/03/23 07/04/23 11:59 11:59 11:59 11:59 Intake Total 1230 / 1230 Output Total 650 / 650 Balance 580 / 580 Weight 199 lb 199 lb 6.177 oz Constitutional Constitutional: no acute distress *Routine Respiratory Exam Respiratory: Absent respiratory distress *Routine Cardiovascular Exam Cardiovascular: Absent tachycardia *Routine Abdominal Exam Abdominal: Present soft Progress Note: A&P Assessment and plan (1) Partial obstruction of small intestine: Status: Acute (2) Vomiting and diarrhea: Status: Acute Assessment and Plan Assessment and Plan for All Diagnoses:: She continues to improve. She continues to pass flatus. Her white blood cell count has normalized and her lactate has improved. The patient's radiographic anomaly (dilated small bowel) most likely represents gastroenteritis/enteritis/enterocolitis as opposed to mechanical obstruction. Drain bag trials Continue serial abdominal exams Continue overall management as per primary service
[2023-07-04] MEDS: LEVOTHYROXINE 88MCG (0.088MG) TAB 88 MCG PO (08:49)
[2023-07-04] MEDS: HEPARIN SODIUM 5,000 UNIT/ML VIAL 5000 UNIT SQ ×2 (08:49→21:26)
[2023-07-04] MEDS: CEFEPIME HCL 2 GM in 0.9 % SODIUM CHLORIDE 100 ML IV ×2 (08:50→21:25)
[2023-07-04] MEDS: MAGNESIUM SULFATE IN WATER 2 GM/50 ML PIGGYBACK IV (08:56)
[2023-07-04 11:43] LABS: POC Glucose,Bedside 171 (70-110)
[2023-07-04 11:51] VITALS: PULSE 70
[2023-07-04 16:00] VITALS: BP 124/68; PULSE 80; RESP 18; TEMP 36.5; O2SAT 94
[2023-07-04 16:14] LABS: POC Glucose,Bedside 155 (70-110)
--- NOTE | 2023-07-04 16:47 | PC.NURSE ---
A&OX4. PT HAS TOLERATED RA WELL THROUGHOUT SHIFT. RESPIRATIONS REGULAR AND UNLABORED. LUNG SOUNDS CLEAR THROUGHOUT. NO COUGH NOTED. +2 PULSES NOTED THROUGHOUT. NO EDEMA NOTED. HYPOACTIVE BOWEL SOUNDS HEARD IN ALL 4 QUADRANTS. SOFT AND NONTENDER. PT REPORTS PASSING FLATUS BUT NO BM YET. PT VOIDS PER BATHROOM WITH STANDBY ASSISTANCE. STEADY GAIT NOTED. HAND DATA ANALYST REPORT WRITER EQUAL. CLEAR YELLOW URINE NOTED. NO PAIN REPORTED BASIL FAR. DENIES N/V/D. NG TUBE IN PLACE TO R NARE. CONNECTED TO DRAINAGE BAG PER DR LAMB'S REQUEST. RESIDUAL CHECKED Q4 HOURS WITH NO RESIDUAL NOTED THUS FAR. PLAN TO CHECK RESIDUAL SHORTLY AND PULL NG TUBE IF ABLE. VSS. BED IN LOWEST POSITION. CALL LIGHT WITHIN REACH. PT RECEIVED A SHOWER TODAY. FAMILY DID VISIT FOR A SHORT PERIOD TODAY. NO EDEMA NOTED. NO QUESTIONS OR CONCERNS VOICED THUS FAR. NS INFUSING AT 100ML/HR. PT RECEIVED MAG, CEFEPIME, AND FLAGYL TODAY AND TOLERATED WELL. PT WAS ON TELE EARLIER IN THE SHIFT WITH NSR NOTED BUT DC PER DR PINEDA THIS AFTERNOON.
--- NOTE | 2023-07-04 18:00 | PC.NURSE ---
REMOVED PT'S NG TUBE PER DR LAMB'S NOTE. RESIDUAL HAS REMOVED 0 ALONG WITH NO REPORTS OF N/V/D. PT TOLERATED WELL. DR PINEDA AWARE. PT REQUESTING SOMETHING TO DRINK. PER DR PINEDA PT CAN HAVE SIPS AND CHIPS. EDUCATED PT AND VERBALIZED UNDERSTANDING. ICE CHIPS PROVIDED.
[2023-07-04 20:00] VITALS: BP 118/71; PULSE 79; RESP 16; TEMP 36.7; O2SAT 96
[2023-07-04] MEDS: PANTOPRAZOLE 40MG VIAL 40 MG IV (21:26)
[2023-07-05] MEDS: METRONIDAZ/SOD CHL 500 MG/100 ML PIGGYBACK 100 MG IV (03:04)
--- NOTE | 2023-07-05 03:09 | PC.NURSE ---
2200: pt c/o headache rating pain 05/22 2204: contacted Dr. Benavides, received orders for tylenol 1000 mg Q6.
[2023-07-05 04:00] VITALS: BP 115/57; PULSE 78; RESP 17; TEMP 37.1; O2SAT 96; BMI 32.6
[2023-07-05 06:01] LABS: POC Glucose,Bedside 124 (70-110)
[2023-07-05] MEDS: LEVOTHYROXINE 88MCG (0.088MG) TAB 88 MCG PO (06:33)
--- NOTE | 2023-07-05 07:06 | EXP.SURG.PN ---
Subjective Patient reports: no new complaints, feels better and flatus Narrative: She states that her nasogastric tube was removed at approximately 6:00 yesterday evening. Exam Data for Last 24 hours Vital signs and Labs for Last 24 Hours: Temp Pulse Resp BP Pulse Ox O2 Del Method 98.7 F 78 17 115/57 L 96 Room Air 07/05/23 04:00 07/05/23 04:00 07/05/23 04:00 07/05/23 04:00 07/05/23 04:00 07/05/23 06:45 Laboratory Results - last 24 hr 07/04/23 06:50: WBC 7.6 D, RBC 4.18 L, Hgb 12.3 D, Hct 37.9, MCV 90.7, MCH 29.5, MCHC 32.6, RDW 14.3, Plt Count 156 D, MPV 10.1, Neut % (Auto) 74.6, Lymph % (Auto) 19.3, [place] % (Auto) 5.6, Eos % (Auto) 0.1, Baso % (Auto) 0.3, Neut # (Auto) 5.6, Lymph # (Auto) 1.5, [place] # (Auto) 0.4, Eos # (Auto) 0.0, Baso # (Auto) 0.0, Sodium 139, Potassium 3.4 L, Chloride 106, Carbon Dioxide 24, Anion Gap 12.4, BUN 11, Creatinine 0.40 L, Estimated Creat Clear 77, Estimated GFR 159, Est GFR ( Amer) 192 D, Glucose 217 H D, Calcium 9.5, Magnesium 1.5 L, Total Bilirubin 0.6, AST 26 D, ALT 25 D, Alkaline Phosphatase 69, Total Protein 5.8 L, Albumin 3.1 L D, Globulin 2.7, Albumin/Globulin Ratio 1.1, TSH 0.47 07/04/23 11:36: POC Glucose 171 H 07/04/23 16:07: POC Glucose 155 H 07/05/23 05:52: POC Glucose 124 H I & O for Last 24 hours: Intake & Output 07/02/23 07/03/23 07/04/23 07/05/23 11:59 11:59 11:59 11:59 Intake Total 1230 / 1230 1930 / 1930 Output Total 650 / 650 215 / 215 Balance 580 / 580 1715 / 1715 Weight 199 lb 199 lb 6.177 oz 203 lb 1.6 oz Constitutional Constitutional: no acute distress *Routine Respiratory Exam Respiratory: Absent respiratory distress *Routine Cardiovascular Exam Cardiovascular: Absent tachycardia *Routine Abdominal Exam Abdominal: Present soft Progress Note: A&P Assessment and plan (1) Partial obstruction of small intestine: Status: Acute (2) Vomiting and diarrhea: Status: Acute Assessment and Plan Assessment and Plan for All Diagnoses:: She continues to improve. Nasogastric tube now out. No nausea or vomiting. She continues to pass flatus. Bowel gas pattern improved on yesterday's a.m. films. Clear liquid diet without carbonation ordered Continue serial abdominal exams Continue overall management as per primary service
[2023-07-05] MEDS: CEFEPIME HCL 2 GM in 0.9 % SODIUM CHLORIDE 100 ML IV (07:47)
[2023-07-05] MEDS: HEPARIN SODIUM 5,000 UNIT/ML VIAL 5000 UNIT SQ ×2 (07:47→20:23)
[2023-07-05 07:57] LABS: Basophils % 0.2 % (0.1-2.0); Eosinophils # 0.1 K/mm3 (0.0-0.4); Eosinophils % 1.9 % (0.1-12.0); Hematocrit 42.2 % (37.0-47.0); Hemoglobin 13.9 g/dL (12.2-16.2); Lymphocytes # 1.7 K/mm3 (0.7-4.5); Lymphocytes % 27.1 % (10-50); Mean Corpuscular HGB Conc 32.8 g/dL (31.8-35.4); Mean Corpuscular Hemoglobin 29.6 pg (27.0-31.2); Mean Corpuscular Volume 90.3 fl (81-99); Mean Platelet Volume 9.7 fl (7.4-10.4); Monocytes # 0.4 K/mm3 (0.1-1.0); Monocytes % 6.1 % (1.7-9.3); Neutrophils % 64.7 % (37.0-80.0); Platelet Count 125 K/mm3 (142-424); Red Blood Count 4.68 M/mm3 (4.20-5.40); Red Cell Distribution Width 14.4 % (11.5-17.5); White Blood Count 6.2 K/mm3 (4.8-10.8)
[2023-07-05 08:00] VITALS: BP 124/66; PULSE 75; RESP 16; TEMP 36.6
[2023-07-05] MEDS: metroNIDAZOLE 500 MG TABLET PO (08:59)
[2023-07-05 09:28] LABS: Alanine Aminotransferase 32 U/L (12-78); Albumin Level 3.6 g/dl (3.5-5.0); Albumin/Globulin Ratio 1.2 (1.1-1.8); Alkaline Phosphatase 73 U/L (38-126); Anion Gap 12.4 mEq/L (5-15); Aspartate Amino Transferase 57 U/L (14-36); Bilirubin,Total 0.6 mg/dl (0.2-1.3); Blood Urea Nitrogen 8 mg/dl (7-17); Calcium 9.6 mg/dl (8.4-10.2); Carbon Dioxide 25 mmol/L (22.0-30.0); Chloride 106 mmol/L (98-107); Creatinine Clearance Estimated 78 mL/min (50-200); Estimated Glomerular Filt Rate 123 ml/min (>60); GFR (African American) 148 ML/MIN (>60); Glucose 156 mg/dl (74-100); Magnesium 1.8 mg/dl (1.6-2.3); Potassium 3.4 mmoL/L (3.5-5.1); Sodium 140 mmol/L (136-145); Total Protein,Serum 6.6 g/dl (6.3-8.2)
[2023-07-05 10:12] LABS: POC Glucose,Bedside 228 (70-110)
[2023-07-05] MEDS: humaLOG 100 UNITS/ML 3ML VIAL (SSI) SQ ×3 (10:14→21:17)
[2023-07-05 12:20] VITALS: BMI 32.5
[2023-07-05 16:00] VITALS: BP 120/74; PULSE 78; RESP 16; TEMP 36.7; O2SAT 99
[2023-07-05 16:29] LABS: POC Glucose,Bedside 219 (70-110)
--- NOTE | 2023-07-05 16:47 | PC.NURSE ---
A&Ox4. lungs sounds clear. slight edema to left ankle, 2+ pulses throughout. Bowel sounds active in all 4 quadrants, abdomen is soft and non-tender. Pt reports having solid bowel movement this shift. Pt up to bedside chair and ambulating independently throughout this shift. Pt is tolerating clear liquid diet well.
--- NOTE | 2023-07-05 17:16 | P.PN_ITS ---
Subjective *Date: 07/05/23 *Time: 17:16 Interval history: NG removed this morning. Passing gas. No bowel movements. No further nausea or vomiting. Stable on room air. Tolerated clear liquids this morning. Afebrile Medical Exam Vital signs and Labs for Last 24 Hours: Vital Signs Temp Pulse Resp BP Pulse Ox O2 Del Method 07/05/23 16:00 98.1 F 78 16 120/74 99 07/05/23 15:00 Room Air 07/05/23 13:00 Room Air 07/05/23 11:00 Room Air 07/05/23 09:15 Room Air 07/05/23 08:00 Room Air 07/05/23 08:00 98 F 75 16 124/66 07/05/23 06:45 Room Air 07/05/23 05:00 Room Air 07/05/23 04:00 98.7 F 78 17 115/57 L 96 Room Air 07/05/23 02:49 Room Air 07/05/23 01:00 Room Air 07/04/23 21:00 Room Air 07/04/23 20:00 Room Air 07/04/23 20:00 98.0 F 79 16 118/71 96 Room Air 07/04/23 18:28 Room Air Intake and Output 07/05/23 07/05/23 07/05/23 07:59 15:59 23:59 Intake Total 130 / 1150 1020 / 1150 Output Total 0 / 0 0 / 0 Balance 130 / 1150 1020 / 1150 Intake: Intake, Oral Amount 30 / 750 720 / 750 Intake, Total IV Amount 100 / 400 300 / 400 Cefepime HCl 2 gm In 0.9 % 100 / 200 100 / 200 Sodium Chloride 100 ml @ 200 mls/hr IV Q12H NICOL Rx#:[id number] Lactated Ringers 1000ML 1,000 200 / 200 ml @ 100 mls/hr IV .Q10H NICOL Rx #:[id number] Output: Output, Urine Amount 0 / 0 0 / 0 Other: Number of Unmeasured Voids 1 250 Weight 92.125 kg 92 kg Patient Weight 07/05/23 23:59 Weight 92 kg Laboratory Results - last 24 hr 07/05/23 05:52: POC Glucose 124 H 07/05/23 07:45: WBC 6.2, RBC 4.68, Hgb 13.9, Hct 42.2, MCV 90.3, MCH 29.6, MCHC 32.8, RDW 14.4, Plt Count 125 L, MPV 9.7, Neut % (Auto) 64.7, Lymph % (Auto) 27 .1, [place] % (Auto) 6.1, Eos % (Auto) 1.9, Baso % (Auto) 0.2, Neut # (Auto) 4.0, Lymph # (Auto) 1.7, [place] # (Auto) 0.4, Eos # (Auto) 0.1, Baso # (Auto) 0.0, Sodium 140, Potassium 3.4 L, Chloride 106, Carbon Dioxide 25, Anion Gap 12.4, BUN 8 D, Creatinine 0.50 L D, Estimated Creat Clear 78, Estimated GFR 123, Est GFR ( Amer) 148 D, Glucose 156 H, Calcium 9.6, Magnesium 1.8 D, Total Bilirubin 0.6, AST 57 H D, ALT 32 D, Alkaline Phosphatase 73, Total Protein 6.6, Albumin 3.6 D, Globulin 3.0, Albumin/Globulin Ratio 1.2 07/05/23 10:05: POC Glucose 228 H 07/05/23 16:23: POC Glucose 219 H I & O for Labs for Last 24 Hours: Intake & Output 07/02/23 07/03/23 07/04/23 07/05/23 23:59 23:59 23:59 23:59 Intake Total 0 / 100 3030 / 3160 1150 / 1150 Output Total 650 / 650 215 / 215 0 / 0 Balance -650 / -550 2815 / 2945 1150 / 1150 Weight 90.435 kg 90.44 kg 92 kg Constitutional: Present no acute distress and obese Head: Present atraumatic and normocephalic ENT: Present normal exam and normal oropharynx Neck: Present normal inspection Respiratory: Present CTA bilaterally; Absent wheezes or crackles Cardiac: Present Reg Rate and Rhythm GI: Present soft and normal bowel sounds; Absent distention or tenderness Extremities: Present normal inspection and edema (1+ to knees) Skin: Present intact; Absent cyanosis or erythema Neuro: Present Cranial Nerve 2-12 Intact, alert, awake and oriented x 3; Absent Numbness Assessment and Plan *Assessment and plan (1) Partial obstruction of small intestine: Status: Acute Category: Medical Code(s): K56.600 - Partial intestinal obstruction, unspecified as to cause (2) SIRS (systemic inflammatory response syndrome): Status: Acute Category: Medical Code(s): R65.10 - Systemic inflammatory response syndrome (SIRS) of non-infectious origin without acute organ dysfunction (3) Metabolic acidosis: Status: Acute Category: Medical Code(s): E87.20 - Acidosis, unspecified (4) Diabetes mellitus: Status: Acute Qualifiers: Diabetes mellitus type: type 2 Category: Medical Code(s): E11.9 - Type 2 diabetes mellitus without complications (5) Obesity: Status: Acute Qualifiers: Body mass index: BMI 38.0-38.9 Obesity classification: adult class 2 (BMI 35 - 39.9) Obesity type: due to excess calories Category: Medical Code(s): E66.9 - Obesity, unspecified (6) Hypothyroidism: Status: Chronic Qualifiers: Hypothyroidism type: acquired Qualified Code(s): E03.9 - Hypothyroidism, unspecified Category: Medical Code(s): E03.9 - Hypothyroidism, unspecified (7) Hypertension: Status: Chronic Qualifiers: Hypertension type: primary hypertension Qualified Code(s): I10 - Essential (primary) hypertension Category: Medical Code(s): I10 - Essential (primary) hypertension (8) Vomiting and diarrhea: Status: Acute Category: Medical Code(s): R11.10 - Vomiting, unspecified; R19.7 - Diarrhea, unspecified Plan 67 year old female who presented to the ED from home with intractable nausea and vomiting. Found to have partial SBO with lactic acidosis and elevated glucose along with anion gap. Discussed case with ER, request admission for fluid resuscitation, further treatment of metabolic disturbances, and bowel decompression along with surgery eval. Medicine agreed to admit. Surgery consulted and assisting with care. Necessitating inpatient management. Personally reviewed CT of abdomen showing bowel obstruction with dilated loops, no clear transition point. Showing some improvement. NG removed today. Surgery cautiously advancing diet. Continues to require inpatient management. Problems addressed as follows: SIRS Lactic acidosis Anion gap metabolic acidosis -Leukocytosis normal at 6.2. Clinically improved. Cultures remain negative. Will discontinue antibiotics -Repeat CBC, CMP, magnesium ordered for the morning. - Blood cultures obtained and egative to date -Lactated Ringer's at 100 cc/h -Zofran 4 mg every 8 hours as needed -Pantoprazole 40 mg IV nightly Partial small bowel obstruction -Surgery consulted, appreciate their assistance in care. Discontinue NG today. Advance diet cautiously. Clear liquids today. - Will discuss further need for possible surgery. Given extensive abdominal surgeries and comorbidities, may necessitate transfer to higher level of care if surgery deemed appropriate. DM -SSI insulin ordered. -A1C 8.1 -Discontinue Rybelsus. Concern this medication may be causing obstruction or slowing bowel function leading to her SBO. -Consider initiating long-acting insulin nightly once tolerating p.o. intake HYPOTHYROIDISM HTN OBESITY -Continue home levothyroxine 88 mcg. TSH pending -Hold amlodipine in the setting of normotensive -Complicates all aspects of care. FULL CODE Heparin SQ twice daily clear liquid diet DVT: sub q heparin
[2023-07-05 20:00] VITALS: BP 126/76; PULSE 86; RESP 16; TEMP 37; O2SAT 98
[2023-07-05] MEDS: PANTOPRAZOLE 40MG TABLET 40 MG PO (20:23)
[2023-07-05 20:42] LABS: POC Glucose,Bedside 170 (70-110)
--- NOTE | 2023-07-05 21:03 | PC.NURSE ---
Pt is currently on a clear liquid diet and requests an advance of diet, states that shes hungry. Contacted Dr. Benavides and received orders to advance diet to full liquid in am at breakfast and she can have a full liquid snack this evening.
[2023-07-06 04:00] VITALS: BP 123/76; PULSE 72; RESP 18; TEMP 36.9; O2SAT 96; BMI 31.7
[2023-07-06 05:19] LABS: POC Glucose,Bedside 135 (70-110)
[2023-07-06] MEDS: LEVOTHYROXINE 88MCG (0.088MG) TAB 88 MCG PO (06:00)
[2023-07-06 06:05] LABS: Basophils % 0.5 % (0.1-2.0); Eosinophils # 0.1 K/mm3 (0.0-0.4); Hematocrit 38.3 % (37.0-47.0); Hemoglobin 12.6 g/dL (12.2-16.2); Lymphocytes # 1.6 K/mm3 (0.7-4.5); Lymphocytes % 33.3 % (10-50); Mean Corpuscular HGB Conc 32.9 g/dL (31.8-35.4); Mean Corpuscular Hemoglobin 29.6 pg (27.0-31.2); Mean Corpuscular Volume 90.2 fl (81-99); Mean Platelet Volume 10.6 fl (7.4-10.4); Monocytes # 0.3 K/mm3 (0.1-1.0); Neutrophils # 2.7 K/mm3 (1.8-7.8); Neutrophils % 57.3 % (37.0-80.0); Platelet Count 112 K/mm3 (142-424); Red Blood Count 4.24 M/mm3 (4.20-5.40); Red Cell Distribution Width 14.4 % (11.5-17.5); White Blood Count 4.7 K/mm3 (4.8-10.8)
[2023-07-06 06:17] LABS: Alanine Aminotransferase 25 U/L (12-78); Albumin/Globulin Ratio 1.2 (1.1-1.8); Alkaline Phosphatase 71 U/L (38-126); Anion Gap 9.1 mEq/L (5-15); Aspartate Amino Transferase 40 U/L (14-36); Bilirubin,Total 0.5 mg/dl (0.2-1.3); Blood Urea Nitrogen 3 mg/dl (7-17); Calcium 9.3 mg/dl (8.4-10.2); Carbon Dioxide 26 mmol/L (22.0-30.0); Chloride 107 mmol/L (98-107); Creatinine Clearance Estimated 76 mL/min (50-200); Estimated Glomerular Filt Rate 159 ml/min (>60); GFR (African American) 192 ML/MIN (>60); Globulin 2.6 g/dL (1.3-3.2); Glucose 155 mg/dl (74-100); Magnesium 1.8 mg/dl (1.6-2.3); Potassium 3.1 mmoL/L (3.5-5.1); Sodium 139 mmol/L (136-145); Total Protein,Serum 5.6 g/dl (6.3-8.2)
[2023-07-06 07:51] VITALS: BP 130/93; PULSE 79; RESP 16; TEMP 36.8; O2SAT 98
[2023-07-06] MEDS: POTASSIUM CHLORIDE 20MEQ TAB 20 MEQ PO ×2 (07:55→12:04)
[2023-07-06] MEDS: HEPARIN SODIUM 5,000 UNIT/ML VIAL 5000 UNIT SQ (07:55)
[2023-07-06 10:27] LABS: POC Glucose,Bedside 235 (70-110)
[2023-07-06] MEDS: humaLOG 100 UNITS/ML 3ML VIAL (SSI) SQ (10:55)
--- NOTE | 2023-07-06 11:47 | P.DS_ITS ---
General Admission date:: 07/03/23 Discharge date: 07/06/23 HPI HPI HPI: Ms. Ayala is a 67-year-old female with history of hyperlipidemia, hypertension, diabetes, hypothyroid. History of significant abdominal surgeries including hysterectomy, cholecystectomy, appendectomy, ventral hernia repair. She presented to the ER because of onset of intractable nausea and vomiting accompanied with some diarrhea starting last night. Says she felt generally poor after eating out. Developed abdominal cramping, vomiting and a few loose stools. [place] similar to an episode several months ago where she was admitted for sepsis. States that pain began all of a sudden, and has not gotten better. Emesis is nonbloody. Abdominal pain is diffuse. Worse with vomiting. Struggles with regular bowel movements but did have bowel movement prior to presenting to the ER. Of note was resumed on her Rybelsus approximately 4 to 6 weeks ago. Initial exam remarkable for abdominal discomfort and emesis. Workup initiated with findings of leukocytosis of 13, anion gap metabolic acidosis, elevated lactic acid, hyperglycemia. Abdominal imaging obtained showing concern for partial SBO. Surgery consulted. NG placed for decompression. Patient administered IV fluids and showing some improvement clinically. Given lab abnormalities and concern for obstruction, medicine was consulted for admission and further management. After arriving to the floor, patient is feeling much better and requesting a cup of ice chips. Having mild dark green bilious output from NG. On room air. Belly soft and less painful on exam. She is concerned about presenting with sepsis. Feels this is similar to her previous admissions. Last admission in April with similar symptoms. Denies any fever or chills. No shortness of breath. Complaining of pain in the back of her throat from NG. Stable on room air. Has not passed any gas since admission. Hospital Course Hospital Course Hospital Course: 67 year old female who presented to the ED from home with intractable nausea and vomiting. Found to have partial SBO with lactic acidosis and elevated glucose along with anion gap. Discussed case with ER, request admission for fluid resuscitation, further treatment of metabolic disturbances, and bowel decompression along with surgery eval. Medicine agreed to admit. Surgery consulted and assisting with care. Necessitating inpatient management. Personally reviewed CT of abdomen showing bowel obstruction with dilated loops, no clear transition point. Showing some improvement. NG removed today. Surgery cautiously advancing diet. Continues to require inpatient management. Problems addressed as follows: SIRS Lactic acidosis Anion gap metabolic acidosis -Presented with SIRS criteria. Has had similar episodes in the past with vomiting that have resolved rapidly. No infectious source identified during this admission. Cultures remain negative. Treated with empiric antibiotics for 48 hours, discontinued thereafter due to stabilization with patient. Suspect her lactic acidosis and SIRS were from her nausea and vomiting and electrolyte disturbances/metabolic disturbances. Treated with IV fluids initially until tolerating p.o. intake. All metabolic derangements normalized more in 24 hours prior to discharge. -Discharged home with Phenergan for nausea and pantoprazole for esophagitis. Partial small bowel obstruction -Surgery consulted, appreciate their assistance in care. NG placed on admission. Decompressed well. Bowel movements began to occur and she started to have bowel function again. Diet gradually advanced to full liquids. Tolerated well without any further emesis or signs of obstruction. Strong concern that patient's medication (Rybelsus) is a culprit in her nausea vomiting and presentation. Would recommend discontinuing this medication and avoiding GLP-1's at all cost. Also has extensive history of abdominal surgeries. Differential diagnosis includes small bowel stenoses, intermittent kinking with possible adhesions, or gastroparesis with ileus complicated by medication, to n sherie a few. Given her tolerance of p.o. intake and improvement abdominal exam, no surgery needed at this time. Follow-up with surgery as an outpatient for reevaluation. DM -SSI insulin ordered during admission. A1c 8.1 on admission. Diet slowly advanced. Will resume home medications except for Rybelsus. Concern that Rybelsus is likely slowing her transit and a direct cause of her repeated ep isodes of obstruction and vomiting. Concern patient will likely need to initiate once daily long-acting insulin at night. Would recommend considering Lantus 15 to 20 units nightly to start with if decision with PCP in patient agreeable to moving forward with insulin therapy. She is hesitant at this time. Will defer further management to PCP. HYPOTHYROIDISM HTN OBESITY -Continue home levothyroxine 88 mcg. TSH 0.47. -Resume amlodipine at discharge. Total time spent on discharge 32 minutes in counseling, documentation, chart review, and direct care with patient. Exam Data for Last 24 hours Vital signs and Labs for Last 24 Hours: Temp Pulse Resp BP Pulse Ox O2 Del Method 98.2 F 79 16 130/93 H 98 Room Air 07/06/23 07:51 07/06/23 07:51 07/06/23 07:51 07/06/23 07:51 07/06/23 07:51 07/06/23 10:04 Laboratory Results - last 24 hr 07/05/23 16:23: POC Glucose 219 H 07/05/23 20:34: POC Glucose 170 H 07/06/23 05:12: POC Glucose 135 H 07/06/23 05:44: WBC 4.7 L, RBC 4.24, Hgb 12.6, Hct 38.3, MCV 90.2, MCH 29.6, MCHC 32.9, RDW 14.4, Plt Count 112 L, MPV 10.6 H, Neut % (Auto) 57.3, Lymph % (Auto) 33.3, [place] % (Auto) 7.0, Eos % (Auto) 2.0, Baso % (Auto) 0.5, Neut # (Auto) 2.7, Lymph # (Auto) 1.6, [place] # (Auto) 0.3, Eos # (Auto) 0.1, Baso # (Auto) 0.0, Sodium 139, Potassium 3.1 L, Chloride 107, Carbon Dioxide 26, Anion Gap 9.1, BUN 3 L D, Creatinine 0.40 L, Estimated Creat Clear 76, Estimated GFR 159, Est GFR ( Amer) 192 D, Glucose 155 H, Calcium 9.3, Magnesium 1.8, Total Bilirubin 0.5, AST 40 H D, ALT 25, Alkaline Phosphatase 71, Total Protein 5.6 L, Albumin 3.0 L D, Globulin 2.6, Albumin/Globulin Ratio 1.2 07/06/23 10:15: POC Glucose 235 H I & O for Last 24 hours: Intake & Output 07/03/23 07/04/23 07/05/23 07/06/23 23:59 23:59 23:59 23:59 Intake Total 0 / 100 3030 / 3160 1390 / 1870 960 / 960 Output Total 650 / 650 215 / 215 150 / 150 0 / 0 Balance -650 / -550 2815 / 2945 1240 / 1720 960 / 960 Weight 90.435 kg 90.44 kg 92 kg 89.675 kg Constitutional Constitutional: no acute distress, obese, chronically ill appearing and cooperative *Routine HEENT Exam Head: Present normocephalic Eye: Present EOMI and PERRL ENT: Present mucous membranes moist *Routine Neck Exam Neck: Present supple; Absent lymphadenopathy *Routine Respiratory Exam Respiratory: Present CTA bilaterally *Routine Cardiovascular Exam Cardiovascular: Present RRR *Routine Abdominal Exam Abdominal: Present soft and normoactive bowel sounds; Absent tenderness, distended or rebound *Routine Rectal Exam Patient deferred: visual exam *Routine Exam Patient deferred: external exam *Routine Extremities Exam Extremities: Absent cyanosis, clubbing or edema *Routine Skin Exam Skin: Present warm; Absent rash *Routine Neurological Exam Neurological: Present alert, oriented X3 and moving all extremities; Absent altered mental status Results Data Completed and Pending Labs on day of discharge: Labs from last 24 hours 07/06/23 07/06/23 07/06/23 10:15 05:44 05:12 WBC 4.7 L RBC 4.24 Hgb 12.6 Hct 38.3 MCV 90.2 MCH 29.6 MCHC 32.9 RDW 14.4 Plt Count 112 L MPV 10.6 H Neut % (Auto) 57.3 Lymph % (Auto) 33.3 [place] % (Auto) 7.0 Eos % (Auto) 2.0 Baso % (Auto) 0.5 Neut # (Auto) 2.7 Lymph # (Auto) 1.6 [place] # (Auto) 0.3 Eos # (Auto) 0.1 Baso # (Auto) 0.0 Sodium 139 Potassium 3.1 L Chloride 107 Carbon Dioxide 26 Anion Gap 9.1 BUN 3 L D Creatinine 0.40 L Estimated Creat Clear 76 Estimated GFR 159 Est GFR ( Amer) 192 D Glucose 155 H POC Glucose 235 H 135 H Calcium 9.3 Magnesium 1.8 Total Bilirubin 0.5 AST 40 H D ALT 25 Alkaline Phosphatase 71 Total Protein 5.6 L Albumin 3.0 L D Globulin 2.6 Albumin/Globulin Ratio 1.2 07/05/23 07/05/23 20:34 16:23 WBC RBC Hgb Hct MCV MCH MCHC RDW Plt Count MPV Neut % (Auto) Lymph % (Auto) [place] % (Auto) Eos % (Auto) Baso % (Auto) Neut # (Auto) Lymph # (Auto) [place] # (Auto) Eos # (Auto) Baso # (Auto) Sodium Potassium Chloride Carbon Dioxide Anion Gap BUN Creatinine Estimated Creat Clear Estimated GFR Est GFR ( Amer) Glucose POC Glucose 170 H 219 H Calcium Magnesium Total Bilirubin AST ALT Alkaline Phosphatase Total Protein Albumin Globulin Albumin/Globulin Ratio DS: Diagnosis Discharge Diagnosis (1) Partial obstruction of small intestine: Status: Acute Code(s): K56.600 - Partial intestinal obstruction, unspecified as to cause (2) SIRS (systemic inflammatory response syndrome): Status: Acute Code(s): R65.10 - Systemic inflammatory response syndrome (SIRS) of non-infectious origin without acute organ dysfunction (3) Metabolic acidosis: Status: Acute Code(s): E87.20 - Acidosis, unspecified (4) Diabetes mellitus: Status: Acute Code(s): E11.9 - Type 2 diabetes mellitus without complications Qualifiers: Diabetes mellitus type: type 2 (5) Obesity: Status: Acute Code(s): E66.9 - Obesity, unspecified Qualifiers: Body mass index: BMI 38.0-38.9 Obesity classification: adult class 2 (BMI 35 - 39.9) Obesity type: due to excess calories (6) Hypothyroidism: Status: Chronic Code(s): E03.9 - Hypothyroidism, unspecified Qualifiers: Hypothyroidism type: acquired Qualified Code(s): E03.9 - Hypothyroidism, unspecified (7) Hypertension: Status: Chronic Code(s): I10 - Essential (primary) hypertension Qualifiers: Hypertension type: primary hypertension Qualified Code(s): I10 - Essential (primary) hypertension (8) Vomiting and diarrhea: Status: Acute Code(s): R11.10 - Vomiting, unspecified; R19.7 - Diarrhea, unspecified Meds Home Medications and Allergies Home Medications Medication Instructions Recorded Confirmed Type glimepiride 4 mg tablet 8 mg PO DAILY 01/27/18 07/04/23 History levothyroxine 88 mcg tablet 88 mcg PO DAILY 01/27/18 07/04/23 History metformin 1,000 mg tablet 1,000 mg PO BID 11/29/21 07/04/23 History amlodipine 5 mg tablet 5 mg PO DAILY 09/18/22 07/04/23 History cyclobenzaprine 5 mg tablet 5 mg PO TIDP PRN Muscle Spasms 04/14/23 07/04/23 History omeprazole 20 mg capsule,delayed 20 mg PO DAILY 04/14/23 07/03/23 History release potassium chloride 20 mEq 20 meq PO BID 5 days #10 tabs 07/06/23 Rx tablet,extended release(part/cryst) (Klor-Con M) promethazine 25 mg tablet 25 mg PO TID PRN nausea and 07/06/23 Rx vomiting 5 days #15 tabs New Prescriptions to Start Prescriptions: potassium chloride [Klor-Con M20] Ash Khan promethazine Ash Khan Allergies Allergy/AdvReac Type Severity Reaction Status Date / Time chlordiazepoxide Allergy Unknown Verified 09/18/22 16:47 [From LIBRAX (WITH CLIDINIUM)] clidinium Allergy Unknown Verified 09/18/22 16:47 [From LIBRAX (WITH CLIDINIUM)] iodine [IODINE] Allergy Unknown Verified 09/18/22 16:47 Penicillins [PENICILLINS] Allergy Unknown Rash Verified 09/18/22 16:47 Sulfa (Sulfonamide Allergy Unknown Rash Verified 09/18/22 16:47 Antibiotics) [SULFA (SULFONAMIDE ANTIBIOTICS)] morphine Allergy Chest Pain Verified 09/18/22 16:47 Discharge Plan Disposition Patient Disposition: Home, Self-Care Condition: Fair Discharge Order Discharge Orders: Discharge Order (Routine); Ordered 07/06/23 Ordered By: Ash Khan Follow up Plan Follow up with: Edith King MD [Primary Care Provider] - 07/11/23 9:15 am Dwayne Correa MD [Staff Physician] - 07/18/23 10:15 am Prescriptions/Medication Reconciliation: New potassium chloride [Klor-Con M20] 20 mEq Tablet,Er Particles/Crystals 20 meq PO BID 5 Days Qty: 10 0RF promethazine 25 mg tablet 25 mg PO TID PRN (Reason: nausea and vomiting) 5 Days Qty: 15 0RF Continued metformin 1,000 mg tablet 1,000 mg PO BID Patient Comments: TAKE 1 TABLET BY MOUTH TWICE DAILY WITH A MEAL amlodipine 5 mg tablet 5 mg PO DAILY Patient Comments: TAKE 1 TABLET BY MOUTH EVERY DAY levothyroxine 88 MCG tablet 88 mcg PO DAILY glimepiride 4 MG tablet 8 mg PO DAILY omeprazole 20 mg capsule,delayed release(DR/EC) 20 mg PO DAILY Patient Comments: TAKE 1 CAPSULE BY MOUTH DAILY 30 MINUTES BEFORE BREAKFAST cyclobenzaprine 5 mg tablet 5 mg PO TIDP PRN (Reason: Muscle Spasms) Patient Comments: TAKE 1 TABLET BY MOUTH THREE TIMES DAILY DIRECTED Discontinued Rybelsus 14 mg tablet 14 mg PO DAILYDM Problem Reconciliation Problems Reviewed?: Yes Patient Discharge Instructions ACTIVITY: Continue current activity DIET: advance to your usual diet Patient Instructions: DI for Ileus, DI for Small Bowel Obstruction, DI for Sepsis -- Adult Providers Primary Care Provider: Edith King Admit Provider: Ash Khan Attending Provider: Ash Khan
== END 2023-07-06 13:47 | disposition home or self-care (01) | DRG 389 ==
LOC: ER 13:47 → 2ND 14:45
PROVIDERS: Admitting Provider Internal Medicine Adolescent Medicine; Emergency Provider Emergency Medicine; PCP Family Medicine; Visit Provider Internal Medicine Adolescent Medicine
DX: K56.600 Partial intestinal obstruction, unspecified as to cause (principal); E87.20 Acidosis, unspecified; R65.10 Systemic inflammatory response syndrome (SIRS) of non-infectious origin without acute organ dysfunction; E11.9 Type 2 diabetes mellitus without complications; E66.9 Obesity, unspecified; E03.9 Hypothyroidism, unspecified; I10 Essential (primary) hypertension; K21.9 Gastro-esophageal reflux disease without esophagitis; Z85.51 Personal history of malignant neoplasm of bladder; E78.5 Hyperlipidemia, unspecified; Z68.31 Body mass index [BMI] 31.0-31.9, adult; Z86.718 Personal history of other venous thrombosis and embolism; Z79.84 Long term (current) use of oral hypoglycemic drugs
CPT/HCPCS: 36415; 71045; 74021; 74174; 80048; 80053; 81001; 82803; 82962; 83036; 83605; 83690; 83735; 84443; 84484; 85025; 87040; 99291; J2405; J3475; Q9967

== ENCOUNTER 2023-08-13 13:00 | Outpatient (RCR) | payer MEDICARE, OTHER, SELFPAY | END 2023-08-13 14:00 | disposition home or self-care (01) | LOC: PT 13:00 | PROVIDERS: Visit Provider Neurological Surgery | DX: M54.12 Radiculopathy, cervical region (principal) | CPT/HCPCS: 97010; 97014; 97110; 97163; 97530; G0283 ==

== ENCOUNTER 2023-09-15 12:51 | Emergency (ER) | payer MEDICARE, OTHER, SELFPAY ==
--- NOTE | 2023-09-15 13:03 | XR_ITS ---
PROCEDURE INFORMATION: Exam: XR Left Ribs with PA Chest Exam date and time: 09/15/2023 1:03 PM Age: 67 years old Clinical indication: Injury or trauma; Fall; Rib area, left side; Blunt trauma; Additional info: Broken rib(s) left TECHNIQUE: Imaging protocol: Radiologic exam of the left ribs with PA chest. Views: 3 views COMPARISON: CR XR CHEST PORTABLE 07/03/2023 2:20 PM FINDINGS: Lungs: Unremarkable. No consolidation. Pleural spaces: Unremarkable. No pleural effusion. No pneumothorax. Heart/Mediastinum: Unremarkable. No cardiomegaly. Bones/joints: Unremarkable. IMPRESSION: No acute findings.
[2023-09-15 13:45] VITALS: BP 113/75; PULSE 85; RESP 17; TEMP 36.9; O2SAT 99; BMI 32.9
--- NOTE | 2023-09-15 14:28 | ED_ITS ---
Discharge Plan Disposition Patient Disposition: Home, Self-Care Condition: Good Prescriptions Prescriptions: New lidocaine 4 % adhesive patch,medicated 1 patch topical DAILY PRN (Reason: pain) Qty: 10 0RF Rx Instructions: Apply patch to area and leave on for 12 hours then removed for 12 hours No Action metformin 1,000 mg tablet 1,000 mg PO BID Patient Comments: TAKE 1 TABLET BY MOUTH TWICE DAILY WITH A MEAL amlodipine 5 mg tablet 5 mg PO DAILY Patient Comments: TAKE 1 TABLET BY MOUTH EVERY DAY levothyroxine 88 MCG tablet 88 mcg PO DAILY glimepiride 4 MG tablet 8 mg PO DAILY Referrals Follow up/Referrals: Edith King MD [Primary Care Provider] - See instructions Activity Restrictions/Add. Instructions Additional Instructions/Restrictions: Use patches as prescribed FOllow up with your Family Doctor pain continues and no improvement Over the counter Motrin and/or Tylenol for pain Straight to ER if any life threatening symptoms Clinical Impressions Clinical Impression: Rib pain Instructions Patient Instructions: Lidocaine Transdermal Patch, DI for Rib Contusion Print Language Print Language: Albanian Discharge ED Provider: Luisa Ames [facility] HPI General Stated complaint: AO fall 09/11, rib pain Mode of Arrival: Ambulatory Source of Information: Patient Limitations: No Limitations Time Seen by Provider: 09/15/23 14:28 Description of Symptoms (Recalled from Triage Doc. by RN): PATIENT STATES SHE WAS REACHING OVER A TABLE TO GET SOMETHING AND FELT HER LEFT RIBS POP. PATIENT C/O PAIN TO LEFT SIDE NEAR BREAST HEENT Symptoms (Recalled from RN notes): No Resp Symptoms (Recalled from RN notes): No Skin Symptoms (Recalled from RN notes): No MS Symptoms (Recalled from RN notes): Yes Functional Status (Recalled from RN notes): WNL History of Present Illness Provider Complaint: Patient states that she was leaning over a table to get something yesterday and felt a pop in her left ribs just under her breast State that she has been having pain in the area ever since and hurts when she moves or takes a deep breath worried that she may have cracked a rib Related Data Home Medications ?Medication ?Instructions ?Recorded ?Confirmed glimepiride 4 mg tablet 8 mg PO DAILY 01/27/18 09/15/23 levothyroxine 88 mcg tablet 88 mcg PO DAILY 01/27/18 09/15/23 metformin 1,000 mg tablet 1,000 mg PO BID 11/29/21 09/15/23 amlodipine 5 mg tablet 5 mg PO DAILY 09/18/22 09/15/23 Previous Rx's ?Medication ?Instructions ?Recorded lidocaine 4 % topical patch 1 patch topical DAILY PRN pain #10 09/15/23 ea Allergies Allergy/AdvReac Type Severity Reaction Status Date / Time chlordiazepoxide Allergy Unknown Verified 07/18/23 10:29 [From LIBRAX (WITH CLIDINIUM)] clidinium Allergy Unknown Verified 07/18/23 10:29 [From LIBRAX (WITH CLIDINIUM)] iodine [IODINE] Allergy Unknown Verified 07/18/23 10:29 Penicillins [PENICILLINS] Allergy Unknown Rash Verified 07/18/23 10:29 Sulfa (Sulfonamide Allergy Unknown Rash Verified 07/18/23 10:29 Antibiotics) [SULFA (SULFONAMIDE ANTIBIOTICS)] morphine Allergy Chest Pain Verified 07/18/23 10:29 Worker's Comp Is this a Worker's Comp case?: No [facility] Disclaimer: The information contained in this section may have been updated after the patient was seen, as this information can be updated by other users. 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 DVT (deep venous thrombosis) pt reported hx of DVT 20 years ago Diabetes mellitus, type 2 Bladder cancer Kidney stones Left wrist fracture Ankle fracture, right UTI (urinary tract infection) Cholelithiases GERD (gastroesophageal reflux disease) Dermatitis Dermatitis Dermatitis Hypothyroidism Hypertension Endometrial cancer Surgical History History of lithotripsy history of 4 in the past H/O bilateral oophorectomy H/O total hysterectomy S/P hernia surgery History of cholecystectomy Family History Other Breast cancer Endometrial cancer Family history of GERD Hypertension 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 Smoking Status: Unknown if ever smoked alcohol intake: never substance use type: denies use current occupational status: employed and other Travel in the last 8 weeks: None household members: family housing: house lives independently: No education level: high school service: No pets and animals: No ROS Obtained: Yes All systems reviewed & no additional complaints except as documented and Yes Systems reviewed as appropriate & no additional complaints except as documented Constitutional Constitutional: Reports system reviewed and no additional complaints, except as documented and Reports as per HPI ENT Ears, Nose, Mouth, and Throat: Reports system reviewed and no additional complaints, except as documented and Reports as per HPI Cardiovascular Cardiovascular: Reports system reviewed and no additional complaints, except as documented and Reports as per HPI Respiratory Respiratory: Reports system reviewed and no additional complaints, except as documented and Reports as per HPI Gastrointestinal Gastrointestingal: Reports system reviewed and no additional complaints, except as documented and as per HPI Musculoskeletal Musculoskeletal: Reports system reviewed and no additional complaints, except as documented, Reports as per HPI and Reports other (pain in left ribs with movement and deep breath ) Physical Exam General General appearance: alert and in no apparent distress ENT ENT exam: Present mucous membranes moist Chest Chest inspection: Present normal inspection, symmetric chest wall rise and tenderness Expanded Chest Exam Female Torso: 2 1. reports tenderness with palpation, no bruising no swelling noted Respiratory Respiratory exam: Present normal lung sounds bilaterally; Absent respiratory distress or wheezes Cardiovascular Cardiovascular exam: Present regular rate, normal rhythm and normal heart sounds Abdominal Exam Abdominal exam: Present soft and normal bowel sounds; Absent distention or tenderness Neurological Exam Neurological exam: Present alert, oriented X3 and normal gait Medical Decision Making Kam Inquiry Pt receiving controlled substance: No Kam was queried for this patient: No Vital Signs: 09/15/23 13:45 Temperature 98.4 F Temperature Source Oral Pulse Rate [Left Brachial] 85 Respiratory Rate 17 Blood Pressure [Left Arm] 113/75 Blood Pressure Mean [Left Arm] 87 Blood Pressure Source [Left Arm] Automatic Cuff Blood Pressure Position [Left Arm] Sitting 02 Sat by Pulse Oximetry 99 Oxygen Delivery Method Room Air Orders (Tests/Meds): ORDERS Category Date Time Status XR ribs LT min 3V w CXR1V Stat Exams 09/15/23 13:03 Completed Radiology Data #1: Image(s): Chest Image Reviewed: Yes I have reviewed radiologist's interpretation FINDINGS: Lungs: Unremarkable. No consolidation. Pleural spaces: Unremarkable. No pleural effusion. No pneumothorax. Heart/Mediastinum: Unremarkable. No cardiomegaly. Bones/joints: Unremarkable. IMPRESSION: No acute findings.
[2023-09-15 14:44] VITALS: BP 113/75; PULSE 85; RESP 17; TEMP 36.9; O2SAT 99
== END 2023-09-15 14:47 | disposition home or self-care (01) ==
PROVIDERS: Emergency Provider Nurse Practitioner; PCP Family Medicine
DX: R07.81 Pleurodynia (principal); R07.1 Chest pain on breathing
CPT/HCPCS: 71101; 99212; 99214; G0463

== ENCOUNTER 2024-03-21 10:40 | Outpatient (CLI) | payer MEDICARE, OTHER, SELFPAY ==
--- NOTE | 2024-03-21 10:46 | XR_ITS ---
FINAL REPORT CLINICAL HISTORY: Foot Pain COMPARISON: None FINDINGS: RIGHT FOOT Three views show no evidence of acute displaced fracture or dislocation of the visualized bony architecture. There are mild diffuse degenerative changes of osteopenia. Post ORIF changes are noted in the medial malleolus and distal fibula. IMPRESSION: Degenerative changes. Reviewed, Interpreted and Dictated by Zeynep Gaytan MD Transcribed by Kimber Silva Authenticated and [facility][1]
--- NOTE | 2024-03-21 10:46 | XR_ITS ---
FINAL REPORT CLINICAL HISTORY: Foot Pain COMPARISON: None FINDINGS: LEFT FOOT Three views show no evidence of acute displaced fracture or dislocation of the visualized bony architecture. There are mild diffuse degenerative changes of osteopenia. IMPRESSION: Degenerative changes. Reviewed, Interpreted and Dictated by Zeynep Gaytan MD Transcribed by Kimber Silva Authenticated and . [facility]
== END 2024-03-21 23:59 | disposition home or self-care (01) ==
LOC: RAD 10:42
PROVIDERS: PCP Family Medicine; Visit Provider Podiatrist
DX: M79.671 Pain in right foot (principal); M79.672 Pain in left foot
CPT/HCPCS: 73630